=== PATIENT | male | born 1940 | race Caucasian/White ===

== ENCOUNTER 2016-12-09 09:02 | Emergency (ER) | payer MEDICARE, BC ==
--- NOTE | 2016-12-09 10:11 | EDM.PDOC ---
ED HPI GENERAL MEDICAL PROBLEM - General Chief Complaint: Neck Problem Stated Complaint: FELL, HURT NECK AND SHOULDER Time Seen by Provider: 12/09/16 09:55 Source of Information: Reports: Patient History Limitations: Reports: No Limitations - History of Present Illness INITIAL COMMENTS - FREE TEXT/NARRATIVE: This 76 yo male patient reports to the ED with increased neck pain. The patient reports he fell while putting on his boots on Tuesday. During the fall, the patient reports he hit his head and has been having increased stiffness and pain in his neck. The patient was seen in the Clinic on Tuesday, but did not go into detail about his neck pain during that visit. Onset Date: 12/06/16 Duration: Constant Location: Reports: Neck (stiffness, pain), Upper Extremity, Left (heaviness), Upper Extremity, Right (heaviness) Quality: Reports: Ache, Dull Severity: Moderate Improves with: Reports: Medication (Oxycodone (takes for chronic back pain)) Worsens with: Reports: Movement Associated Symptoms: Reports: No Other Symptoms Lower Posterior Neck Pain Score (Numeric/FACES): 9 - Related Data Allergies Allergy/AdvReac Type Severity Reaction Status Date / Time No Known Allergies Allergy Verified 12/09/16 09:27 Home Meds: Home Meds Allopurinol [Allopurinol] 300 mg PO DAILY 12/09/16 [History] Escitalopram [Lexapro] 10 mg PO DAILY 12/09/16 [History] Finasteride [Proscar] 5 mg PO DAILY 12/09/16 [History] Furosemide [Lasix] 20 tab PO DAILY 12/09/16 [History] Insulin Lispro Prot/Lispro [HumaLOG Mix 75-25] 44 units SUBCUT BID 12/09/16 [ History] Omeprazole [Omeprazole] 20 mg PO DAILY 12/09/16 [History] Pregabalin [Lyrica] 150 mg PO TID 12/09/16 [History] Ramipril [Ramipril] 10 mg PO DAILY 12/09/16 [History] Simvastatin [Simvastatin] 20 mg PO DAILY 12/09/16 [History] Tamsulosin [Flomax] 0.4 mg PO DAILY 12/09/16 [History] metFORMIN HCl [Metformin HCl] 500 mg PO BID 12/09/16 [History] oxyCODONE HCl/Acetaminophen [Percocet 10-325 mg Tablet] 1 tab PO BID 12/09/16 [ History] Past Medical History HEENT History: Reports: Impaired Vision Cardiovascular History: Reports: High Cholesterol, Hypertension Gastrointestinal History: Reports: GERD Genitourinary History: Reports: BPH Musculoskeletal History: Reports: Back Pain, Chronic, Fracture, Gout Psychiatric History: Reports: Depression Endocrine/Metabolic History: Reports: Diabetes, Type II - Infectious Disease History Infectious Disease History: Reports: None - Past Surgical History Musculoskeletal Surgical History: Reports: Knee Replacement Other Musculoskeletal Surgeries/Procedures:: back surgery Social & Family History - Tobacco Use Smoking Status *Q: Former Smoker Used Tobacco, but Quit: Yes Month Tobacco Last Used: 1979 - Caffeine Use Caffeine Use: Reports: Coffee, Soda, Tea - Recreational Drug Use Recreational Drug Use: No ED ROS GENERAL - Review of Systems Review Of Systems: ROS reveals no pertinent complaints other than HPI. ED EXAM, UPPER BACK/NECK PAIN - Physical Exam Exam: See Below Exam Limited By: No Limitations General Appearance: Alert, WD/WN, Moderate Distress, Obese Eye Exam: Bilateral Eye: EOMI, Normal Inspection, PERRL Ears Exam: Normal External Exam, Normal Canal, Hearing Grossly Normal, Normal TMs Nose Exam: Normal Inspection, Normal Mucousa, No Blood Throat/Mouth Exam: Normal Inspection, Normal Lips, Normal Teeth, Normal Gums, Normal Oropharynx, Normal Voice, No Airway Compromise Neck Exam: Painful Range of Motion, Spinous Processes Tender (C6-C7), Stiff Neck , Tenderness Nexus Criteria: Posterior, Midline Cervical Tenderness. No: Evidence of Intoxication, Altered Level of Consciousness, Focal Neurological Deficit, Painful Distraction Injuries Cardiovascular/Respiratory: Regular Rate, Rhythm, No M/R/G, Normal Peripheral Pulses, No JVD, Normal Breath Sounds, No Respiratory Distress GI/Abdominal: Normal Bowel Sounds, Soft, Non-Tender, No Organomegaly, No Distention, No Abnormal Bruit, No Mass (Male) Exam: Deferred Rectal (Males) Exam: Deferred Back Exam: Normal Inspection, Full Range of Motion, NT Extremities: Normal Inspection, Normal Range of Motion, Non-Tender, No Pedal Edema, Normal Capillary Refill Neurologic: science technician II-XII nml As Tested, No Motor/Sensory Deficits, Alert, Normal Mood/Affect, Oriented x 3 Psychiatric: Normal Affect, Normal Mood Skin Exam: Normal Color, Warm/Dry Lymphatic: No Adenopathy Course - Vital Signs Last Recorded V/S: Last Vital Signs Temp 36.6 C 12/09/16 09:35 Pulse 89 12/09/16 09:35 Resp 16 12/09/16 09:35 BP 145/74 H 12/09/16 09:35 Pulse Ox 95 12/09/16 09:35 - Orders/Labs/Meds Orders: Active Orders 24 hr Category Date Time Status Cervical Spine wo Cont [CT] Urgent Exams 12/09/16 10:00 Taken Orphenadrine [Norflex] Med 12/09/16 11:15 Ordered 60 mg IM Q12H Medication Orders Orphenadrine Citrate (Norflex) 60 mg IM Q12H CELINA Meds: Medications Generic Name Dose Route Start Last Admin Trade Name Freq PRN Reason Stop Dose Admin Orphenadrine Citrate 60 mg 12/09/16 11:15 Norflex IM Q12H CELINA Discontinued Medications Generic Name Dose Route Start Last Admin Trade Name Freq PRN Reason Stop Dose Admin Ketorolac Tromethamine 60 mg 12/09/16 11:12 Toradol IM 12/09/16 11:13 ONETIME ONE Departure - Departure Time of Disposition: 11:16 Disposition: Home, Self-Care 01 Condition: Fair Clinical Impression: Neck muscle strain Qualifiers: Encounter type: initial encounter Qualified Code(s): S16.1XXA - Strain of muscle, fascia and tendon at neck level, initial encounter Cervical compression fracture Qualifiers: Encounter type: initial encounter Qualified Code(s): M48.52XA - Collapsed vertebra, not elsewhere classified, cervical region, initial encounter for fracture - Discharge Information Instructions: Cervical Sprain, [id number], Spinal Compression Fracture Forms: ED Department Discharge Care Plan Goals: The patient was advised of the examination and CT results during the visit. The patient was given injections of Toradol and Norflex while in the ED. The patient was given a script for Toradol (10 mg) #20 to take 1 by mouth every 6 hours with food and Flexeril (10 mg) #10 to take 1 by mouth at bedtime as needed. The patient may continue with his pain medications as prescribed. If the patient has any additional symptoms or concerns, the patient should follow- up with his primary care facility for continued evaluation and management. - My Orders Last 24 Hours: My Active Orders 12/09/16 10:00 Cervical Spine wo Cont [CT] Urgent 12/09/16 11:15 Orphenadrine [Norflex] 60 mg IM Q12H - Assessment/Plan Last 24 Hours: My Active Orders 12/09/16 10:00 Cervical Spine wo Cont [CT] Urgent 12/09/16 11:15 Orphenadrine [Norflex] 60 mg IM Q12H
[2016-12-09] MEDS ORDERED: Ketorolac 30 MG/ML SDV IM ONE (11:12)
--- NOTE | 2016-12-09 11:23 | CT ---
CLINICAL HISTORY: 76-year-old male with lower neck pain associated with a fall reported February 09 after fall off of ladder to have "near complete loss of intervertebral disc spacing C3-4 C4-5 C5- 6 and C6-C7 levels with associated hypertrophic spur formation compromising bony spinal canal" (no f ractures). Follow-up please. SCAN TECHNIQUE: Emergency unenhanced CT scan cervical spine obtained with the patient lying supine o n the Siemens multislice CT scanner [place], [place]. All data archiv ed in the PACS system for storage, reformatting and study. INTERPRETATION: Markedly abnormal. 1. 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 , unchanged since 2009. 2. *Compression fractures (insufficiency?) osteoporotic C5 and C6 vertebral bodies new since 2009 bu t without prevertebral soft tissue swelling or spondylolisthesis, i.e., age fractures uncertain. No jump locked facets. 3. Chronic reactive arthritic changes atlantoaxial joint. 4. No basal skull fracture. Mastoid sinuses clear.
[2016-12-09 11:29] VITALS: BP 159/78
== END 2016-12-09 11:35 | disposition home or self-care (01) ==
LOC: DL.ED 09:02
DX: S16.1XXA Strain of muscle, fascia and tendon at neck level, initial encounter (principal); I10 Essential (primary) hypertension; E78.00 Pure hypercholesterolemia, unspecified; K21.9 Gastro-esophageal reflux disease without esophagitis; E11.9 Type 2 diabetes mellitus without complications; Z79.84 Long term (current) use of oral hypoglycemic drugs; Z79.899 Other long term (current) drug therapy; Z87.891 Personal history of nicotine dependence; W19.XXXA Unspecified fall, initial encounter
CPT/HCPCS: 72125; 96372; 99284; J1885; J2360

== ENCOUNTER 2017-10-28 08:26 | Inpatient (IN) | payer MEDICARE, BC ==
[2017-10-28] MEDS ORDERED: Acetaminophen 325 MG Tab PO PRN (16:32)
[2017-10-28] MEDS ORDERED: Bisacodyl 5 MG Tab PO PRN (16:32)
[2017-10-28] MEDS ORDERED: Docusate Sodium 100 MG Cap PO PRN ×2 (16:32→16:45)
[2017-10-28] MEDS ORDERED: Hydrocortisone 2.5% Crm 30 GM Tube TOP PRN (16:45)
[2017-10-28] MEDS ORDERED: Non-Formulary Medication 1 Each (Acetaminophen [Tylenol Arthritis] 1,300 MG) PO PRN (16:45)
--- NOTE | 2017-10-28 16:50 | PCM.HP ---
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 He had L1 laminectomy with decompressive facetectomies L1-L2 with pedicle screw fixation and posterolateral fusion for L1 -L2 for severe stenosis and degenerative disk disease on 10/25/[address] Gentile. He was discharged to our swing bed to continue with PT/OT. Seen at bed side, patient has no complaint at this time. He only notes pain to the back. Pain is a mild discomfort, 3/10, non-radiating. He has no fever, chills, chest pain or SOB. Onset of Symptoms: Reports: Gradual Duration of Symptoms: Reports: Week(s): Quality: Reports: Dull Improves with: Reports: Rest Worsens with: Reports: None, Movement Context: Reports: Activity/Exercise Associated Symptoms: Reports: No Other Symptoms Middle Back Pain Score (Numeric/FACES): 5 - Related Data Allergies/Adverse Reactions: Allergies Allergy/AdvReac Type Severity Reaction Status Date / Time No Known Allergies Allergy Verified 10/28/17 14:17 Home Medications: Home Meds Allopurinol 300 mg PO DAILY 12/09/16 [History] Finasteride [Proscar] 5 mg PO BEDTIME 12/09/16 [History] Furosemide [Lasix] 20 tab PO DAILY 12/09/16 [History] Insulin Lispro Prot/Lispro [HumaLOG Mix 75-25] 44 units SUBCUT BIDMEALS [History] Omeprazole 20 mg PO DAILY 12/09/16 [History] Pregabalin [Lyrica] 150 mg PO TID 12/09/16 [History] Ramipril 10 mg PO DAILY 12/09/16 [History] Simvastatin 20 mg PO BEDTIME 12/09/16 [History] Tamsulosin [Flomax] 0.4 mg PO BID 12/09/16 [History] metFORMIN HCl [Metformin HCl] 1,000 mg PO BIDMEALS 12/09/16 [History] oxyCODONE HCl/Acetaminophen [Percocet 10-325 mg Tablet] 1 tab PO TID PRN [History] Acetaminophen [Tylenol Arthritis] 1,300 mg PO DAILY PRN 10/27/17 [History] DULoxetine HCl [Duloxetine HCl] 30 mg PO DAILY 10/27/17 [History] Docusate Sodium [Colace] 100 - 200 mg PO DAILY PRN 10/27/17 [History] Furosemide 20 mg PO 1400 PRN 10/27/17 [History] Hydrocortisone [Hydrocortisone 2.5% Crm] 1 applic TOP TID PRN 10/27/17 [History] Multivitamins,Therapeutic [Thera] 1 tab PO DAILY 10/27/17 [History] Past Medical History HEENT History: Reports: Impaired Vision Cardiovascular History: Reports: High Cholesterol, Hypertension Gastrointestinal History: Reports: GERD Genitourinary History: Reports: BPH, Urinary Incontinence Musculoskeletal History: Reports: Back Pain, Chronic, Fracture, Gout Psychiatric History: Reports: Depression Endocrine/Metabolic History: Reports: Diabetes, Type II - Infectious Disease History Infectious Disease History: Reports: Measles, Other (See Below) Other Infectious Disease History: years ago - Past Surgical History Musculoskeletal Surgical History: Reports: Knee Replacement Other Musculoskeletal Surgeries/Procedures:: back surgery Social & Family History - Family History Family Medical History: Noncontributory - Tobacco Use Smoking Status *Q: Former Smoker Years of Tobacco use: 25 Used Tobacco, but Quit: Yes Month/Year Tobacco Last Used: May - Caffeine Use Caffeine Use: Reports: Coffee, Soda - Recreational Drug Use Recreational Drug Use: No H&P Review of Systems - Review of Systems: Review Of Systems: See Below General: Reports: No Symptoms HEENT: Reports: No Symptoms Pulmonary: Reports: No Symptoms Cardiovascular: Reports: No Symptoms Gastrointestinal: Reports: No Symptoms Genitourinary: Reports: No Symptoms Musculoskeletal: Reports: No Symptoms Skin: Reports: No Symptoms Psychiatric: Reports: No Symptoms Neurological: Reports: No Symptoms Hematologic/Lymphatic: Reports: No Symptoms Immunologic: Reports: No Symptoms Exam - Exam Exam: See Below - Vital Signs Vital Signs: Last Vital Signs Temp 98.1 F 10/28/17 13:42 Pulse 108 H 10/28/17 13:42 Resp 20 10/28/17 13:42 BP 148/66 H 10/28/17 13:42 Pulse Ox 97 10/28/17 13:42 Weight: 236 lb 1.6 oz - Exam General: Alert, Oriented, 4 HEENT: PERRLA, Hearing Intact, Mucosa Moist & [place], Nares Patent, Normal Nasal Septum, Posterior Pharynx Clear, Conjunctiva Clear, EOMI, EACs Clear, TMs Clear Neck: Supple, Trachea Midline, 2 Lungs: Clear to Auscultation, Normal Respiratory Effort Cardiovascular: Regular Rate, Regular Rhythm GI/Abdominal Exam: Normal Bowel Sounds, Soft, Non-Tender, No Organomegaly, No Distention, No Abnormal Bruit, No Mass, Pelvis Stable (Male) Exam: No Hernia, Normal Inspection, Normal Prostate, Circumcised Rectal (Males) Exam: Normal Exam, Normal Rectal Tone, Prostate Normal Back Exam: Normal Inspection, Full Range of Motion, Other (dressing to the back appears dry and clean) Extremities: Normal Inspection, Normal Range of Motion, Non-Tender, No Pedal Edema, Normal Capillary Refill Skin: Warm, Dry, Intact Neurological: Cranial Nerves Intact, Reflexes Equal Bilateral Neuro Extensive - Mental Status: Alert, Oriented x3, Normal Mood/Affect, Normal Cognition Neuro Extensive - Motor, Sensory, Reflexes: CN II-XII Intact, Normal Gait, Normal Reflexes Psychiatric: Alert, Normal Affect, Normal Mood - Patient Data Result Diagrams: 10/29/17 06:27 10/29/17 06:27 - Problem List (1) Lumbar stenosis with neurogenic claudication SNOMED Code(s): 576463922599540 ICD Code: M48.062 - SPINAL STENOSIS, LUMBAR REGION WITH NEUROGENIC CLAUDICATION Status: Acute Current Visit: Yes Problem List Initiated/Reviewed/Updated: Yes Orders Last 24hrs: Active Orders 24 hr Category Date Time Status Patient Status [ADT] Routine ADT 10/28/17 16:35 Ordered Ambulate [RC] ASDIRECTED Care 10/28/17 16:32 Ordered Blood Glucose Check, Bedside [RC] QIDACANDBED Care 10/28/17 16:32 Ordered Oxygen Therapy [RC] PRN Care 10/28/17 16:35 Ordered Up With Assistance [RC] ASDIRECTED Care 10/28/17 16:32 Ordered VTE/DVT Education [RC] PER UNIT ROUTINE Care 10/28/17 16:35 Ordered Vital Signs [RC] PER UNIT ROUTINE Care 10/28/17 16:35 Ordered Vital Signs [RC] Q4H Care 10/28/17 16:32 Ordered Consult to Wound Ostomy Continence Nurse [CONS] Routine Cons 10/28/17 16:32 Ordered OT Evaluation and Treatment [CONS] Routine Cons 10/28/17 16:32 Ordered PT Evaluation and Treatment [CONS] Routine Cons 10/28/17 16:32 Ordered Consistent Carbohydrate Diet [DIET] Diet 10/28/17 Dinner Ordered BMP [BASIC METABOLIC PANEL,BMP] [CHEM] Routine Lab 10/28/17 05:00 Ordered CBC WITH AUTO DIFF [HEME] Routine Lab 10/29/17 05:00 Ordered Acetaminophen [Tylenol Arthritis] Med 10/28/17 16:45 Ordered 1,300 mg PO DAILY PRN Acetaminophen [Tylenol] Med 10/28/17 16:32 Ordered 650 mg PO Q4H PRN Allopurinol [Zyloprim] Med 10/29/17 09:00 Ordered 300 mg PO DAILY Bisacodyl [Dulcolax] Med 10/28/17 16:32 Ordered 5 mg PO DAILY PRN DULoxetine [Cymbalta] Med 10/29/17 09:00 Ordered 30 mg PO DAILY Docusate Sodium [Colace] Med 10/28/17 16:45 Ordered 100 - 200 mg PO DAILY PRN Docusate Sodium [Colace] Med 10/28/17 16:32 Ordered 100 mg PO BID PRN Finasteride [Proscar] Med 10/28/17 21:00 Ordered 5 mg PO BEDTIME Furosemide [Lasix] Med 10/29/17 14:00 Ordered 20 mg PO 1400 PRN Heparin Sodium Med 10/28/17 16:45 Ordered 5,000 units SUBCUT Q12H Hydrocortisone [Hydrocortisone 2.5% Crm] Med 10/28/17 16:45 Ordered 1 applic TOP TID PRN Insulin Lispro Prot/Lispro Med 10/28/17 18:00 Ordered 44 units SUBCUT BIDMEALS Multivitamins,Therapeutic [Thera] Med 10/29/17 09:00 Ordered 1 tab PO DAILY Omeprazole Med 10/29/17 09:00 Ordered 20 mg PO DAILY Pregabalin [Lyrica] Med 10/28/17 21:00 Ordered 150 mg PO TID Ramipril [Ramipril] Med 10/29/17 09:00 Ordered 10 mg PO DAILY Simvastatin [Simvastatin] Med 10/28/17 21:00 Ordered 20 mg PO BEDTIME Tamsulosin [Flomax] Med 10/28/17 21:00 Ordered 0.4 mg PO BID metFORMIN [Glucophage] Med 10/28/17 18:00 Ordered 1,000 mg PO BIDMEALS oxyCODONE HCl/Acetaminophen Med 10/28/17 16:45 Ordered 1 tab PO TID PRN Antiembolic Hose [OM.PC] Per Unit Routine Oth 10/28/17 16:41 Ordered Sequential Compression Device [OM.PC] Per Unit Routine Oth 10/28/17 16:41 Ordered Resuscitation Status Routine Resus Stat 10/28/17 16:32 Ordered Medication Orders Acetaminophen (Tylenol) 650 mg PO Q4H PRN PRN Reason: Pain (Mild 1-3)/fever Allopurinol (Zyloprim) 300 mg PO DAILY [facility]ELINA Bisacodyl (Dulcolax) 5 mg PO DAILY PRN PRN Reason: Constipation Docusate Sodium (Colace) 100 mg PO BID PRN PRN Reason: Constipation Docusate Sodium (Colace) 100 - 200 mg PO DAILY PRN PRN Reason: Constipation Duloxetine HCl (Cymbalta) 30 mg PO DAILY [facility] Finasteride (Proscar) 5 mg PO BEDTIME [facility]ELINA Furosemide (Lasix) 20 mg PO 1400 PRN PRN Reason: Edema Heparin Sodium (Porcine) (Heparin Sodium) 5,000 units SUBCUT Q12HR [facility] Hydrocortisone (Hydrocortisone 2.5% Crm) gm TOP TID PRN PRN Reason: Other Metformin HCl (Glucophage) 1,000 mg PO BIDMEALS [facility] Non-Formulary Medication (Acetaminophen [Tylenol Arthritis]) 1,300 mg PO DAILY PRN PRN Reason: Pain Non-Formulary Medication (Insulin Lispro Prot/Lispro) 44 units SUBCUT BIDMEALS [facility] Non-Formulary Medication (Multivitamins,Therapeutic [Thera]) 1 tab PO DAILY [facility] Non-Formulary Medication (Oxycodone Hcl/Acetaminophen) 1 tab PO TID PRN PRN Reason: Pain Non-Formulary Medication (Pregabalin [Lyrica]) 150 mg PO TID [facility] Non-Formulary Medication (Ramipril [Ramipril]) 10 mg PO DAILY [facility] Non-Formulary Medication (Simvastatin [Simvastatin]) 20 mg PO BEDTIME [facility] Omeprazole (Omeprazole) 20 mg PO DAILY [facility] Tamsulosin HCl (Flomax) 0.4 mg PO BID [facility] Assessment/Plan Comment:: 1. L1-L2 severe stenosis and degenerative disk disease -s/p L1 laminectomy with decompressive facetectomies L1-L2 with pedicle screw fixation and posterolateral fusion -Continue PT/OT -Continue current pain medication 2. Type 2 diabetes mellitus. -On 70/30 insulin. T -monitor blood glucose closely 3. Hypertension -BP within acceptable limits -Continue with current antihypertensive medications 4. Deep venous thrombosis (DVT) prophylaxis -Lovenox for DVT prophylaxis. 5. Anemia. This could be anemia of chronic disease. -No indication for transfusion at this time. 6. Gastroesophageal reflux disease. -Continue with proton pump inhibitor. 7. Diabetic diet 8. Full code
[2017-10-28] MEDS: Insulin Lispro Protamine/Lispro 75-25 100 Units/ML 10 ML Vial SUBCUT SCH (18:19)
[2017-10-28] MEDS: metFORMIN 500 MG Tab PO SCH (18:19)
[2017-10-28] MEDS: Acetaminophen/oxyCODONE 325-5 MG Tab PO PRN (19:57)
[2017-10-28] MEDS: Simvastatin 10 MG Tab PO SCH (20:50)
[2017-10-28] MEDS: Pregabalin 75 MG Cap PO SCH (20:50)
[2017-10-28] MEDS: Finasteride 5 MG Tab PO SCH (20:51)
[2017-10-28] MEDS: Tamsulosin 0.4 MG Cap.ER PO SCH (20:51)
[2017-10-28] MEDS: Heparin Sodium 5,000 Units/ML Vial SUBCUT SCH (20:52)
[2017-10-29] MEDS: Omeprazole 20 MG Cap.CR PO SCH (05:06)
[2017-10-29] MEDS: Acetaminophen/oxyCODONE 325-5 MG Tab PO PRN ×3 (05:06→20:38)
[2017-10-29] MEDS: Tamsulosin 0.4 MG Cap.ER PO SCH ×2 (08:25→20:28)
[2017-10-29] MEDS: DULoxetine 30 MG Cap PO SCH (08:25)
[2017-10-29] MEDS: metFORMIN 500 MG Tab PO SCH ×2 (08:25→17:20)
[2017-10-29] MEDS: Pregabalin 75 MG Cap PO SCH ×3 (08:25→20:27)
[2017-10-29] MEDS: Ramipril 5 MG Cap PO SCH (08:26)
[2017-10-29] MEDS: Multivitamins,Therapeutic Tab PO SCH (08:26)
[2017-10-29] MEDS: Allopurinol 300 MG Tab PO SCH (08:26)
[2017-10-29] MEDS: Furosemide 20 MG Tab PO SCH (08:26)
[2017-10-29] MEDS: Insulin Lispro Protamine/Lispro 75-25 100 Units/ML 10 ML Vial SUBCUT SCH ×2 (08:27→17:19)
[2017-10-29] MEDS: Heparin Sodium 5,000 Units/ML Vial SUBCUT SCH ×2 (08:29→20:44)
[2017-10-29] MEDS ORDERED: Aluminum Hydroxide/Magnesium Hydroxide/Simethicone Susp 30 ML Cup PO PRN (10:01)
[2017-10-29] MEDS ORDERED: Furosemide 20 MG Tab PO PRN (14:00)
[2017-10-29] MEDS: Simvastatin 10 MG Tab PO SCH (20:27)
[2017-10-29] MEDS: Finasteride 5 MG Tab PO SCH (20:28)
[2017-10-30] MEDS: Omeprazole 20 MG Cap.CR PO SCH (06:17)
[2017-10-30] MEDS: metFORMIN 500 MG Tab PO SCH ×2 (09:06→17:18)
[2017-10-30] MEDS: Ramipril 5 MG Cap PO SCH (09:06)
[2017-10-30] MEDS: DULoxetine 30 MG Cap PO SCH (09:07)
[2017-10-30] MEDS: Tamsulosin 0.4 MG Cap.ER PO SCH ×2 (09:08→20:12)
[2017-10-30] MEDS: Acetaminophen/oxyCODONE 325-5 MG Tab PO PRN ×3 (09:08→20:13)
[2017-10-30] MEDS: Allopurinol 300 MG Tab PO SCH (09:08)
[2017-10-30] MEDS: Multivitamins,Therapeutic Tab PO SCH (09:09)
[2017-10-30] MEDS: Furosemide 20 MG Tab PO SCH (09:09)
[2017-10-30] MEDS: Pregabalin 75 MG Cap PO SCH ×3 (09:09→20:12)
[2017-10-30] MEDS: Heparin Sodium 5,000 Units/ML Vial SUBCUT SCH ×2 (09:10→20:18)
[2017-10-30] MEDS: Insulin Lispro Protamine/Lispro 75-25 100 Units/ML 10 ML Vial SUBCUT SCH ×2 (09:12→17:22)
[2017-10-30] MEDS: Simvastatin 10 MG Tab PO SCH (20:12)
[2017-10-30] MEDS: Finasteride 5 MG Tab PO SCH (20:13)
[2017-10-31] MEDS: Omeprazole 20 MG Cap.CR PO SCH (06:20)
[2017-10-31] MEDS: Pregabalin 75 MG Cap PO SCH ×3 (08:03→22:20)
[2017-10-31] MEDS: Ramipril 5 MG Cap PO SCH (08:03)
[2017-10-31] MEDS: Acetaminophen/oxyCODONE 325-5 MG Tab PO PRN ×3 (08:04→22:21)
[2017-10-31] MEDS: metFORMIN 500 MG Tab PO SCH ×2 (08:04→18:13)
[2017-10-31] MEDS: Allopurinol 300 MG Tab PO SCH (08:04)
[2017-10-31] MEDS: Multivitamins,Therapeutic Tab PO SCH (08:04)
[2017-10-31] MEDS: Tamsulosin 0.4 MG Cap.ER PO SCH ×2 (08:05→22:21)
[2017-10-31] MEDS: DULoxetine 30 MG Cap PO SCH (08:05)
[2017-10-31] MEDS: Insulin Lispro Protamine/Lispro 75-25 100 Units/ML 10 ML Vial SUBCUT SCH ×2 (08:06→18:14)
[2017-10-31] MEDS: Heparin Sodium 5,000 Units/ML Vial SUBCUT SCH ×2 (08:06→22:20)
[2017-10-31] MEDS: Furosemide 20 MG Tab PO SCH (08:06)
[2017-10-31] MEDS: Simvastatin 10 MG Tab PO SCH (22:20)
[2017-10-31] MEDS: Finasteride 5 MG Tab PO SCH (22:23)
[2017-11-01] MEDS: Omeprazole 20 MG Cap.CR PO SCH (06:40)
--- NOTE | 2017-11-01 08:25 | PCM.PN ---
- General Info Date of Service: 11/01/17 Admission Dx/Problem (Free Text): Admission Diagnosis/Problem Admission Diagnosis/Problem Spinal stenosis of lumbar region Subjective Update: Becca Gaitan is 77 y/o male with PMH of thoracic myelopathy secondary to arachnoid cyst resulting in spinal stenosis requiring T 10-T 12 laminectomy in 03/2017, diabetes, hypertension, HLD. He had L1 laminectomy with decompressive facetectomies L1-L2 with pedicle screw fixation and posterolateral fusion for L1 -L2 for severe stenosis and degenerative disk disease on 10/25/[address] Gentile. He was discharged to our swing bed to continue with PT/OT. Seen at bed side, patient has no complaint at this time. No fever or chills. Had episode of hypoglycemia and his insulin was decreased yesterday. Functional Status: Reports: Pain Controlled - Review of Systems General: Reports: No Symptoms HEENT: Reports: No Symptoms Pulmonary: Reports: No Symptoms Cardiovascular: Reports: No Symptoms Gastrointestinal: Reports: No Symptoms Genitourinary: Reports: No Symptoms Musculoskeletal: Reports: No Symptoms Skin: Reports: No Symptoms Neurological: Reports: No Symptoms Psychiatric: Reports: No Symptoms - Patient Data Vitals - Most Recent: Last Vital Signs Temp 97.5 F 11/01/17 08:16 Pulse 93 11/01/17 08:16 Resp 20 11/01/17 08:16 BP 140/63 11/01/17 08:16 Pulse Ox 97 11/01/17 08:16 Weight - Most Recent: 236 lb 1.6 oz I&O - Last 24 Hours: Intake & Output 10/31/17 11/01/17 11/01/17 22:59 06:59 14:59 Intake Total 130 550 Balance 130 550 Lab Results Last 24 Hours: Laboratory Results - last 24 hr 10/31/17 10/31/17 10/31/17 Range/Units 07:31 11:47 16:44 POC Glucose 139 H 133 H 136 H (83-110) mg/dl 10/31/17 11/01/17 Range/Units 20:51 07:51 POC Glucose 143 H 126 H (83-110) mg/dl Med Orders - Current: Current Medications Acetaminophen (Tylenol) 650 mg PO Q4H PRN PRN Reason: Pain (Mild 1-3)/fever Al Hydroxide/Mg Hydroxide (Mag-Al Plus) 30 ml PO Q8H PRN PRN Reason: Constipation Allopurinol (Zyloprim) 300 mg PO DAILY [facility] Last Admin: 10/31/17 08:04 Dose: 300 mg Bisacodyl (Dulcolax) 5 mg PO DAILY PRN PRN Reason: Constipation Docusate Sodium (Colace) 100 mg PO BID PRN PRN Reason: Constipation Last Admin: 10/29/17 05:11 Dose: 100 mg Docusate Sodium (Colace) 100 - 200 mg PO DAILY PRN PRN Reason: Constipation Duloxetine HCl (Cymbalta) 30 mg PO DAILY [facility] Last Admin: 10/31/17 08:05 Dose: 30 mg Finasteride (Proscar) 5 mg PO BEDTIME [facility] Last Admin: 10/31/17 22:23 Dose: 5 mg Furosemide (Lasix) 20 mg PO 1400 PRN PRN Reason: Edema Furosemide (Lasix) 20 mg PO DAILY [facility] Last Admin: 10/31/17 08:06 Dose: Not Given Heparin Sodium (Porcine) (Heparin Sodium) 5,000 units SUBCUT Q12HR [facility] Last Admin: 10/31/17 22:20 Dose: Not Given Hydrocortisone (Hydrocortisone 2.5% Crm) 0 gm TOP TID PRN PRN Reason: Other Insulin Lispro Protam/Lispro Human (Humalog Mix 75-25) 30 unit SUBCUT BIDMEALS [facility] Last Admin: 10/31/17 18:14 Dose: 30 units Metformin HCl (Glucophage) 1,000 mg PO BIDMEALS [facility] Last Admin: 10/31/17 18:13 Dose: 1,000 mg Multivitamins (Thera) 1 each PO DAILY [facility] Last Admin: 10/31/17 08:04 Dose: 1 each Omeprazole (Omeprazole) 20 mg PO ACBRK [facility] Last Admin: 11/01/17 06:40 Dose: 20 mg Oxycodone/Acetaminophen (Percocet 325-5 Mg) 1 tab PO TID PRN PRN Reason: Pain Last Admin: 10/31/17 22:21 Dose: 1 tab Pregabalin (Lyrica) 150 mg PO TID [facility] Last Admin: 10/31/17 22:20 Dose: 150 mg Ramipril (Altace) 10 mg PO DAILY [facility] Last Admin: 10/31/17 08:03 Dose: 10 mg Simvastatin (Zocor) 20 mg PO BEDTIME [facility] Last Admin: 10/31/17 22:20 Dose: 20 mg Tamsulosin HCl (Flomax) 0.4 mg PO BID [facility] Last Admin: 10/31/17 22:21 Dose: 0.4 mg Discontinued Medications Insulin Lispro Protam/Lispro Human (Humalog Mix 75-25) 44 unit SUBCUT BIDMEALS [facility] Last Admin: 10/30/17 09:12 Dose: Not Given Non-Formulary Medication (Acetaminophen [Tylenol Arthritis]) 1,300 mg PO DAILY PRN PRN Reason: Pain Oxycodone/Acetaminophen (Percocet 325-5 Mg) 1 tab PO TID PRN PRN Reason: Pain Last Admin: 10/29/17 05:06 Dose: 1 tab - Exam Quality Assessment: DVT Prophylaxis General: Alert, Oriented HEENT: Pupils Equal, Pupils Reactive, EOMI, Mucous Membr. Moist/[place] Neck: Supple Lungs: Clear to Auscultation, Normal Respiratory Effort Cardiovascular: Regular Rate, Regular Rhythm GI/Abdominal Exam: Normal Bowel Sounds, Soft, Non-Tender, No Organomegaly, No Distention, No Abnormal Bruit, No Mass, Pelvis Stable (Male) Exam: No Hernia, Normal Inspection, Normal Prostate, Circumcised Back Exam: Normal Inspection, Full Range of Motion Extremities: Normal Inspection, Normal Range of Motion, Non-Tender, No Pedal Edema, Normal Capillary Refill Skin: Warm, Dry, Intact Wound/Incisions: Healing Well Neurological: No New Focal Deficit Psy/Mental Status: Alert, Normal Affect, Normal Mood - Problem List & Annotations (1) Lumbar stenosis with neurogenic claudication SNOMED Code(s): 032768917407455 Code(s): M48.062 - SPINAL STENOSIS, LUMBAR REGION WITH NEUROGENIC CLAUDICATION Status: Acute Current Visit: Yes - Problem List Review Problem List Initiated/Reviewed/Updated: Yes - Plan Plan:: 1. L1-L2 severe stenosis and degenerative disk disease -s/p L1 laminectomy with decompressive facetectomies L1-L2 with pedicle screw fixation and posterolateral fusion -Continue PT/OT -Continue current pain medication 2. Type 2 diabetes mellitus. -70/30 insulin 30 units bid -monitor blood glucose closely 3. Hypertension -BP within acceptable limits -Continue with current antihypertensive medications 4. Deep venous thrombosis (DVT) prophylaxis -Lovenox for DVT prophylaxis. 5. Anemia. This could be anemia of chronic disease. -No indication for transfusion at this time. 6. Gastroesophageal reflux disease. -Continue with proton pump inhibitor. 7. Diabetic diet 8. Full code
[2017-11-01] MEDS: DULoxetine 30 MG Cap PO SCH (08:43)
[2017-11-01] MEDS: Insulin Lispro Protamine/Lispro 75-25 100 Units/ML 10 ML Vial SUBCUT SCH ×2 (08:43→17:06)
[2017-11-01] MEDS: Allopurinol 300 MG Tab PO SCH (08:43)
[2017-11-01] MEDS: metFORMIN 500 MG Tab PO SCH ×2 (08:44→17:06)
[2017-11-01] MEDS: Ramipril 5 MG Cap PO SCH (08:44)
[2017-11-01] MEDS: Multivitamins,Therapeutic Tab PO SCH (08:45)
[2017-11-01] MEDS: Pregabalin 75 MG Cap PO SCH ×3 (08:45→20:55)
[2017-11-01] MEDS: Tamsulosin 0.4 MG Cap.ER PO SCH ×2 (08:45→20:55)
[2017-11-01] MEDS: Heparin Sodium 5,000 Units/ML Vial SUBCUT SCH ×2 (08:48→20:58)
[2017-11-01] MEDS: Furosemide 20 MG Tab PO SCH (08:49)
[2017-11-01] MEDS: Acetaminophen/oxyCODONE 325-5 MG Tab PO PRN ×2 (09:55→20:55)
[2017-11-01] MEDS: Simvastatin 10 MG Tab PO SCH (20:50)
[2017-11-01] MEDS: Finasteride 5 MG Tab PO SCH (20:55)
[2017-11-02] MEDS: Omeprazole 20 MG Cap.CR PO SCH (05:58)
[2017-11-02] MEDS: metFORMIN 500 MG Tab PO SCH ×2 (08:11→17:23)
[2017-11-02] MEDS: Insulin Lispro Protamine/Lispro 75-25 100 Units/ML 10 ML Vial SUBCUT SCH ×2 (08:13→17:23)
[2017-11-02] MEDS: DULoxetine 30 MG Cap PO SCH (09:54)
[2017-11-02] MEDS: Multivitamins,Therapeutic Tab PO SCH (09:54)
[2017-11-02] MEDS: Allopurinol 300 MG Tab PO SCH (09:54)
[2017-11-02] MEDS: Tamsulosin 0.4 MG Cap.ER PO SCH ×2 (09:55→20:14)
[2017-11-02] MEDS: Pregabalin 75 MG Cap PO SCH ×3 (09:56→20:14)
[2017-11-02] MEDS: Ramipril 5 MG Cap PO SCH (09:56)
[2017-11-02] MEDS: Acetaminophen/oxyCODONE 325-5 MG Tab PO PRN ×2 (09:56→20:15)
[2017-11-02] MEDS: Furosemide 20 MG Tab PO SCH (09:57)
[2017-11-02] MEDS: Heparin Sodium 5,000 Units/ML Vial SUBCUT SCH ×2 (09:58→20:19)
[2017-11-02] MEDS: Simvastatin 10 MG Tab PO SCH (20:14)
[2017-11-02] MEDS: Finasteride 5 MG Tab PO SCH (20:15)
[2017-11-03] MEDS: Omeprazole 20 MG Cap.CR PO SCH (06:04)
[2017-11-03] MEDS: Acetaminophen/oxyCODONE 325-5 MG Tab PO PRN ×2 (06:05→20:07)
[2017-11-03] MEDS: Furosemide 20 MG Tab PO SCH (06:05)
[2017-11-03] MEDS: metFORMIN 500 MG Tab PO SCH ×2 (08:21→17:22)
[2017-11-03] MEDS: DULoxetine 30 MG Cap PO SCH (08:21)
[2017-11-03] MEDS: Ramipril 5 MG Cap PO SCH (08:21)
[2017-11-03] MEDS: Multivitamins,Therapeutic Tab PO SCH (08:21)
[2017-11-03] MEDS: Tamsulosin 0.4 MG Cap.ER PO SCH ×2 (08:21→20:02)
[2017-11-03] MEDS: Pregabalin 75 MG Cap PO SCH ×3 (08:21→20:01)
[2017-11-03] MEDS: Allopurinol 300 MG Tab PO SCH (08:21)
[2017-11-03] MEDS: Insulin Lispro Protamine/Lispro 75-25 100 Units/ML 10 ML Vial SUBCUT SCH ×2 (08:23→17:22)
[2017-11-03] MEDS: Heparin Sodium 5,000 Units/ML Vial SUBCUT SCH ×2 (08:25→20:04)
[2017-11-03] MEDS: Simvastatin 10 MG Tab PO SCH (20:02)
[2017-11-03] MEDS: Finasteride 5 MG Tab PO SCH (20:03)
[2017-11-04] MEDS: Omeprazole 20 MG Cap.CR PO SCH (06:15)
[2017-11-04] MEDS: Furosemide 20 MG Tab PO SCH (06:15)
[2017-11-04] MEDS: Acetaminophen/oxyCODONE 325-5 MG Tab PO PRN (06:16)
[2017-11-04] MEDS: Ramipril 5 MG Cap PO SCH (08:04)
[2017-11-04] MEDS: Allopurinol 300 MG Tab PO SCH (08:05)
[2017-11-04] MEDS: Pregabalin 75 MG Cap PO SCH (08:06)
[2017-11-04] MEDS: DULoxetine 30 MG Cap PO SCH (08:06)
[2017-11-04] MEDS: metFORMIN 500 MG Tab PO SCH (08:07)
[2017-11-04] MEDS: Multivitamins,Therapeutic Tab PO SCH (08:07)
[2017-11-04] MEDS: Tamsulosin 0.4 MG Cap.ER PO SCH (08:07)
[2017-11-04] MEDS: Insulin Lispro Protamine/Lispro 75-25 100 Units/ML 10 ML Vial SUBCUT SCH (08:08)
[2017-11-04] MEDS: Heparin Sodium 5,000 Units/ML Vial SUBCUT SCH (08:12)
[2017-11-04 08:14] VITALS: BP 114/48
--- NOTE | 2017-11-04 10:14 | PCM.DCSUM1 ---
Discharge Summary - Hospital Course Free Text/Narrative:: Admitted to swing bed for physical and occupational therapy 1. L1-L2 severe stenosis and degenerative disk disease -s/p L1 laminectomy with decompressive facetectomies L1-L2 with pedicle screw fixation and posterolateral fusion We will continue outpatient physical and occupational therapy 2. Type 2 diabetes mellitus. -70/30 insulin 30 units bid -monitor blood glucose at home 3. Hypertension -BP within acceptable limits 4. Gastroesophageal reflux disease. -Continue with proton pump inhibitor. Diagnosis: Stroke: No - Discharge Data Discharge Date: 11/04/17 Discharge Disposition: Home, Self-Care 01 Condition: Good - Patient Summary/Data Consults: Consultations 10/28/17 16:32 OT Evaluation and Treatment [CONS] Routine PT Evaluation and Treatment [CONS] Routine - Patient Instructions Diet: Heart Healthy Diet - Discharge Plan Prescriptions/Med Rec: Insulin Lispro Prot/Lispro [HumaLOG Mix 75-25] 30 unit SUBCUT BIDMEALS #1 vial Home Medications: Home Meds Allopurinol 300 mg PO DAILY 12/09/16 [History] Finasteride [Proscar] 5 mg PO BEDTIME 12/09/16 [History] Furosemide [Lasix] 20 tab PO DAILY 12/09/16 [History] Omeprazole 20 mg PO DAILY 12/09/16 [History] Pregabalin [Lyrica] 150 mg PO TID 12/09/16 [History] Ramipril 10 mg PO DAILY 12/09/16 [History] Simvastatin 20 mg PO BEDTIME 12/09/16 [History] Tamsulosin [Flomax] 0.4 mg PO BID 12/09/16 [History] metFORMIN HCl [Metformin HCl] 1,000 mg PO BIDMEALS 12/09/16 [History] oxyCODONE HCl/Acetaminophen [Percocet 10-325 mg Tablet] 1 tab PO TID PRN [History] Acetaminophen [Tylenol Arthritis] 1,300 mg PO DAILY PRN 10/27/17 [History] DULoxetine HCl [Duloxetine HCl] 30 mg PO DAILY 10/27/17 [History] Docusate Sodium [Colace] 100 - 200 mg PO DAILY PRN 10/27/17 [History] Furosemide 20 mg PO 1400 PRN 10/27/17 [History] Hydrocortisone [Hydrocortisone 2.5% Crm] 1 applic TOP TID PRN 10/27/17 [History] Multivitamins,Therapeutic [Thera] 1 tab PO DAILY 10/27/17 [History] Insulin Lispro Prot/Lispro [HumaLOG Mix 75-25] 30 unit SUBCUT BIDMEALS #1 vial 11/04/17 [Rx] Patient Handouts: Spinal Stenosis - General Info Date of Service: 11/04/17 Functional Status: Reports: Pain Controlled - Review of Systems General: Denies: Fever Pulmonary: Denies: Shortness of Breath Cardiovascular: Denies: Chest Pain Gastrointestinal: Denies: Abdominal Pain Neurological: Denies: Confusion - Patient Data Vitals - Most Recent: Last Vital Signs Temp 36.8 C 11/04/17 08:00 Pulse 90 11/04/17 08:00 Resp 18 11/04/17 08:00 BP 114/48 L 11/04/17 08:04 Pulse Ox 98 11/04/17 08:00 Weight - Most Recent: 104.054 kg I&O - Last 24 hours: Intake & Output 11/03/17 11/04/17 11/04/17 22:59 06:59 14:59 Intake Total 60 400 Balance 60 400 Lab Results - Last 24 hrs: Laboratory Results - last 24 hr 11/03/17 11/03/17 11/03/17 Range/Units 07:54 11:42 16:48 POC Glucose 143 H 117 H 156 H (83-110) mg/dl 11/03/17 11/03/17 11/04/17 Range/Units 21:21 23:00 07:29 POC Glucose 65 L 115 H 130 H (83-110) mg/dl Med Orders - Current: Current Medications Acetaminophen (Tylenol) 650 mg PO Q4H PRN PRN Reason: Pain (Mild 1-3)/fever Last Admin: 11/02/17 11:06 Dose: 650 mg Al Hydroxide/Mg Hydroxide (Mag-Al Plus) 30 ml PO Q8H PRN PRN Reason: Constipation Allopurinol (Zyloprim) 300 mg PO DAILY [facility] Last Admin: 11/04/17 08:05 Dose: 300 mg Bisacodyl (Dulcolax) 5 mg PO DAILY PRN PRN Reason: Constipation Docusate Sodium (Colace) 100 mg PO BID PRN PRN Reason: Constipation Last Admin: 10/29/17 05:11 Dose: 100 mg Docusate Sodium (Colace) 100 - 200 mg PO DAILY PRN PRN Reason: Constipation Duloxetine HCl (Cymbalta) 30 mg PO DAILY [facility] Last Admin: 11/04/17 08:06 Dose: 30 mg Finasteride (Proscar) 5 mg PO BEDTIME [facility] Last Admin: 11/03/17 20:03 Dose: 5 mg Furosemide (Lasix) 20 mg PO 1400 PRN PRN Reason: Edema Furosemide (Lasix) 20 mg PO DAILY@0700 [facility] Last Admin: 11/04/17 06:15 Dose: 20 mg Heparin Sodium (Porcine) (Heparin Sodium) 5,000 units SUBCUT Q12HR [facility] Last Admin: 11/04/17 08:12 Dose: 5,000 units Hydrocortisone (Hydrocortisone 2.5% Crm) 0 gm TOP TID PRN PRN Reason: Other Insulin Lispro Protam/Lispro Human (Humalog Mix 75-25) 30 unit SUBCUT BIDMEALS [facility] Last Admin: 11/04/17 08:08 Dose: 30 units Metformin HCl (Glucophage) 1,000 mg PO BIDMEALS [facility] Last Admin: 11/04/17 08:07 Dose: 1,000 mg Multivitamins (Thera) 1 each PO DAILY [facility] Last Admin: 11/04/17 08:07 Dose: 1 each Omeprazole (Omeprazole) 20 mg PO ACBRK [facility] Last Admin: 11/04/17 06:15 Dose: 20 mg Oxycodone/Acetaminophen (Percocet 325-5 Mg) 1 tab PO TID PRN PRN Reason: Pain Last Admin: 11/04/17 06:16 Dose: 1 tab Pregabalin (Lyrica) 150 mg PO TID [facility] Last Admin: 11/04/17 08:06 Dose: 150 mg Ramipril (Altace) 10 mg PO DAILY [facility] Last Admin: 11/04/17 08:04 Dose: 10 mg Simvastatin (Zocor) 20 mg PO BEDTIME [facility] Last Admin: 11/03/17 20:02 Dose: 20 mg Tamsulosin HCl (Flomax) 0.4 mg PO BID [facility] Last Admin: 11/04/17 08:07 Dose: 0.4 mg Discontinued Medications Furosemide (Lasix) 20 mg PO DAILY [facility] Last Admin: 11/02/17 09:57 Dose: Not Given Insulin Lispro Protam/Lispro Human (Humalog Mix 75-25) 44 unit SUBCUT BIDMEALS [facility] Last Admin: 10/30/17 09:12 Dose: Not Given Non-Formulary Medication (Acetaminophen [Tylenol Arthritis]) 1,300 mg PO DAILY PRN PRN Reason: Pain Oxycodone/Acetaminophen (Percocet 325-5 Mg) 1 tab PO TID PRN PRN Reason: Pain Last Admin: 10/29/17 05:06 Dose: 1 tab - Exam General: Reports: Alert, Oriented Neck: Reports: Supple Lungs: Reports: Clear to Auscultation, Normal Respiratory Effort Cardiovascular: Reports: Regular Rate, Regular Rhythm GI/Abdominal Exam: Normal Bowel Sounds, Soft, Non-Tender Extremities: No Pedal Edema
== END 2017-11-04 11:30 | disposition home or self-care (01) | DRG 561 ==
LOC: UNDOADMIN 13:19 → DL.MS 13:19
PROVIDERS: ADMIT Student in an Organized Health Care Education/Training Program; ATTEND Student in an Organized Health Care Education/Training Program
DX: Z47.89 Encounter for other orthopedic aftercare (principal); M48.062 Spinal stenosis, lumbar region with neurogenic claudication; E11.9 Type 2 diabetes mellitus without complications; I10 Essential (primary) hypertension; E78.5 Hyperlipidemia, unspecified; K21.9 Gastro-esophageal reflux disease without esophagitis; N40.1 Benign prostatic hyperplasia with lower urinary tract symptoms; N39.498 Other specified urinary incontinence; M10.9 Gout, unspecified; F32.9 Major depressive disorder, single episode, unspecified; D64.9 Anemia, unspecified; H54.7 Unspecified visual loss; Z96.659 Presence of unspecified artificial knee joint; Z87.891 Personal history of nicotine dependence; Z79.4 Long term (current) use of insulin; Z79.899 Other long term (current) drug therapy
CPT/HCPCS: 36415; 80048; 82962; 85025; 97110-GO; 97110-GP; 97116-GP; 97140-GP; 97162-GP; 97166-GO; 97530-GO; A9270-GY; J1644; J1815

== ENCOUNTER 2019-06-02 19:08 | Emergency (ER) | payer MEDICARE, BC ==
--- NOTE | 2019-06-02 21:04 | EDM.PDOC ---
ED HPI GENERAL MEDICAL PROBLEM - General Chief Complaint: Back Pain or Injury Stated Complaint: FELL AT HOME, ALL OF THE BACK. Time Seen by Provider: 06/02/19 20:59 Source of Information: Reports: Patient, Family History Limitations: Reports: No Limitations - History of Present Illness INITIAL COMMENTS - FREE TEXT/NARRATIVE: spouse states pt fell onto his face yesterday think he might have been out for ? time. pt states been having LBP for long time and been unsteady alot. spouse states he is too hard to get back up from floor but their son came to help. tonight pain so bad that he has hard time in moving. pt denies chest pain but some SOB on-off. used to take water pills but stopped long time ago forgot why. right now his back hurts most. Treatments DISCHARGE PLANNER: Reports: Acetaminophen Other Treatments DISCHARGE PLANNER: 1700 Lower Back Pain Score (Numeric/FACES): 10 - Related Data Allergies Allergy/AdvReac Type Severity Reaction Status Date / Time No Known Allergies Allergy Verified 06/02/19 20:35 Home Meds: Home Meds Finasteride [Proscar] 5 mg PO BEDTIME 12/09/16 [History] Omeprazole 20 mg PO DAILY 12/09/16 [History] Pregabalin [Lyrica] 150 mg PO BID 12/09/16 [History] Ramipril 10 mg PO DAILY 12/09/16 [History] Simvastatin 20 mg PO BEDTIME 12/09/16 [History] Tamsulosin [Flomax] 0.4 mg PO BID 12/09/16 [History] allopurinoL [Allopurinol] 300 mg PO DAILY 12/09/16 [History] metFORMIN HCl [Metformin HCl] 1,000 mg PO BIDMEALS 12/09/16 [History] oxyCODONE HCl/Acetaminophen [Percocet 10-325 mg Tablet] 1 tab PO TID PRN [History] Acetaminophen [Tylenol Arthritis] 1,000 mg PO DAILY PRN 10/27/17 [History] DULoxetine HCl [Duloxetine HCl] 30 mg PO DAILY 10/27/17 [History] Docusate Sodium [Colace] 100 - 200 mg PO DAILY PRN 10/27/17 [History] Hydrocortisone [Hydrocortisone 2.5% Crm] 1 applic TOP TID PRN 10/27/17 [History] Multivitamins,Therapeutic [Thera] 1 tab PO DAILY 10/27/17 [History] Insulin Lispro Prot/Lispro [HumaLOG Mix 75-25] 50 unit SUBCUT BIDMEALS 06/02/19 [History] Past Medical History HEENT History: Reports: Impaired Vision Cardiovascular History: Reports: High Cholesterol, Hypertension Gastrointestinal History: Reports: GERD Genitourinary History: Reports: BPH, Urinary Incontinence Musculoskeletal History: Reports: Back Pain, Chronic, Fracture, Gout Psychiatric History: Reports: Depression Endocrine/Metabolic History: Reports: Diabetes, Type II - Infectious Disease History Infectious Disease History: Reports: Measles, Other (See Below) Other Infectious Disease History: years ago - Past Surgical History Musculoskeletal Surgical History: Reports: Knee Replacement Other Musculoskeletal Surgeries/Procedures:: back surgery Social & Family History - Family History Family Medical History: Noncontributory - Caffeine Use Caffeine Use: Reports: Coffee, Soda ED ROS GENERAL - Review of Systems Review Of Systems: Comprehensive ROS is negative, except as noted in HPI. ED EXAM,LOWER BACK PAIN/INJURY - Physical Exam Exam: See Below Exam Limited By: No Limitations General Appearance: Alert, WD/WN, Mild Distress, Other (discomfort) Eye Exam: Bilateral Eye: PERRL (pupils ess ER @ 4mm) Ears: Hearing Grossly Normal Throat/Mouth: Normal Voice, No Airway Compromise Head: Facial Tenderness, Other (ecchymosis jaw area) Neck: Non-Tender, Full Range of Motion Respiratory/Chest: No Respiratory Distress Cardiovascular: Regular Rate, Rhythm GI/Abdominal: Soft, Non-Tender Back Exam: Paraspinal Tenderness, Other (L2-3-4 region) Neurological: Alert, No Motor/Sensory Deficits, Oriented x 3 Psychiatric: Flat Affect Skin Exam: Warm, Dry, Normal Color Lymphatic: No Adenopathy Course - Vital Signs Last Recorded V/S: Last Vital Signs Temp 36.2 C 06/02/19 21:31 Pulse 92 06/02/19 21:46 Resp 15 06/02/19 21:46 BP 210/94 H 06/02/19 21:46 Pulse Ox 93 L 06/02/19 21:46 - Orders/Labs/Meds Orders: Active Orders 24 hr Category Date Time Status EKG 12 Lead [EKG Documentation Completion] [RC] STAT Care 06/02/19 20:46 Active Cervical Spine wo Cont [CT] Urgent Exams 06/02/19 20:56 Taken Chest 1V Frontal [CR] Urgent Exams 06/02/19 20:50 Taken Head wo Cont [CT] Urgent Exams 06/02/19 20:47 Ordered Lumbar Spine wo Cont [CT] Urgent Exams 06/02/19 20:47 Ordered Max Facial Sinus wo Cont [CT] Urgent Exams 06/02/19 20:47 Ordered CULTURE BLOOD [BC] Stat Lab 06/02/19 22:15 Received HYDROmorphone [Dilaudid] Med 06/02/19 22:48 Once 1 mg IVPUSH ONETIME ONE Labs: Laboratory Tests 06/02/19 06/02/19 06/02/19 Range/Units 21:05 21:05 21:05 WBC 12.4 H (5.0-10.0) 10^3/uL RBC 3.21 L (4.6-6.2) 10^6/uL Hgb 10.4 L (14.0-18.0) g/dL Hct 29.7 L (40.0-54.0) % MCV 92.5 (80-100) fL MCH 32.4 (27.0-34.0) pg MCHC 35.0 (33.0-35.0) g/dL Plt Count 226 D (150-450) 10^3/uL Neut % (Auto) 85.9 H (42.2-75.2) % Lymph % (Auto) 7.2 L (20.5-50.1) % [place] % (Auto) 6.1 (2-8) % Eos % (Auto) 0.6 L (1.0-3.0) % Baso % (Auto) 0.2 (0.0-1.0) % Sodium 128 L (135-145) mmol/L Potassium 5.0 (3.6-5.0) mmol/L Chloride 95 L (101-111) mmol/L Carbon Dioxide 22.0 (21.0-31.0) mmol/L Anion Gap 16.0 BUN 14 (7-18) mg/dL Creatinine 1.4 H (0.6-1.3) mg/dL Est Cr Clr Drug Dosing 44.18 mL/min Estimated GFR (MDRD) 49 BUN/Creatinine Ratio 10.00 Glucose 232 H (74-105) mg/dL Lactic Acid (0.5-2.0) mmol/L Calcium 9.0 (8.4-10.2) mg/dl Total Bilirubin 0.9 (0.2-1.0) mg/dL AST 20 (10-42) IU/L ALT 19 (10-60) IU/L Alkaline Phosphatase 53 (42-121) IU/L Troponin I < 0.02 (0.00-0.02) ng/ml B-Natriuretic Peptide 13 (0-100) pg/ml Total Protein 7.5 (6.7-8.2) g/dl Albumin 4.2 (3.2-5.5) g/dl Globulin 3.3 Albumin/Globulin Ratio 1.27 Urine Color (YELLOW) Urine Appearance (CLEAR) Urine pH (5.0-9.0) Ur Specific [place] (1.005-1.030) Urine Protein (NEGATIVE) Urine Glucose (UA) (NEGATIVE) Urine Ketones (NEGATIVE) Urine Occult Blood (NEGATIVE) Urine Nitrite (NEGATIVE) Urine Bilirubin (NEGATIVE) Urine Urobilinogen (0.2-1.0) mg/dL Ur Leukocyte Esterase (NEGATIVE) Urine RBC /HPF Urine WBC (0-5/HPF) /HPF Ur Epithelial Cells (NOT SEEN) /HPF Urine Bacteria (0-FEW/HPF) /HPF 06/02/19 06/02/19 Range/Units 22:00 22:15 WBC (5.0-10.0) 10^3/uL RBC (4.6-6.2) 10^6/uL Hgb (14.0-18.0) g/dL Hct (40.0-54.0) % MCV (80-100) fL MCH (27.0-34.0) pg MCHC (33.0-35.0) g/dL Plt Count (150-450) 10^3/uL Neut % (Auto) (42.2-75.2) % Lymph % (Auto) (20.5-50.1) % [place] % (Auto) (2-8) % Eos % (Auto) (1.0-3.0) % Baso % (Auto) (0.0-1.0) % Sodium (135-145) mmol/L Potassium (3.6-5.0) mmol/L Chloride (101-111) mmol/L Carbon Dioxide (21.0-31.0) mmol/L Anion Gap BUN (7-18) mg/dL Creatinine (0.6-1.3) mg/dL Est Cr Clr Drug Dosing mL/min Estimated GFR (MDRD) BUN/Creatinine Ratio Glucose (74-105) mg/dL Lactic Acid 2.0 (0.5-2.0) mmol/L Calcium (8.4-10.2) mg/dl Total Bilirubin (0.2-1.0) mg/dL AST (10-42) IU/L ALT (10-60) IU/L Alkaline Phosphatase (42-121) IU/L Troponin I (0.00-0.02) ng/ml B-Natriuretic Peptide (0-100) pg/ml Total Protein (6.7-8.2) g/dl Albumin (3.2-5.5) g/dl Globulin Albumin/Globulin Ratio Urine Color Yellow (YELLOW) Urine Appearance Clear (CLEAR) Urine pH 6.5 (5.0-9.0) Ur Specific [place] 1.015 (1.005-1.030) Urine Protein 30 H (NEGATIVE) Urine Glucose (UA) 500 H (NEGATIVE) Urine Ketones Trace H (NEGATIVE) Urine Occult Blood Negative (NEGATIVE) Urine Nitrite Negative (NEGATIVE) Urine Bilirubin Negative (NEGATIVE) Urine Urobilinogen 0.2 (0.2-1.0) mg/dL Ur Leukocyte Esterase Negative (NEGATIVE) Urine RBC Not seen /HPF Urine WBC Not seen (0-5/HPF) /HPF Ur Epithelial Cells Rare (NOT SEEN) /HPF Urine Bacteria Rare (0-FEW/HPF) /HPF Meds: Medications Discontinued Medications Generic Name Dose Route Start Last Admin Trade Name Therese PRN Reason Stop Dose Admin Fentanyl 100 mcg 06/02/19 21:30 06/02/19 21:34 Sublimaze IVPUSH 06/02/19 21:31 100 mcg ONETIME ONE Administration - Re-Assessments/Exams Free Text/Narrative Re-Assessment/Exam: 06/02/19 22:[address] Diaz @ [facility] who kindly accepted pt. Departure - Departure Time of Disposition: 22:49 Disposition: DC/Tfer to Acute Hospital 02 Condition: Good Clinical Impression: Closed L3 vertebral fracture Qualifiers: Encounter type: initial encounter Fracture morphology: unspecified fracture morphology Qualified Code(s): S32.039A - Unspecified fracture of third lumbar vertebra, initial encounter for closed fracture - Discharge Information Forms: Interfacility Transfer EMTALA Sepsis Event Note - Evaluation Sepsis Screening Result: No Definite Risk - Focused Exam Vital Signs: Vital Signs Temp Pulse Resp BP Pulse Ox 06/02/19 21:46 92 15 210/94 H 93 L 06/02/19 21:31 36.2 C 97 19 208/91 H 94 L 06/02/19 20:00 36.2 C 96 15 163/67 H 96 Date Exam was Performed: 06/02/19 Time Exam was Performed: 22:49 - My Orders Last 24 Hours: My Active Orders 06/02/19 20:46 EKG 12 Lead [EKG Documentation Completion] [RC] STAT 06/02/19 20:47 Head wo Cont [CT] Urgent Lumbar Spine wo Cont [CT] Urgent Max Facial Sinus wo Cont [CT] Urgent 06/02/19 20:50 Chest 1V Frontal [CR] Urgent 06/02/19 20:56 Cervical Spine wo Cont [CT] Urgent 06/02/19 22:15 CULTURE BLOOD [BC] Stat 06/02/19 22:48 HYDROmorphone [Dilaudid] 1 mg IVPUSH ONETIME ONE - Assessment/Plan Last 24 Hours: My Active Orders 06/02/19 20:46 EKG 12 Lead [EKG Documentation Completion] [RC] STAT 06/02/19 20:47 Head wo Cont [CT] Urgent Lumbar Spine wo Cont [CT] Urgent Max Facial Sinus wo Cont [CT] Urgent 06/02/19 20:50 Chest 1V Frontal [CR] Urgent 06/02/19 20:56 Cervical Spine wo Cont [CT] Urgent 06/02/19 22:15 CULTURE BLOOD [BC] Stat 06/02/19 22:48 HYDROmorphone [Dilaudid] 1 mg IVPUSH ONETIME ONE
[2019-06-02 21:30] LABS: CHLORIDE,CL 95 mmol/L (101-111); SODIUM,NA 128 mmol/L (135-145)
[2019-06-02] MEDS ORDERED: fentaNYL 100 MCG/2 ML SDV IVPUSH ONE ×2 (21:30→23:20)
[2019-06-02] MEDS ORDERED: HYDROmorphone 1 MG/ML Syringe IVPUSH ONE (22:48)
[2019-06-02 23:01] VITALS: BP 178/82; PULSE 93
== END 2019-06-02 23:39 ==
LOC: DL.ED 19:08
DX: S32.039A Unspecified fracture of third lumbar vertebra, initial encounter for closed fracture (principal); I10 Essential (primary) hypertension; E11.9 Type 2 diabetes mellitus without complications; K21.9 Gastro-esophageal reflux disease without esophagitis; E78.00 Pure hypercholesterolemia, unspecified; M10.9 Gout, unspecified; F32.9 Major depressive disorder, single episode, unspecified; N40.0 Benign prostatic hyperplasia without lower urinary tract symptoms; Z79.899 Other long term (current) drug therapy; Z79.4 Long term (current) use of insulin; W19.XXXA Unspecified fall, initial encounter; Y92.009 Unspecified place in unspecified non-institutional (private) residence as the place of occurrence of the external cause
CPT/HCPCS: 36415; 70450; 70486; 71045; 72125; 72131; 80053; 81001; 83605; 83880; 84484; 85025; 87040; 93005; 96374; 96375; 96376; 99285; J1170; J3010

== ENCOUNTER 2019-09-04 13:41 | Inpatient (IN) | payer MEDICARE, BC ==
--- NOTE | 2019-09-04 14:25 | EDM.PDOC ---
ED HPI GENERAL MEDICAL PROBLEM - General Chief Complaint: Back Pain or Injury Stated Complaint: FELL A FEW TIMES,ALZHEIMERS Time Seen by Provider: 09/04/19 14:00 Source of Information: Reports: Patient, Family (Patient's ) History Limitations: Reports: Other (The patient has Alzheimers) - History of Present Illness INITIAL COMMENTS - FREE TEXT/NARRATIVE: This 79 yo male patient was brought to the ED by his due to numerous falls and back pain. The patient reports his back pain is worse today than yesterday. The patient's reports the patient fell yesterday and was seen at the [facility] (had x-rays of his lower back and hips with no new fractures). The patient fell again this morning at about 0600. Since the fall, the patient reports increased back pain and reduced mobility. The patient has had several surgeries on his lower back (last surgery was in May). Since the last surgery, the patient has been experiencing increased pain. The patient was placed in intermediate, but was take out of the intermediate on July 03. Since the patient came home, he has had increased difficulties ambulating and has had multiple falls. The patient has a history of chronic low back pain, Alzheimers, diabetes and gout. Onset: Unknown/Unsure Duration: Constant Location: Reports: Back (low back ) Severity: Moderate Improves with: Reports: None Worsens with: Reports: None Context: Reports: Other Associated Symptoms: Reports: No Other Symptoms Lower Back Pain Score (Numeric/FACES): 8 - Related Data Allergies Allergy/AdvReac Type Severity Reaction Status Date / Time No Known Allergies Allergy Verified 09/04/19 14:53 Home Meds: Home Meds Finasteride [Proscar] 5 mg PO BEDTIME 12/09/16 [History] Omeprazole 20 mg PO DAILY 12/09/16 [History] Pregabalin [Lyrica] 150 mg PO BID 12/09/16 [History] Simvastatin 20 mg PO BEDTIME 12/09/16 [History] Tamsulosin [Flomax] 0.4 mg PO BID 12/09/16 [History] allopurinoL [Allopurinol] 300 mg PO DAILY 12/09/16 [History] metFORMIN HCl [Metformin HCl] 1,000 mg PO BIDMEALS 12/09/16 [History] oxyCODONE HCl/Acetaminophen [Percocet 10-325 mg Tablet] 1 tab PO TID PRN [History] Acetaminophen [Tylenol Arthritis] 1,300 mg PO DAILY PRN 10/27/17 [History] DULoxetine HCl [Duloxetine HCl] 30 mg PO DAILY 10/27/17 [History] Docusate Sodium [Colace] 100 - 200 mg PO DAILY PRN 10/27/17 [History] Hydrocortisone [Hydrocortisone 2.5% Crm] 1 applic TOP TID PRN 10/27/17 [History] Multivitamins,Therapeutic [Thera] 1 tab PO DAILY 10/27/17 [History] Bumetanide 0.5 mg PO DAILY 09/04/19 [History] Insulin Detemir [Levemir Flextouch] 30 units SQ BEDTIME 09/04/19 [History] Insulin Detemir [Levemir Flextouch] 35 units SQ DAILY 09/04/19 [History] Insulin Lispro [Humalog] 4 units SQ TID 09/04/19 [History] carvediloL [Carvedilol] 12.5 mg PO BID 09/04/19 [History] Past Medical History HEENT History: Reports: Impaired Vision Cardiovascular History: Reports: High Cholesterol, Hypertension Gastrointestinal History: Reports: GERD Genitourinary History: Reports: BPH, Urinary Incontinence Other Genitourinary History: wears depends Musculoskeletal History: Reports: Back Pain, Chronic, Fracture, Gout Other Musculoskeletal History: Back surg. 2 knee replacements. Psychiatric History: Reports: Depression Endocrine/Metabolic History: Reports: Diabetes, Type II Dermatologic History: Reports: Other (See Below) Other Dermatologic History: itchy skin - Infectious Disease History Infectious Disease History: Reports: Measles, Other (See Below) Other Infectious Disease History: years ago - Past Surgical History Musculoskeletal Surgical History: Reports: Knee Replacement Other Musculoskeletal Surgeries/Procedures:: back surgery Social & Family History - Family History Family Medical History: Noncontributory - Caffeine Use Caffeine Use: Reports: Coffee, Soda ED ROS GENERAL - Review of Systems Review Of Systems: Comprehensive ROS is negative, except as noted in HPI. ED EXAM, GENERAL - Physical Exam Exam: See Below Exam Limited By: No Limitations General Appearance: Alert, WD/WN, Moderate Distress Eye Exam: Bilateral Eye: EOMI, Normal Inspection, PERRL Ears: Normal External Exam, Normal Canal, Hearing Grossly Normal, Normal TMs Nose: Normal Inspection, Normal Mucosa, No Blood Throat/Mouth: Normal Inspection, Normal Lips, Normal Teeth, Normal Gums, Normal Oropharynx, Normal Voice, No Airway Compromise Head: Atraumatic, Normocephalic Neck: Normal Inspection, Supple, Non-Tender, Full Range of Motion Respiratory/Chest: No Respiratory Distress, Lungs Clear, Normal Breath Sounds, No Accessory Muscle Use, Chest Non-Tender Cardiovascular: Normal Peripheral Pulses, Regular Rate, Rhythm, No Gallop, No Rub, Systolic Murmur GI/Abdominal: Normal Bowel Sounds, Soft, Non-Tender, No Organomegaly, No Distention, No Abnormal Bruit, No Mass (Male) Exam: Deferred Rectal (Males) Exam: Deferred Back Exam: Vertebral Tenderness (low back L4-L5) Extremities: Pedal Edema, Limited Range of Motion (due to low back pain) Neurological: Alert, Oriented, Abnormal Gait (Needed assistance x3 to move from wheelchair to bed) Psychiatric: Normal Affect, Normal Mood Skin Exam: Warm, Dry, Intact, Normal Color, No Rash Lymphatic: No Adenopathy Course - Vital Signs Last Recorded V/S: Last Vital Signs Temp 35.9 C L 09/04/19 13:47 Pulse 106 H 09/04/19 13:47 Resp 18 09/04/19 13:47 BP 163/74 H 09/04/19 13:47 Pulse Ox 97 09/04/19 13:47 - Orders/Labs/Meds Orders: Active Orders 24 hr Category Date Time Status Admission Diagnosis [ADT] Urgent ADT 09/04/19 16:13 Ordered Admission Status [Patient Status] [ADT] Routine ADT 09/04/19 16:13 Ordered EKG Documentation Completion [RC] URGENT Care 09/04/19 14:09 Active CULTURE URINE [RM] Urgent Lab 09/04/19 15:25 Received Labs: Laboratory Tests 09/04/19 09/04/19 09/04/19 Range/Units 14:22 14:22 14:22 WBC 8.4 (5.0-10.0) 10^3/uL RBC 3.52 L (4.6-6.2) 10^6/uL Hgb 10.8 L (14.0-18.0) g/dL Hct 32.2 L (40.0-54.0) % MCV 91.5 (80-100) fL MCH 30.7 (27.0-34.0) pg MCHC 33.5 (33.0-35.0) g/dL Plt Count 254 (150-450) 10^3/uL Neut % (Auto) 69.1 (42.2-75.2) % Lymph % (Auto) 19.1 L (20.5-50.1) % [place] % (Auto) 5.8 (2-8) % Eos % (Auto) 5.2 H (1.0-3.0) % Baso % (Auto) 0.8 (0.0-1.0) % Sodium 134 L (136-145) mmol/L Potassium 4.4 (3.5-5.1) mmol/L Chloride 96 L (98-107) mmol/L Carbon Dioxide 26 (21-32) mmol/L Anion Gap 16.4 H (7-13) mEq/L BUN 19 H (7-18) mg/dL Creatinine 1.30 (0.70-1.30) mg/dL Est Cr Clr Drug Dosing 45.32 mL/min Estimated GFR (MDRD) 53 BUN/Creatinine Ratio 14.6 (No establ ref range) Glucose 196 H (74-99) mg/dL Calcium 9.0 (8.5-10.1) mg/dL Total Bilirubin 0.4 (0.2-1.0) mg/dL AST 19 (15-37) U/L ALT 21 (16-63) U/L Alkaline Phosphatase 74 (46-116) U/L Troponin I < 0.017 (0.000-0.056) ng/mL B-Natriuretic Peptide 11 (0-100) pg/ml Total Protein 8.0 (6.4-8.2) g/dL Albumin 3.7 (3.4-5.0) g/dL Globulin 4.3 Albumin/Globulin Ratio 0.9 Urine Color (YELLOW) Urine Appearance (CLEAR) Urine pH (5.0-9.0) Ur Specific [place] (1.005-1.030) Urine Protein (NEGATIVE) Urine Glucose (UA) (NEGATIVE) Urine Ketones (NEGATIVE) Urine Occult Blood (NEGATIVE) Urine Nitrite (NEGATIVE) Urine Bilirubin (NEGATIVE) Urine Urobilinogen (0.2-1.0) mg/dL Ur Leukocyte Esterase (NEGATIVE) Urine RBC /HPF Urine WBC (0-5/HPF) /HPF Ur Epithelial Cells (NOT SEEN) /HPF Urine Bacteria (0-FEW/HPF) /HPF 09/04/19 Range/Units 15:25 WBC (5.0-10.0) 10^3/uL RBC (4.6-6.2) 10^6/uL Hgb (14.0-18.0) g/dL Hct (40.0-54.0) % MCV (80-100) fL MCH (27.0-34.0) pg MCHC (33.0-35.0) g/dL Plt Count (150-450) 10^3/uL Neut % (Auto) (42.2-75.2) % Lymph % (Auto) (20.5-50.1) % [place] % (Auto) (2-8) % Eos % (Auto) (1.0-3.0) % Baso % (Auto) (0.0-1.0) % Sodium (136-145) mmol/L Potassium (3.5-5.1) mmol/L Chloride (98-107) mmol/L Carbon Dioxide (21-32) mmol/L Anion Gap (7-13) mEq/L BUN (7-18) mg/dL Creatinine (0.70-1.30) mg/dL Est Cr Clr Drug Dosing mL/min Estimated GFR (MDRD) BUN/Creatinine Ratio (No establ ref range) Glucose (74-99) mg/dL Calcium (8.5-10.1) mg/dL Total Bilirubin (0.2-1.0) mg/dL AST (15-37) U/L ALT (16-63) U/L Alkaline Phosphatase (46-116) U/L Troponin I (0.000-0.056) ng/mL B-Natriuretic Peptide (0-100) pg/ml Total Protein (6.4-8.2) g/dL Albumin (3.4-5.0) g/dL Globulin Albumin/Globulin Ratio Urine Color Yellow (YELLOW) Urine Appearance Slightly cloudy (CLEAR) Urine pH 6.0 (5.0-9.0) Ur Specific [place] 1.015 (1.005-1.030) Urine Protein Negative (NEGATIVE) Urine Glucose (UA) Negative (NEGATIVE) Urine Ketones Negative (NEGATIVE) Urine Occult Blood Trace-lysed H (NEGATIVE) Urine Nitrite Positive H (NEGATIVE) Urine Bilirubin Negative (NEGATIVE) Urine Urobilinogen 0.2 (0.2-1.0) mg/dL Ur Leukocyte Esterase Small H (NEGATIVE) Urine RBC 0-5 /HPF Urine WBC 30-40 H (0-5/HPF) /HPF Ur Epithelial Cells Rare (NOT SEEN) /HPF Urine Bacteria Many H (0-FEW/HPF) /HPF Departure - Departure Time of Disposition: 16:15 Disposition: Admitted As Inpatient 65 Condition: Fair Clinical Impression: Altered mental status Qualifiers: Altered mental status type: unspecified Qualified Code(s): R41.82 - Altered mental status, unspecified UTI (urinary tract infection) Qualifiers: Urinary tract infection type: site unspecified Hematuria presence: without hematuria Qualified Code(s): N39.0 - Urinary tract infection, site not specified Chronic back pain Qualifiers: Back pain location: low back pain Back pain laterality: unspecified Sciatica presence: with sciatica Sciatica laterality: sciatica of right side Qualified Code(s): M54.41 - Lumbago with sciatica, right side; G89.29 - Other chronic pain - Discharge Information *PRESCRIPTION DRUG MONITORING PROGRAM REVIEWED*: Not Applicable *COPY OF PRESCRIPTION DRUG MONITORING REPORT IN PATIENT PREMA: Not Applicable Forms: ED Department Discharge Care Plan Goals: Discussed the patient's history, examination, lab, x-ray results and CT results with Dr. Guerrero. Dr Guerrero accepted for continued evaluation and management as an inpatient at [facility] in [place]. Sepsis Event Note - Evaluation Sepsis Screening Result: No Definite Risk - Focused Exam Vital Signs: Vital Signs Temp Pulse Resp BP Pulse Ox 09/04/19 13:47 35.9 C L 106 H 18 163/74 H 97 Date Exam was Performed: 09/04/19 Time Exam was Performed: 16:15 - My Orders Last 24 Hours: My Active Orders 09/04/19 14:09 EKG Documentation Completion [RC] URGENT 09/04/19 15:25 CULTURE URINE [RM] Urgent 09/04/19 16:13 Admission Diagnosis [ADT] Urgent Admission Status [Patient Status] [ADT] Routine - Assessment/Plan Last 24 Hours: My Active Orders 09/04/19 14:09 EKG Documentation Completion [RC] URGENT 09/04/19 15:25 CULTURE URINE [RM] Urgent 09/04/19 16:13 Admission Diagnosis [ADT] Urgent Admission Status [Patient Status] [ADT] Routine
[2019-09-04 14:57] LABS: ANION GAP 16.4 mEq/L (7-13); CHLORIDE,CL 96 mmol/L (98-107); SODIUM,NA 134 mmol/L (136-145)
--- NOTE | 2019-09-04 15:03 | CR ---
EXAMINATION: Chest 1V Frontal SEX: Male AGE: 79 years CLINICAL HISTORY: 79-year-old confused male with frequent falls and low back pain. INTERPRETATION: No acute new cardiopulmonary abnormality identified in the interval since 02 June 2019 exam. Old healed fracture deformities both clavicles. External bias binding folder leads. Despite less than optimal inspiratory effort no sign of heart failure lung mass or new focal lobar pneumonia. No atelectasis/collapse. No pneumothorax or pneumomediastinum.
--- NOTE | 2019-09-04 15:14 | CT ---
EXAMINATION: Lumbar Spine wo Cont SEX: Male AGE: 79 years CLINICAL HISTORY: 79-year-old male complaining of low back pain (frequent falls). "Acute fracture L3 vertebral body with partial distraction" reported on CT scan 02 June 2019. Follow-up evaluation please. Scan technique: Volume acquisition of data emergency unenhanced CT scan of the lumbar spine obtained with patient lying supine on the Siemens multislice scanner [place], [place]. All data archived in the PACS system for storage, reformatting axial/sagittal/coronal planes and study. INTERPRETATION: Abnormal but.... 1. Unchanged except for new evidence of spinal fusion posteriorly i.e. new bilateral [place] rods now with bolts anchored posteriorly in the L3/L4 pedicles bilaterally (earlier anchored proximally and posteriorly, L1/L2 vertebra) since 02 June exam. 2. 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 (Fracture L3 unchanged) 3. *No new lower thoracic or lumbar fracture/dislocation i.e. no new signs of instability or spondylolisthesis. 4. Normal caliber aortoiliac vessels. No retroperitoneal hematoma. Kidneys unremarkable.
[2019-09-04] MEDS ORDERED: Acetaminophen 325 MG Tab PO PRN (16:39)
[2019-09-04] MEDS ORDERED: cefTRIAXone 1 GM in Sodium Chloride 0.9% 50 ML IV SCH (16:45)
--- NOTE | 2019-09-04 16:53 | PCM.PN ---
- General Info Date of Service: 09/04/19 Admission Dx/Problem (Free Text): acute encephalopathy Subjective Update: Mr. Hudson is an 79 year old male with past medical history significant for chronic kidney disease, diabetes mellitus, hyperlipidemia, dementia, hypertension who presented to the hospital with frequent falls. Patient was seen yesterday by his primary care provider and he underwent surgery of the right hip and lower spine. No fractures were seen. Patient fell again, when he called his primary care provider who recommended that patient is brought to the emergency room. In the ED, patient was afebrile, hemodynamically stable. Lab was remarkable for sodium 134, anion gap of 16.4, and 19 creatinine 1.3. UA was positive for nitrites and leukocyte esterase. Chest x-ray showed no evidence of acute abnormalities and CT spine showed presence of hardware but otherwise no evidence of fractures. On interview, said that patient has been getting weaker the past few days, is more confused than usual. On interview, patient said that he has some burning with urination. - Review of Systems Systems Review Comment:: cannot be obtained reliably due to dementia. obtained from records and . - Patient Data Vitals - Most Recent: Last Vital Signs Temp 35.9 C L 09/04/19 13:47 Pulse 106 H 09/04/19 13:47 Resp 18 09/04/19 13:47 BP 163/74 H 09/04/19 13:47 Pulse Ox 97 09/04/19 13:47 Weight - Most Recent: 104.78 kg Lab Results Last 24 Hours: Laboratory Results - last 24 hr 09/04/19 09/04/19 09/04/19 Range/Units 14:22 14:22 14:22 WBC 8.4 (5.0-10.0) 10^3/uL RBC 3.52 L (4.6-6.2) 10^6/uL Hgb 10.8 L (14.0-18.0) g/dL Hct 32.2 L (40.0-54.0) % MCV 91.5 (80-100) fL MCH 30.7 (27.0-34.0) pg MCHC 33.5 (33.0-35.0) g/dL Plt Count 254 (150-450) 10^3/uL Neut % (Auto) 69.1 (42.2-75.2) % Lymph % (Auto) 19.1 L (20.5-50.1) % [place] % (Auto) 5.8 (2-8) % Eos % (Auto) 5.2 H (1.0-3.0) % Baso % (Auto) 0.8 (0.0-1.0) % Sodium 134 L (136-145) mmol/L Potassium 4.4 (3.5-5.1) mmol/L Chloride 96 L (98-107) mmol/L Carbon Dioxide 26 (21-32) mmol/L Anion Gap 16.4 H (7-13) mEq/L BUN 19 H (7-18) mg/dL Creatinine 1.30 (0.70-1.30) mg/dL Est Cr Clr Drug Dosing 45.32 mL/min Estimated GFR (MDRD) 53 BUN/Creatinine Ratio 14.6 (No establ ref range) Glucose 196 H (74-99) mg/dL Calcium 9.0 (8.5-10.1) mg/dL Total Bilirubin 0.4 (0.2-1.0) mg/dL AST 19 (15-37) U/L ALT 21 (16-63) U/L Alkaline Phosphatase 74 (46-116) U/L Troponin I < 0.017 (0.000-0.056) ng/mL B-Natriuretic Peptide 11 (0-100) pg/ml Total Protein 8.0 (6.4-8.2) g/dL Albumin 3.7 (3.4-5.0) g/dL Globulin 4.3 Albumin/Globulin Ratio 0.9 Urine Color (YELLOW) Urine Appearance (CLEAR) Urine pH (5.0-9.0) Ur Specific [place] (1.005-1.030) Urine Protein (NEGATIVE) Urine Glucose (UA) (NEGATIVE) Urine Ketones (NEGATIVE) Urine Occult Blood (NEGATIVE) Urine Nitrite (NEGATIVE) Urine Bilirubin (NEGATIVE) Urine Urobilinogen (0.2-1.0) mg/dL Ur Leukocyte Esterase (NEGATIVE) Urine RBC /HPF Urine WBC (0-5/HPF) /HPF Ur Epithelial Cells (NOT SEEN) /HPF Urine Bacteria (0-FEW/HPF) /HPF 04/14/20 Range/Units 15:25 WBC (5.0-10.0) 10^3/uL RBC (4.6-6.2) 10^6/uL Hgb (14.0-18.0) g/dL Hct (40.0-54.0) % MCV (80-100) fL MCH (27.0-34.0) pg MCHC (33.0-35.0) g/dL Plt Count (150-450) 10^3/uL Neut % (Auto) (42.2-75.2) % Lymph % (Auto) (20.5-50.1) % [place] % (Auto) (2-8) % Eos % (Auto) (1.0-3.0) % Baso % (Auto) (0.0-1.0) % Sodium (136-145) mmol/L Potassium (3.5-5.1) mmol/L Chloride (98-107) mmol/L Carbon Dioxide (21-32) mmol/L Anion Gap (7-13) mEq/L BUN (7-18) mg/dL Creatinine (0.70-1.30) mg/dL Est Cr Clr Drug Dosing mL/min Estimated GFR (MDRD) BUN/Creatinine Ratio (No establ ref range) Glucose (74-99) mg/dL Calcium (8.5-10.1) mg/dL Total Bilirubin (0.2-1.0) mg/dL AST (15-37) U/L ALT (16-63) U/L Alkaline Phosphatase (46-116) U/L Troponin I (0.000-0.056) ng/mL B-Natriuretic Peptide (0-100) pg/ml Total Protein (6.4-8.2) g/dL Albumin (3.4-5.0) g/dL Globulin Albumin/Globulin Ratio Urine Color Yellow (YELLOW) Urine Appearance Slightly cloudy (CLEAR) Urine pH 6.0 (5.0-9.0) Ur Specific [place] 1.015 (1.005-1.030) Urine Protein Negative (NEGATIVE) Urine Glucose (UA) Negative (NEGATIVE) Urine Ketones Negative (NEGATIVE) Urine Occult Blood Trace-lysed H (NEGATIVE) Urine Nitrite Positive H (NEGATIVE) Urine Bilirubin Negative (NEGATIVE) Urine Urobilinogen 0.2 (0.2-1.0) mg/dL Ur Leukocyte Esterase Small H (NEGATIVE) Urine RBC 0-5 /HPF Urine WBC 30-40 H (0-5/HPF) /HPF Ur Epithelial Cells Rare (NOT SEEN) /HPF Urine Bacteria Many H (0-FEW/HPF) /HPF Med Orders - Current: Current Medications Acetaminophen (Tylenol) 650 mg PO Q4H PRN PRN Reason: Pain (Mild 1-3)/fever Allopurinol (Zyloprim) 300 mg PO DAILY [facility] Bumetanide (Bumex) 0.5 mg PO DAILY [facility] Duloxetine HCl (Cymbalta) 30 mg PO DAILY [facility] Finasteride (Proscar) 5 mg PO BEDTIME [facility] Heparin Sodium (Porcine) (Heparin Sodium) 5,000 units SUBCUT Q8HR [facility] Ceftriaxone Sodium 1 gm/ (Sodium Chloride) 50 mls @ 100 mls/hr IV Q24H [facility] Non-Formulary Medication (Acetaminophen/Oxycodone) 1 tab PO TID PRN PRN Reason: Pain Non-Formulary Medication (Carvedilol [Carvedilol]) 12.5 mg PO BID [facility] Non-Formulary Medication (Insulin Detemir) 30 units SQ BEDTIME [facility] Non-Formulary Medication (Insulin Detemir) 35 units SQ DAILY [facility] Non-Formulary Medication (Insulin Lispro) 4 units SQ TID [facility] Omeprazole (Omeprazole) 20 mg PO DAILY [facility] Pregabalin (Lyrica) 150 mg PO BID [facility] - Exam General: Cooperative, No Acute Distress Lungs: Clear to Auscultation, Normal Respiratory Effort GI/Abdominal Exam: Normal Bowel Sounds, Soft, Non-Tender, No Distention Extremities: Normal Inspection, No Pedal Edema Skin: Warm, Dry, Intact, Other (Venous stasis changes over bilateral shins) Neurological: No New Focal Deficit Sepsis Event Note - Evaluation Sepsis Screening Result: No Definite Risk - Focused Exam Vital Signs: Vital Signs Temp Pulse Resp BP Pulse Ox 09/04/19 13:47 35.9 C L 106 H 18 163/74 H 97 Date Exam was Performed: 09/04/19 Time Exam was Performed: 17:00 - Problem List Review Problem List Initiated/Reviewed/Updated: Yes - My Orders Last 24 Hours: My Active Orders 09/04/19 16:39 Up With Assistance [RC] ASDIRECTED OT Evaluation and Treatment [CONS] Routine PT Evaluation and Treatment [CONS] Routine Acetaminophen [Tylenol] 650 mg PO Q4H PRN Resuscitation Status Routine 09/04/19 16:40 Oxygen Therapy [RC] PRN VTE/DVT Education [RC] PER UNIT ROUTINE Vital Signs [RC] Q4H 09/04/19 16:44 Acetaminophen/oxyCODONE 1 tab PO TID PRN 09/04/19 16:45 cefTRIAXone [Rocephin] 1 gm Sodium Chloride 0.9% [Normal Saline] 50 ml IV Q24H 09/04/19 21:00 Finasteride [Proscar] 5 mg PO BEDTIME Insulin Detemir 30 units SQ BEDTIME Insulin Lispro 4 units SQ TID Pregabalin [Lyrica] 150 mg PO BID Simvastatin [Simvastatin] 20 mg PO BEDTIME Tamsulosin [Flomax] 0.4 mg PO BID carvediloL [Carvedilol] 12.5 mg PO BID 09/04/19 22:00 Heparin Sodium 5,000 units SUBCUT Q8HR 09/04/19 Dinner Consistent Carbohydrate Diet [DIET] 09/05/19 05:11 BASIC METABOLIC PANEL,BMP [CHEM] AM CBC WITH AUTO DIFF [HEME] AM 09/05/19 09:00 Bumetanide [Bumex] 0.5 mg PO DAILY DULoxetine [Cymbalta] 30 mg PO DAILY Insulin Detemir 35 units SQ DAILY Omeprazole 20 mg PO DAILY allopurinoL [Zyloprim] 300 mg PO DAILY 09/06/19 05:11 BASIC METABOLIC PANEL,BMP [CHEM] AM CBC WITH AUTO DIFF [HEME] AM 09/07/19 05:11 BASIC METABOLIC PANEL,BMP [CHEM] AM CBC WITH AUTO DIFF [HEME] AM - Plan Plan:: Acute encephalopathy with underlying dementia/recurrent falls Could be triggered by UTI We'll start patient on ceftriaxone PT/OT Possible UTI Awaiting urine culture Start patient on ceftriaxone DM 2 Continue home insulin Chronic back pain Restart home meds Hypertension Restart home meds Gout Allopurinol CKD avoid nephrotoxic agents Hyperlipidemia statin DVT prophylaxis Heparin
[2019-09-04] MEDS ORDERED: cefTRIAXone 1 GM Vial IVPUSH SCH (17:00)
--- NOTE | 2019-09-04 17:03 | PCM.HP ---
H&P History of Present Illness - General Date of Service: 09/04/19 Admit Problem/Dx: acute encephalopathy - History of Present Illness Initial Comments - Free Text/Narative: Mr. Hudson is an 79 year old male with past medical history significant for chronic kidney disease, diabetes mellitus, hyperlipidemia, dementia, hypertension who presented to the hospital with frequent falls. Patient was seen yesterday by his primary care provider and he underwent surgery of the right hip and lower spine. No fractures were seen. Patient fell again, when he called his primary care provider who recommended that patient is brought to the emergency room. In the ED, patient was afebrile, hemodynamically stable. Lab was remarkable for sodium 134, anion gap of 16.4, and 19 creatinine 1.3. UA was positive for nitrites and leukocyte esterase. Chest x-ray showed no evidence of acute abnormalities and CT spine showed presence of hardware but otherwise no evidence of fractures. On interview, said that patient has been getting weaker the past few days, is more confused than usual. On interview, patient said that he has some burning with urination. Lower Back Pain Score (Numeric/FACES): 8 - Related Data Allergies/Adverse Reactions: Allergies Allergy/AdvReac Type Severity Reaction Status Date / Time No Known Allergies Allergy Verified 09/04/19 14:53 Home Medications: Home Meds Finasteride [Proscar] 5 mg PO BEDTIME 12/09/16 [History] Omeprazole 20 mg PO DAILY 12/09/16 [History] Pregabalin [Lyrica] 150 mg PO BID 12/09/16 [History] Simvastatin 20 mg PO BEDTIME 12/09/16 [History] Tamsulosin [Flomax] 0.4 mg PO BID 12/09/16 [History] allopurinoL [Allopurinol] 300 mg PO DAILY 12/09/16 [History] metFORMIN HCl [Metformin HCl] 1,000 mg PO BIDMEALS 12/09/16 [History] oxyCODONE HCl/Acetaminophen [Percocet 10-325 mg Tablet] 1 tab PO TID PRN [History] Acetaminophen [Tylenol Arthritis] 1,300 mg PO DAILY PRN 10/27/17 [History] DULoxetine HCl [Duloxetine HCl] 30 mg PO DAILY 10/27/17 [History] Docusate Sodium [Colace] 100 - 200 mg PO DAILY PRN 10/27/17 [History] Hydrocortisone [Hydrocortisone 2.5% Crm] 1 applic TOP TID PRN 10/27/17 [History] Multivitamins,Therapeutic [Thera] 1 tab PO DAILY 10/27/17 [History] Bumetanide 0.5 mg PO DAILY 09/04/19 [History] Insulin Detemir [Levemir Flextouch] 30 units SQ BEDTIME 09/04/19 [History] Insulin Detemir [Levemir Flextouch] 35 units SQ DAILY 09/04/19 [History] Insulin Lispro [Humalog] 4 units SQ TID 09/04/19 [History] carvediloL [Carvedilol] 12.5 mg PO BID 09/04/19 [History] Past Medical History HEENT History: Reports: Impaired Vision Cardiovascular History: Reports: High Cholesterol, Hypertension Gastrointestinal History: Reports: GERD Genitourinary History: Reports: BPH, Urinary Incontinence Other Genitourinary History: wears depends Musculoskeletal History: Reports: Back Pain, Chronic, Fracture, Gout Other Musculoskeletal History: Back surg. 2 knee replacements. Psychiatric History: Reports: Depression Endocrine/Metabolic History: Reports: Diabetes, Type II Dermatologic History: Reports: Other (See Below) Other Dermatologic History: itchy skin - Infectious Disease History Infectious Disease History: Reports: Measles, Other (See Below) Other Infectious Disease History: years ago - Past Surgical History Musculoskeletal Surgical History: Reports: Knee Replacement Other Musculoskeletal Surgeries/Procedures:: back surgery Social & Family History - Family History Family Medical History: Noncontributory - Tobacco Use Smoking Status *Q: Former Smoker Used Tobacco, but Quit: Yes Month/Year Tobacco Last Used: 40 years ago - Caffeine Use Caffeine Use: Reports: Coffee, Soda H&P Review of Systems - Review of Systems: Review Of Systems: Unable To Obtain Reason Not Obtained: dementia. history obtained from old records and . Exam - Exam Exam: See Below - Vital Signs Vital Signs: Last Vital Signs Temp 35.9 C L 09/04/19 13:47 Pulse 106 H 09/04/19 13:47 Resp 18 09/04/19 13:47 BP 163/74 H 09/04/19 13:47 Pulse Ox 97 09/04/19 13:47 Weight: 104.78 kg - Exam General: Cooperative Lungs: Clear to Auscultation, Normal Respiratory Effort Cardiovascular: Regular Rate, Regular Rhythm GI/Abdominal Exam: Normal Bowel Sounds, Soft, Non-Tender, No Distention Extremities: Normal Inspection, Pedal Edema Skin: Warm, Dry, Intact, Other (venous stasis changes to legs) Psychiatric: Alert, Normal Affect - Patient Data Lab Results Last 24 hrs: Laboratory Results - last 24 hr 09/04/19 09/04/19 09/04/19 Range/Units 14:22 14:22 14:22 WBC 8.4 (5.0-10.0) 10^3/uL RBC 3.52 L (4.6-6.2) 10^6/uL Hgb 10.8 L (14.0-18.0) g/dL Hct 32.2 L (40.0-54.0) % MCV 91.5 (80-100) fL MCH 30.7 (27.0-34.0) pg MCHC 33.5 (33.0-35.0) g/dL Plt Count 254 (150-450) 10^3/uL Neut % (Auto) 69.1 (42.2-75.2) % Lymph % (Auto) 19.1 L (20.5-50.1) % [place] % (Auto) 5.8 (2-8) % Eos % (Auto) 5.2 H (1.0-3.0) % Baso % (Auto) 0.8 (0.0-1.0) % Sodium 134 L (136-145) mmol/L Potassium 4.4 (3.5-5.1) mmol/L Chloride 96 L (98-107) mmol/L Carbon Dioxide 26 (21-32) mmol/L Anion Gap 16.4 H (7-13) mEq/L BUN 19 H (7-18) mg/dL Creatinine 1.30 (0.70-1.30) mg/dL Est Cr Clr Drug Dosing 45.32 mL/min Estimated GFR (MDRD) 53 BUN/Creatinine Ratio 14.6 (No establ ref range) Glucose 196 H (74-99) mg/dL Calcium 9.0 (8.5-10.1) mg/dL Total Bilirubin 0.4 (0.2-1.0) mg/dL AST 19 (15-37) U/L ALT 21 (16-63) U/L Alkaline Phosphatase 74 (46-116) U/L Troponin I < 0.017 (0.000-0.056) ng/mL B-Natriuretic Peptide 11 (0-100) pg/ml Total Protein 8.0 (6.4-8.2) g/dL Albumin 3.7 (3.4-5.0) g/dL Globulin 4.3 Albumin/Globulin Ratio 0.9 Urine Color (YELLOW) Urine Appearance (CLEAR) Urine pH (5.0-9.0) Ur Specific [place] (1.005-1.030) Urine Protein (NEGATIVE) Urine Glucose (UA) (NEGATIVE) Urine Ketones (NEGATIVE) Urine Occult Blood (NEGATIVE) Urine Nitrite (NEGATIVE) Urine Bilirubin (NEGATIVE) Urine Urobilinogen (0.2-1.0) mg/dL Ur Leukocyte Esterase (NEGATIVE) Urine RBC /HPF Urine WBC (0-5/HPF) /HPF Ur Epithelial Cells (NOT SEEN) /HPF Urine Bacteria (0-FEW/HPF) /HPF / Range/Units 15:25 WBC (5.0-10.0) 10^3/uL RBC (4.6-6.2) 10^6/uL Hgb (14.0-18.0) g/dL Hct (40.0-54.0) % MCV (80-100) fL MCH (27.0-34.0) pg MCHC (33.0-35.0) g/dL Plt Count (150-450) 10^3/uL Neut % (Auto) (42.2-75.2) % Lymph % (Auto) (20.5-50.1) % [place] % (Auto) (2-8) % Eos % (Auto) (1.0-3.0) % Baso % (Auto) (0.0-1.0) % Sodium (136-145) mmol/L Potassium (3.5-5.1) mmol/L Chloride (98-107) mmol/L Carbon Dioxide (21-32) mmol/L Anion Gap (7-13) mEq/L BUN (7-18) mg/dL Creatinine (0.70-1.30) mg/dL Est Cr Clr Drug Dosing mL/min Estimated GFR (MDRD) BUN/Creatinine Ratio (No establ ref range) Glucose (74-99) mg/dL Calcium (8.5-10.1) mg/dL Total Bilirubin (0.2-1.0) mg/dL AST (15-37) U/L ALT (16-63) U/L Alkaline Phosphatase (46-116) U/L Troponin I (0.000-0.056) ng/mL B-Natriuretic Peptide (0-100) pg/ml Total Protein (6.4-8.2) g/dL Albumin (3.4-5.0) g/dL Globulin Albumin/Globulin Ratio Urine Color Yellow (YELLOW) Urine Appearance Slightly cloudy (CLEAR) Urine pH 6.0 (5.0-9.0) Ur Specific [place] 1.015 (1.005-1.030) Urine Protein Negative (NEGATIVE) Urine Glucose (UA) Negative (NEGATIVE) Urine Ketones Negative (NEGATIVE) Urine Occult Blood Trace-lysed H (NEGATIVE) Urine Nitrite Positive H (NEGATIVE) Urine Bilirubin Negative (NEGATIVE) Urine Urobilinogen 0.2 (0.2-1.0) mg/dL Ur Leukocyte Esterase Small H (NEGATIVE) Urine RBC 0-5 /HPF Urine WBC 30-40 H (0-5/HPF) /HPF Ur Epithelial Cells Rare (NOT SEEN) /HPF Urine Bacteria Many H (0-FEW/HPF) /HPF Result Diagrams: 09/04/19 14:22 09/04/19 14:22 Problem List Initiated/Reviewed/Updated: Yes Orders Last 24hrs: Active Orders 24 hr Category Date Time Status Admission Diagnosis [ADT] Urgent ADT 09/04/19 16:13 Ordered Admission Status [Patient Status] [ADT] Routine ADT 09/04/19 16:13 Active Oxygen Therapy [RC] PRN Care 09/04/19 16:40 Ordered Up With Assistance [RC] ASDIRECTED Care 09/04/19 16:39 Ordered VTE/DVT Education [RC] PER UNIT ROUTINE Care 09/04/19 16:40 Ordered Vital Signs [RC] Q4H Care 09/04/19 16:40 Ordered OT Evaluation and Treatment [CONS] Routine Cons 09/04/19 16:39 Ordered PT Evaluation and Treatment [CONS] Routine Cons 09/04/19 16:39 Ordered Consistent Carbohydrate Diet [DIET] Diet 09/04/19 Dinner Ordered BASIC METABOLIC PANEL,BMP [CHEM] AM Lab 09/05/19 05:11 Ordered BASIC METABOLIC PANEL,BMP [CHEM] AM Lab 09/06/19 05:11 Ordered BASIC METABOLIC PANEL,BMP [CHEM] AM Lab 09/07/19 05:11 Ordered CBC WITH AUTO DIFF [HEME] AM Lab 09/05/19 05:11 Ordered CBC WITH AUTO DIFF [HEME] AM Lab 09/06/19 05:11 Ordered CBC WITH AUTO DIFF [HEME] AM Lab 09/07/19 05:11 Ordered CULTURE URINE [RM] Urgent Lab 09/04/19 15:25 Received Acetaminophen [Tylenol] Med 09/04/19 16:39 Ordered 650 mg PO Q4H PRN Acetaminophen/oxyCODONE Med 09/04/19 16:44 Ordered 1 tab PO TID PRN Bumetanide [Bumex] Med 09/05/19 09:00 Ordered 0.5 mg PO DAILY DULoxetine [Cymbalta] Med 09/05/19 09:00 Ordered 30 mg PO DAILY Finasteride [Proscar] Med 09/04/19 21:00 Ordered 5 mg PO BEDTIME Heparin Sodium Med 09/04/19 22:00 Ordered 5,000 units SUBCUT Q8HR Insulin Detemir Med 09/04/19 21:00 Ordered 30 units SQ BEDTIME Insulin Detemir Med 09/05/19 09:00 Ordered 35 units SQ DAILY Insulin Lispro Med 09/04/19 21:00 Ordered 4 units SQ TID Omeprazole Med 09/05/19 09:00 Ordered 20 mg PO DAILY Pregabalin [Lyrica] Med 09/04/19 21:00 Ordered 150 mg PO BID Simvastatin [Simvastatin] Med 09/04/19 21:00 Ordered 20 mg PO BEDTIME Tamsulosin [Flomax] Med 09/04/19 21:00 Ordered 0.4 mg PO BID allopurinoL [Zyloprim] Med 09/05/19 09:00 Ordered 300 mg PO DAILY carvediloL [Carvedilol] Med 09/04/19 21:00 Ordered 12.5 mg PO BID cefTRIAXone [Rocephin] Med 09/04/19 17:00 Active 1 gm IVPUSH Q24H Resuscitation Status Routine Resus Stat 09/04/19 16:39 Ordered Medication Orders Acetaminophen (Tylenol) 650 mg PO Q4H PRN PRN Reason: Pain (Mild 1-3)/fever Allopurinol (Zyloprim) 300 mg PO DAILY [facility] Bumetanide (Bumex) 0.5 mg PO DAILY [facility] Carvedilol (Coreg) 12.5 mg PO BID [facility] Ceftriaxone Sodium (Rocephin) 1 gm IVPUSH Q24H [facility] Duloxetine HCl (Cymbalta) 30 mg PO DAILY [facility] Finasteride (Proscar) 5 mg PO BEDTIME [facility] Heparin Sodium (Porcine) (Heparin Sodium) 5,000 units SUBCUT Q8HR [facility] Insulin Glargine (Lantus) 30 unit SUBCUT BEDTIME [facility] Insulin Glargine (Lantus) 35 unit SUBCUT DAILY [facility] Insulin Human Lispro (Humalog) 4 unit SUBCUT TID [facility] Non-Formulary Medication (Acetaminophen/Oxycodone) 1 tab PO TID PRN PRN Reason: Pain Omeprazole (Omeprazole) 20 mg PO ACBREAKFAST [facility] Pregabalin (Lyrica) 150 mg PO BID [facility] Simvastatin (Zocor) 20 mg PO BEDTIME [facility] Tamsulosin HCl (Flomax) 0.4 mg PO BID [facility] Assessment/Plan Comment:: Acute encephalopathy with underlying dementia/recurrent falls Could be triggered by UTI We'll start patient on ceftriaxone PT/OT Possible UTI Awaiting urine culture Start patient on ceftriaxone DM 2 Continue home insulin Chronic back pain Restart home meds Hypertension Restart home meds Gout Allopurinol CKD avoid nephrotoxic agents Hyperlipidemia statin DVT prophylaxis Heparin
[2019-09-04] MEDS ORDERED: Water For Injection, Sterile 20 ML ONE (17:07)
[2019-09-04] MEDS: Insulin Lispro 100 Units/ML 3 ML Vial SUBCUT SCH (17:39)
[2019-09-04] MEDS: Tamsulosin 0.4 MG Cap.ER PO SCH (22:10)
[2019-09-04] MEDS: Finasteride 5 MG Tab PO SCH (22:10)
[2019-09-04] MEDS: Simvastatin 40 MG Tab PO SCH (22:11)
[2019-09-04] MEDS: Carvedilol 25 MG Tab PO SCH (22:14)
[2019-09-04] MEDS: Ciprofloxacin 500 MG Tab PO SCH (22:14)
[2019-09-04] MEDS: Heparin Sodium 5,000 Units/ML Vial SUBCUT SCH (22:15)
[2019-09-04] MEDS: Insulin Glarg,Human.Rec.Analog 100 Unit/ML SUBCUT SCH (22:16)
[2019-09-04] MEDS: Acetaminophen/oxyCODONE 325-5 MG Tab PO PRN (23:31)
[2019-09-04] MEDS: oxyCODONE 5 MG Tab PO PRN (23:33)
[2019-09-05] MEDS: Heparin Sodium 5,000 Units/ML Vial SUBCUT SCH ×3 (06:49→21:37)
[2019-09-05] MEDS: Omeprazole 20 MG Cap.CR PO SCH (06:49)
[2019-09-05 07:28] LABS: CHLORIDE,CL 97 mmol/L (98-107); SODIUM,NA 134 mmol/L (136-145)
[2019-09-05] MEDS: Insulin Lispro 100 Units/ML 3 ML Vial SUBCUT SCH ×3 (09:02→18:08)
[2019-09-05] MEDS: Bumetanide 1 MG Tab PO SCH (09:04)
[2019-09-05] MEDS: Ciprofloxacin 500 MG Tab PO SCH ×2 (09:05→21:11)
[2019-09-05] MEDS: Carvedilol 25 MG Tab PO SCH ×2 (09:06→21:09)
[2019-09-05] MEDS: Tamsulosin 0.4 MG Cap.ER PO SCH ×2 (09:07→21:11)
[2019-09-05] MEDS: DULoxetine 30 MG Cap PO SCH (09:07)
[2019-09-05] MEDS: Insulin Glarg,Human.Rec.Analog 100 Unit/ML SUBCUT SCH ×2 (09:09→21:35)
[2019-09-05] MEDS: Allopurinol 300 MG Tab PO SCH (09:10)
[2019-09-05] MEDS: oxyCODONE 5 MG Tab PO PRN ×2 (09:10→21:35)
[2019-09-05] MEDS: Acetaminophen/oxyCODONE 325-5 MG Tab PO PRN ×2 (09:11→21:34)
[2019-09-05] MEDS: Nystatin Topical Powder 30 GM Bottle TOP SCH ×3 (09:36→21:07)
--- NOTE | 2019-09-05 10:56 | PCM.PN ---
- General Info Date of Service: 09/05/19 Admission Dx/Problem (Free Text): acute encephalopathy Subjective Update: Mr. Hudson is an 79 year old male with past medical history significant for chronic kidney disease, diabetes mellitus, hyperlipidemia, dementia, hypertension who presented to the hospital with frequent falls and acute on chronic confusion, multiple episodes of falling. In the ED, patient was afebrile, hemodynamically stable. Lab was remarkable for sodium 134, anion gap of 16.4, and 19 creatinine 1.3. UA was positive for nitrites and leukocyte esterase. Chest x-ray showed no evidence of acute abnormalities and CT spine showed presence of hardware but otherwise no evidence of fractures. Overnight remained stable but confused. Denies chest pain, shortness of breath, cough. Needs significant help from nursing staff with activities, frequent reorientation. Functional Status: Reports: Tolerating Diet - Review of Systems General: Reports: Weakness. Denies: Fever Pulmonary: Denies: Shortness of Breath Cardiovascular: Denies: Chest Pain Gastrointestinal: Denies: Abdominal Pain Genitourinary: Reports: Dysuria Neurological: Reports: Confusion - Patient Data Vitals - Most Recent: Last Vital Signs Temp 97.4 F 09/05/19 07:50 Pulse 79 09/05/19 09:06 Resp 20 09/05/19 07:50 BP 183/87 H 09/05/19 09:06 Pulse Ox 96 09/05/19 07:50 Weight - Most Recent: 231 lb I&O - Last 24 Hours: Intake & Output 09/04/19 09/05/19 09/05/19 22:59 06:59 14:59 Intake Total 350 560 Balance 350 560 Lab Results Last 24 Hours: Laboratory Results - last 24 hr 09/04/19 09/04/19 09/04/19 Range/Units 14:22 14:22 14:22 WBC 8.4 (5.0-10.0) 10^3/uL RBC 3.52 L (4.6-6.2) 10^6/uL Hgb 10.8 L (14.0-18.0) g/dL Hct 32.2 L (40.0-54.0) % MCV 91.5 (80-100) fL MCH 30.7 (27.0-34.0) pg MCHC 33.5 (33.0-35.0) g/dL Plt Count 254 (150-450) 10^3/uL Neut % (Auto) 69.1 (42.2-75.2) % Lymph % (Auto) 19.1 L (20.5-50.1) % [place] % (Auto) 5.8 (2-8) % Eos % (Auto) 5.2 H (1.0-3.0) % Baso % (Auto) 0.8 (0.0-1.0) % Sodium 134 L (136-145) mmol/L Potassium 4.4 (3.5-5.1) mmol/L Chloride 96 L (98-107) mmol/L Carbon Dioxide 26 (21-32) mmol/L Anion Gap 16.4 H (7-13) mEq/L BUN 19 H (7-18) mg/dL Creatinine 1.30 (0.70-1.30) mg/dL Est Cr Clr Drug Dosing 45.32 mL/min Estimated GFR (MDRD) 53 BUN/Creatinine Ratio 14.6 (No establ ref range) Glucose 196 H (74-99) mg/dL POC Glucose (83-110) mg/dl Calcium 9.0 (8.5-10.1) mg/dL Total Bilirubin 0.4 (0.2-1.0) mg/dL AST 19 (15-37) U/L ALT 21 (16-63) U/L Alkaline Phosphatase 74 (46-116) U/L Troponin I < 0.017 (0.000-0.056) ng/mL B-Natriuretic Peptide 11 (0-100) pg/ml Total Protein 8.0 (6.4-8.2) g/dL Albumin 3.7 (3.4-5.0) g/dL Globulin 4.3 Albumin/Globulin Ratio 0.9 Urine Color (YELLOW) Urine Appearance (CLEAR) Urine pH (5.0-9.0) Ur Specific [place] (1.005-1.030) Urine Protein (NEGATIVE) Urine Glucose (UA) (NEGATIVE) Urine Ketones (NEGATIVE) Urine Occult Blood (NEGATIVE) Urine Nitrite (NEGATIVE) Urine Bilirubin (NEGATIVE) Urine Urobilinogen (0.2-1.0) mg/dL Ur Leukocyte Esterase (NEGATIVE) Urine RBC /HPF Urine WBC (0-5/HPF) /HPF Ur Epithelial Cells (NOT SEEN) /HPF Urine Bacteria (0-FEW/HPF) /HPF 09/04/19 09/04/19 09/05/19 Range/Units 15:25 21:20 07:05 WBC 8.2 (5.0-10.0) 10^3/uL RBC 3.50 L (4.6-6.2) 10^6/uL Hgb 10.8 L (14.0-18.0) g/dL Hct 31.5 L (40.0-54.0) % MCV 90.0 (80-100) fL MCH 30.9 (27.0-34.0) pg MCHC 34.3 (33.0-35.0) g/dL Plt Count 298 (150-450) 10^3/uL Neut % (Auto) 67.7 (42.2-75.2) % Lymph % (Auto) 19.3 L (20.5-50.1) % [place] % (Auto) 7.0 (2-8) % Eos % (Auto) 5.3 H (1.0-3.0) % Baso % (Auto) 0.7 (0.0-1.0) % Sodium (136-145) mmol/L Potassium (3.5-5.1) mmol/L Chloride (98-107) mmol/L Carbon Dioxide (21-32) mmol/L Anion Gap (7-13) mEq/L BUN (7-18) mg/dL Creatinine (0.70-1.30) mg/dL Est Cr Clr Drug Dosing mL/min Estimated GFR (MDRD) BUN/Creatinine Ratio (No establ ref range) Glucose (74-99) mg/dL POC Glucose 162 H (83-110) mg/dl Calcium (8.5-10.1) mg/dL Total Bilirubin (0.2-1.0) mg/dL AST (15-37) U/L ALT (16-63) U/L Alkaline Phosphatase (46-116) U/L Troponin I (0.000-0.056) ng/mL B-Natriuretic Peptide (0-100) pg/ml Total Protein (6.4-8.2) g/dL Albumin (3.4-5.0) g/dL Globulin Albumin/Globulin Ratio Urine Color Yellow (YELLOW) Urine Appearance Slightly cloudy (CLEAR) Urine pH 6.0 (5.0-9.0) Ur Specific [place] 1.015 (1.005-1.030) Urine Protein Negative (NEGATIVE) Urine Glucose (UA) Negative (NEGATIVE) Urine Ketones Negative (NEGATIVE) Urine Occult Blood Trace-lysed H (NEGATIVE) Urine Nitrite Positive H (NEGATIVE) Urine Bilirubin Negative (NEGATIVE) Urine Urobilinogen 0.2 (0.2-1.0) mg/dL Ur Leukocyte Esterase Small H (NEGATIVE) Urine RBC 0-5 /HPF Urine WBC 30-40 H (0-5/HPF) /HPF Ur Epithelial Cells Rare (NOT SEEN) /HPF Urine Bacteria Many H (0-FEW/HPF) /HPF 09/05/19 09/05/19 Range/Units 07:05 07:39 WBC (5.0-10.0) 10^3/uL RBC (4.6-6.2) 10^6/uL Hgb (14.0-18.0) g/dL Hct (40.0-54.0) % MCV (80-100) fL MCH (27.0-34.0) pg MCHC (33.0-35.0) g/dL Plt Count (150-450) 10^3/uL Neut % (Auto) (42.2-75.2) % Lymph % (Auto) (20.5-50.1) % [place] % (Auto) (2-8) % Eos % (Auto) (1.0-3.0) % Baso % (Auto) (0.0-1.0) % Sodium 134 L (136-145) mmol/L Potassium 4.0 (3.5-5.1) mmol/L Chloride 97 L (98-107) mmol/L Carbon Dioxide 27 (21-32) mmol/L Anion Gap 14.0 H (7-13) mEq/L BUN 15 (7-18) mg/dL Creatinine 1.14 (0.70-1.30) mg/dL Est Cr Clr Drug Dosing 51.68 mL/min Estimated GFR (MDRD) > 60 BUN/Creatinine Ratio (No establ ref range) Glucose 155 H (74-99) mg/dL POC Glucose 160 H (83-110) mg/dl Calcium 9.4 (8.5-10.1) mg/dL Total Bilirubin (0.2-1.0) mg/dL AST (15-37) U/L ALT (16-63) U/L Alkaline Phosphatase (46-116) U/L Troponin I (0.000-0.056) ng/mL B-Natriuretic Peptide (0-100) pg/ml Total Protein (6.4-8.2) g/dL Albumin (3.4-5.0) g/dL Globulin Albumin/Globulin Ratio Urine Color (YELLOW) Urine Appearance (CLEAR) Urine pH (5.0-9.0) Ur Specific [place] (1.005-1.030) Urine Protein (NEGATIVE) Urine Glucose (UA) (NEGATIVE) Urine Ketones (NEGATIVE) Urine Occult Blood (NEGATIVE) Urine Nitrite (NEGATIVE) Urine Bilirubin (NEGATIVE) Urine Urobilinogen (0.2-1.0) mg/dL Ur Leukocyte Esterase (NEGATIVE) Urine RBC /HPF Urine WBC (0-5/HPF) /HPF Ur Epithelial Cells (NOT SEEN) /HPF Urine Bacteria (0-FEW/HPF) /HPF [place] Results Last 24 Hours: Microbiology 09/04/19 15:25 Urine Culture - Preliminary Urine, Voided Med Orders - Current: Current Medications Acetaminophen (Tylenol) 650 mg PO Q4H PRN PRN Reason: Pain (Mild 1-3)/fever Allopurinol (Zyloprim) 300 mg PO DAILY [facility] Last Admin: 09/05/19 09:10 Dose: 300 mg Bumetanide (Bumex) 0.5 mg PO DAILY [facility] Last Admin: 09/05/19 09:04 Dose: 0.5 mg Carvedilol (Coreg) 12.5 mg PO BID [facility] Last Admin: 09/05/19 09:06 Dose: 12.5 mg Ciprofloxacin (Ciprofloxacin Hcl) 250 mg PO BID [facility] Last Admin: 09/05/19 09:05 Dose: 250 mg Duloxetine HCl (Cymbalta) 30 mg PO DAILY [facility] Last Admin: 09/05/19 09:07 Dose: 30 mg Finasteride (Proscar) 5 mg PO BEDTIME [facility] Last Admin: 09/04/19 22:10 Dose: 5 mg Heparin Sodium (Porcine) (Heparin Sodium) 5,000 units SUBCUT Q8HR [facility] Last Admin: 09/05/19 06:49 Dose: 5,000 units Insulin Glargine (Lantus) 30 unit SUBCUT BEDTIME [facility] Last Admin: 09/04/19 22:16 Dose: 30 units Insulin Glargine (Lantus) 35 unit SUBCUT DAILY [facility] Last Admin: 09/05/19 09:09 Dose: 35 units Insulin Human Lispro (Humalog) 4 unit SUBCUT TIDMEALS [facility] Last Admin: 09/05/19 09:02 Dose: 4 units Nystatin (Nystop) 0 gm TOP TID [facility] Last Admin: 09/05/19 09:36 Dose: 1 applic Omeprazole (Omeprazole) 20 mg PO ACBREAKFAST [facility] Last Admin: 09/05/19 06:49 Dose: 20 mg Oxycodone HCl (Oxycodone) 5 mg PO TID PRN PRN Reason: PAIN Last Admin: 09/05/19 09:10 Dose: 5 mg Oxycodone/Acetaminophen (Percocet 325-5 Mg) 1 tab PO TID PRN PRN Reason: PAIN Last Admin: 09/05/19 09:11 Dose: 1 tab Pregabalin (Lyrica) 150 mg PO BID [facility] Last Admin: 09/05/19 09:09 Dose: 150 mg Simvastatin (Zocor) 20 mg PO BEDTIME [facility] Last Admin: 09/04/19 22:11 Dose: 20 mg Tamsulosin HCl (Flomax) 0.4 mg PO BID [facility] Last Admin: 09/05/19 09:07 Dose: 0.4 mg Discontinued Medications Ceftriaxone Sodium (Rocephin) 1 gm IVPUSH Q24H [facility] Last Admin: 09/04/19 19:48 Dose: Not Given Ceftriaxone Sodium 1 gm/ (Sodium Chloride) 50 mls @ 100 mls/hr IV Q24H [facility] Last Admin: 09/04/19 17:05 Dose: Not Given Sterile Water (Sterile Water For Injection) Confirm Administered Dose 20 mls @ as directed .ROUTE .STK-MED ONE Stop: 09/04/19 17:08 Last Admin: 09/04/19 17:40 Dose: Not Given - Exam General: Alert. No: Oriented Neck: Supple Lungs: Clear to Auscultation, Normal Respiratory Effort Cardiovascular: Regular Rate, Regular Rhythm GI/Abdominal Exam: Normal Bowel Sounds, Soft, Non-Tender, Other (Obese) Extremities: No Pedal Edema Sepsis Event Note - Evaluation Sepsis Screening Result: No Definite Risk - Focused Exam Vital Signs: Vital Signs Temp Pulse Pulse Resp BP BP Pulse Ox 09/05/19 09:06 79 183/87 H 09/05/19 07:50 97.4 F 79 20 183/87 H 96 09/05/19 04:00 97.4 F 84 20 175/78 H 95 Date Exam was Performed: 09/05/19 Time Exam was Performed: 11:02 - Problem List & Annotations (1) Altered mental status SNOMED Code(s): 374340711 Code(s): R41.82 - ALTERED MENTAL STATUS, UNSPECIFIED Status: Acute Current Visit: No Qualifiers: Altered mental status type: unspecified Qualified Code(s): R41.82 - Altered mental status, unspecified (2) UTI (urinary tract infection) SNOMED Code(s): 65559655 Code(s): N39.0 - URINARY TRACT INFECTION, SITE NOT SPECIFIED Status: Acute Current Visit: No Qualifiers: Urinary tract infection type: site unspecified Hematuria presence: without hematuria Qualified Code(s): N39.0 - Urinary tract infection, site not specified - Problem List Review Problem List Initiated/Reviewed/Updated: Yes - My Orders Last 24 Hours: My Active Orders 09/05/19 09:15 Nystatin [Nystop] 0 gm TOP TID 09/05/19 09:55 CORONAVIRUS COVID-19 PCR PHL Routine - Plan Plan:: Acute encephalopathy with underlying dementia/recurrent falls This was likely triggered by UTI Frequent reorientation Physical and occupational therapy UTI Urine culture shows gram-negative rods Further identification and Sensitivity is pending Started empirically on ceftriaxone DM 2 Continue glargine and lispro Follow blood sugars Chronic back pain Continue pregabaline Hypertension Uncontrolled Continue Coreg, Bumex Add Norvasc Add as needed clonidine for systolic blood pressure above 160 Gout treat with Allopurinol CKD avoid nephrotoxic agents continue Bumex Hyperlipidemia treat with statin DVT prophylaxis Subcutaneous heparin Physical and occupational therapy Discussed discharge planning The patient will likely need snf Nursing homes require COVID testing - we will initiate it
[2019-09-05] MEDS ORDERED: cloNIDine 0.1 MG Tab PO PRN (11:01)
[2019-09-05] MEDS: amLODIPine 5 MG Tab PO SCH (12:50)
[2019-09-05] MEDS: Simvastatin 40 MG Tab PO SCH (21:10)
[2019-09-05] MEDS: Finasteride 5 MG Tab PO SCH (21:11)
[2019-09-06] MEDS: Heparin Sodium 5,000 Units/ML Vial SUBCUT SCH ×4 (05:55→23:27)
[2019-09-06] MEDS: Omeprazole 20 MG Cap.CR PO SCH ×2 (05:55→05:59)
[2019-09-06 06:50] LABS: ANION GAP 12.8 mEq/L (7-13)
[2019-09-06] MEDS: Insulin Glarg,Human.Rec.Analog 100 Unit/ML SUBCUT SCH ×2 (09:39→20:42)
[2019-09-06] MEDS: Insulin Lispro 100 Units/ML 3 ML Vial SUBCUT SCH ×3 (09:39→17:57)
[2019-09-06] MEDS: Carvedilol 25 MG Tab PO SCH ×2 (09:41→20:00)
[2019-09-06] MEDS: amLODIPine 5 MG Tab PO SCH (09:41)
[2019-09-06] MEDS: Acetaminophen/oxyCODONE 325-5 MG Tab PO PRN ×2 (09:42→20:08)
[2019-09-06] MEDS: DULoxetine 30 MG Cap PO SCH (09:43)
[2019-09-06] MEDS: Bumetanide 1 MG Tab PO SCH (09:43)
[2019-09-06] MEDS: oxyCODONE 5 MG Tab PO PRN ×2 (09:43→20:08)
[2019-09-06] MEDS: Ciprofloxacin 500 MG Tab PO SCH (09:43)
[2019-09-06] MEDS: Tamsulosin 0.4 MG Cap.ER PO SCH ×2 (09:43→20:02)
[2019-09-06] MEDS: Nystatin Topical Powder 30 GM Bottle TOP SCH ×3 (09:44→20:01)
[2019-09-06] MEDS: Allopurinol 300 MG Tab PO SCH (09:44)
--- NOTE | 2019-09-06 11:14 | PCM.PN ---
- General Info Date of Service: 09/06/19 Admission Dx/Problem (Free Text): acute encephalopathy Functional Status: Reports: Pain Controlled, Tolerating Diet - Review of Systems General: Denies: Fever Pulmonary: Denies: Shortness of Breath Cardiovascular: Denies: Chest Pain Gastrointestinal: Denies: Abdominal Pain Neurological: Reports: Confusion - Patient Data Vitals - Most Recent: Last Vital Signs Temp 98.2 F 09/06/19 08:30 Pulse 80 09/06/19 09:41 Resp 20 09/06/19 08:30 BP 149/70 H 09/06/19 09:41 Pulse Ox 98 09/06/19 08:30 Weight - Most Recent: 231 lb I&O - Last 24 Hours: Intake & Output 09/05/19 09/06/19 09/06/19 22:59 06:59 14:59 Intake Total 500 510 200 Balance 500 510 200 Lab Results Last 24 Hours: Laboratory Results - last 24 hr 09/05/19 09/05/19 09/05/19 Range/Units 11:17 16:49 20:53 WBC (5.0-10.0) 10^3/uL RBC (4.6-6.2) 10^6/uL Hgb (14.0-18.0) g/dL Hct (40.0-54.0) % MCV (80-100) fL MCH (27.0-34.0) pg MCHC (33.0-35.0) g/dL Plt Count (150-450) 10^3/uL Neut % (Auto) (42.2-75.2) % Lymph % (Auto) (20.5-50.1) % White % (Auto) (2-8) % Eos % (Auto) (1.0-3.0) % Baso % (Auto) (0.0-1.0) % Sodium (136-145) mmol/L Potassium (3.5-5.1) mmol/L Chloride (98-107) mmol/L Carbon Dioxide (21-32) mmol/L Anion Gap (7-13) mEq/L BUN (7-18) mg/dL Creatinine (0.70-1.30) mg/dL Est Cr Clr Drug Dosing mL/min Estimated GFR (MDRD) Glucose (74-99) mg/dL POC Glucose 195 H 150 H 174 H (83-110) mg/dl Calcium (8.5-10.1) mg/dL 09/06/19 09/06/19 09/06/19 Range/Units 05:50 05:50 08:06 WBC 8.7 (5.0-10.0) 10^3/uL RBC 3.54 L (4.6-6.2) 10^6/uL Hgb 10.8 L (14.0-18.0) g/dL Hct 31.7 L (40.0-54.0) % MCV 89.5 (80-100) fL MCH 30.5 (27.0-34.0) pg MCHC 34.1 (33.0-35.0) g/dL Plt Count 288 (150-450) 10^3/uL Neut % (Auto) 65.5 (42.2-75.2) % Lymph % (Auto) 19.7 L (20.5-50.1) % White % (Auto) 9.2 H (2-8) % Eos % (Auto) 5.0 H (1.0-3.0) % Baso % (Auto) 0.6 (0.0-1.0) % Sodium 133 L (136-145) mmol/L Potassium 3.8 (3.5-5.1) mmol/L Chloride 95 L (98-107) mmol/L Carbon Dioxide 29 (21-32) mmol/L Anion Gap 12.8 (7-13) mEq/L BUN 14 (7-18) mg/dL Creatinine 1.38 H (0.70-1.30) mg/dL Est Cr Clr Drug Dosing 42.69 mL/min Estimated GFR (MDRD) 50 Glucose 169 H (74-99) mg/dL POC Glucose 183 H (83-110) mg/dl Calcium 9.1 (8.5-10.1) mg/dL Romulo Results Last 24 Hours: Microbiology 09/04/19 15:25 Urine Culture - Final Urine, Voided Escherichia Coli Med Orders - Current: Current Medications Acetaminophen (Tylenol) 650 mg PO Q4H PRN PRN Reason: Pain (Mild 1-3)/fever Allopurinol (Zyloprim) 300 mg PO DAILY [facility] Last Admin: 09/06/19 09:44 Dose: 300 mg Amlodipine Besylate (Norvasc) 5 mg PO DAILY [facility] Last Admin: 09/06/19 09:41 Dose: 5 mg Bumetanide (Bumex) 0.5 mg PO DAILY [facility] Last Admin: 09/06/19 09:43 Dose: 0.5 mg Carvedilol (Coreg) 12.5 mg PO BID@0800,1800 [facility] Last Admin: 09/06/19 09:41 Dose: 12.5 mg Clonidine HCl (Catapres) 0.1 mg PO Q8H PRN PRN Reason: sbp > 160 Last Admin: 09/05/19 21:35 Dose: 0.1 mg Duloxetine HCl (Cymbalta) 30 mg PO DAILY [facility] Last Admin: 09/06/19 09:43 Dose: 30 mg Finasteride (Proscar) 5 mg PO BEDTIME [facility] Last Admin: 09/05/19 21:11 Dose: 5 mg Heparin Sodium (Porcine) (Heparin Sodium) 5,000 units SUBCUT Q8HR [facility] Last Admin: 09/06/19 05:55 Dose: 5,000 units Insulin Glargine (Lantus) 30 unit SUBCUT BEDTIME [facility] Last Admin: 09/05/19 21:35 Dose: 30 units Insulin Glargine (Lantus) 35 unit SUBCUT DAILY [facility] Last Admin: 09/06/19 09:39 Dose: 35 units Insulin Human Lispro (Humalog) 4 unit SUBCUT TIDMEALS [facility] Last Admin: 09/06/19 09:39 Dose: 4 units Nystatin (Nystop) 0 gm TOP TID [facility] Last Admin: 09/06/19 09:44 Dose: 1 applic Omeprazole (Omeprazole) 20 mg PO ACBREAKFAST [facility] Last Admin: 09/06/19 05:59 Dose: Not Given Oxycodone HCl (Oxycodone) 5 mg PO TID PRN PRN Reason: PAIN Last Admin: 09/06/19 09:43 Dose: 5 mg Oxycodone/Acetaminophen (Percocet 325-5 Mg) 1 tab PO TID PRN PRN Reason: Pain (moderate 4-6) Last Admin: 09/06/19 09:42 Dose: 1 tab Pregabalin (Lyrica) 150 mg PO BID [facility] Last Admin: 09/06/19 09:44 Dose: 150 mg Simvastatin (Zocor) 20 mg PO BEDTIME [facility] Last Admin: 09/05/19 21:10 Dose: 20 mg Tamsulosin HCl (Flomax) 0.4 mg PO BID [facility] Last Admin: 09/06/19 09:43 Dose: 0.4 mg Discontinued Medications Carvedilol (Coreg) 12.5 mg PO BID [facility] Last Admin: 09/05/19 21:09 Dose: 12.5 mg Ceftriaxone Sodium (Rocephin) 1 gm IVPUSH Q24H [facility] Last Admin: 09/04/19 19:48 Dose: Not Given Ciprofloxacin (Ciprofloxacin Hcl) 250 mg PO BID [facility] Last Admin: 09/06/19 09:43 Dose: 250 mg Ceftriaxone Sodium 1 gm/ (Sodium Chloride) 50 mls @ 100 mls/hr IV Q24H [facility] Last Admin: 09/04/19 17:05 Dose: Not Given Sterile Water (Sterile Water For Injection) Confirm Administered Dose 20 mls @ as directed .ROUTE .STK-MED ONE Stop: 09/04/19 17:08 Last Admin: 09/04/19 17:40 Dose: Not Given Oxycodone HCl (Oxycodone) 5 mg PO TID PRN PRN Reason: PAIN Last Admin: 09/05/19 21:35 Dose: 5 mg Oxycodone/Acetaminophen (Percocet 325-5 Mg) 1 tab PO TID PRN PRN Reason: Pain (moderate 4-6) Last Admin: 09/05/19 21:34 Dose: 1 tab - Exam General: Alert. No: Oriented Neck: Supple Lungs: Clear to Auscultation, Normal Respiratory Effort Cardiovascular: Regular Rate, Regular Rhythm Extremities: No Pedal Edema Skin: Warm, Dry Neurological: No New Focal Deficit Psy/Mental Status: Alert, Anxious, Agitated (periodically) Sepsis Event Note - Evaluation Sepsis Screening Result: No Definite Risk - Focused Exam Vital Signs: Vital Signs Temp Pulse Pulse Resp BP BP Pulse Ox 09/06/19 09:41 80 149/70 H 09/06/19 08:30 98.2 F 80 20 149/70 H 98 09/06/19 04:30 98 F 76 20 151/79 H 95 09/06/19 00:00 97.6 F 85 20 150/77 H 96 Date Exam was Performed: 09/06/19 Time Exam was Performed: 11:12 - Problem List & Annotations (1) Altered mental status SNOMED Code(s): 944362690 Code(s): R41.82 - ALTERED MENTAL STATUS, UNSPECIFIED Status: Acute Current Visit: No Qualifiers: Altered mental status type: unspecified Qualified Code(s): R41.82 - Altered mental status, unspecified (2) UTI (urinary tract infection) SNOMED Code(s): 18065660 Code(s): N39.0 - URINARY TRACT INFECTION, SITE NOT SPECIFIED Status: Acute Current Visit: No Qualifiers: Urinary tract infection type: site unspecified Hematuria presence: without hematuria Qualified Code(s): N39.0 - Urinary tract infection, site not specified - Problem List Review Problem List Initiated/Reviewed/Updated: Yes - My Orders Last 24 Hours: My Active Orders 09/05/19 11:00 amLODIPine [Norvasc] 5 mg PO DAILY 09/05/19 11:01 cloNIDine [Catapres] 0.1 mg PO Q8H PRN 09/06/19 14:00 cephALEXin [Keflex] 500 mg PO TID - Plan Plan:: Acute encephalopathy with underlying dementia/recurrent falls This was likely triggered by UTI Frequent reorientation Physical and occupational therapy UTI Urine culture shows e coli, resistant to cipro - sens to keflex switch to PO Keflex DM 2 Continue glargine and lispro Follow blood sugars Chronic back pain Continue pregabaline Hypertension better controlled Continue Coreg, Bumex Added Norvasc Added as needed clonidine for systolic blood pressure above 160 Gout treat with Allopurinol CKD avoid nephrotoxic agents continue Bumex Hyperlipidemia treat with statin DVT prophylaxis Subcutaneous heparin Physical and occupational therapy Discussed discharge planning The patient will likely need [facility]p Nursing homes require COVID testing - pending
[2019-09-06] MEDS: Cephalexin 500 MG Cap PO SCH ×2 (13:48→20:03)
[2019-09-06] MEDS: Simvastatin 40 MG Tab PO SCH (20:02)
[2019-09-06] MEDS: Finasteride 5 MG Tab PO SCH (20:02)
[2019-09-07] MEDS: Heparin Sodium 5,000 Units/ML Vial SUBCUT SCH ×3 (05:01→22:23)
[2019-09-07] MEDS: Omeprazole 20 MG Cap.CR PO SCH (05:04)
[2019-09-07] MEDS: Insulin Lispro 100 Units/ML 3 ML Vial SUBCUT SCH ×3 (11:05→17:25)
[2019-09-07] MEDS: Insulin Glarg,Human.Rec.Analog 100 Unit/ML SUBCUT SCH ×2 (11:12→22:21)
[2019-09-07] MEDS: Cephalexin 500 MG Cap PO SCH ×2 (11:13→22:25)
[2019-09-07] MEDS: amLODIPine 5 MG Tab PO SCH (11:14)
[2019-09-07] MEDS: Tamsulosin 0.4 MG Cap.ER PO SCH ×2 (11:14→22:25)
[2019-09-07] MEDS: oxyCODONE 5 MG Tab PO PRN ×2 (11:14→22:29)
[2019-09-07] MEDS: DULoxetine 30 MG Cap PO SCH (11:16)
[2019-09-07] MEDS: Allopurinol 300 MG Tab PO SCH (11:16)
[2019-09-07] MEDS: Acetaminophen/oxyCODONE 325-5 MG Tab PO PRN ×2 (11:16→22:28)
[2019-09-07] MEDS: Nystatin Topical Powder 30 GM Bottle TOP SCH ×3 (11:17→22:24)
[2019-09-07] MEDS: Bumetanide 1 MG Tab PO SCH (11:17)
[2019-09-07] MEDS: Carvedilol 25 MG Tab PO SCH ×2 (11:20→17:26)
--- NOTE | 2019-09-07 11:46 | PCM.PN ---
- General Info Date of Service: 09/07/19 Admission Dx/Problem (Free Text): acute encephalopathy Subjective Update: Mr. Hudson is an 79 year old male with past medical history significant for chronic kidney disease, diabetes mellitus, hyperlipidemia, dementia, hypertension who presented to the hospital with frequent falls and acute on chronic confusion, multiple episodes of falling. In the ED, patient was afebrile, hemodynamically stable. Lab was remarkable for sodium 134, anion gap of 16.4, and 19 creatinine 1.3. UA was positive for nitrites and leukocyte esterase. Chest x-ray showed no evidence of acute abnormalities and CT spine showed presence of hardware but otherwise no evidence of fractures. since admission remained stable but confused. Severity of confusion varies from mild to severe. Associated episodes of agitation or most aggressive behavior. Denies chest pain, shortness of breath, cough. Needs significant help from nursing staff with activities of daily living, frequent reorientation. - Review of Systems General: Reports: Weakness. Denies: Fever Pulmonary: Denies: Shortness of Breath Cardiovascular: Denies: Chest Pain Genitourinary: Denies: Dysuria - Patient Data Vitals - Most Recent: Last Vital Signs Temp 98.9 F 09/07/19 08:21 Pulse 95 09/07/19 11:20 Resp 16 09/07/19 08:21 BP 147/76 H 09/07/19 11:20 Pulse Ox 98 09/07/19 08:21 Weight - Most Recent: 231 lb I&O - Last 24 Hours: Intake & Output 09/06/19 09/07/19 09/07/19 22:59 06:59 14:59 Intake Total 540 Balance 540 Lab Results Last 24 Hours: Laboratory Results - last 24 hr 09/05/19 09/06/19 09/06/19 Range/Units 09:55 11:52 16:45 WBC (5.0-10.0) 10^3/uL RBC (4.6-6.2) 10^6/uL Hgb (14.0-18.0) g/dL Hct (40.0-54.0) % MCV (80-100) fL MCH (27.0-34.0) pg MCHC (33.0-35.0) g/dL Plt Count (150-450) 10^3/uL Neut % (Auto) (42.2-75.2) % Lymph % (Auto) (20.5-50.1) % Bullock % (Auto) (2-8) % Eos % (Auto) (1.0-3.0) % Baso % (Auto) (0.0-1.0) % Sodium (136-145) mmol/L Potassium (3.5-5.1) mmol/L Chloride (98-107) mmol/L Carbon Dioxide (21-32) mmol/L Anion Gap (7-13) mEq/L BUN (7-18) mg/dL Creatinine (0.70-1.30) mg/dL Est Cr Clr Drug Dosing mL/min Estimated GFR (MDRD) Glucose (74-99) mg/dL POC Glucose 251 H 143 H (83-110) mg/dl Calcium (8.5-10.1) mg/dL COVID-19 PCR See scanned report (NOT DETECT) 09/06/19 09/07/19 09/07/19 Range/Units 20:37 05:45 05:45 WBC 10.7 H (5.0-10.0) 10^3/uL RBC 3.68 L (4.6-6.2) 10^6/uL Hgb 11.3 L (14.0-18.0) g/dL Hct 33.0 L (40.0-54.0) % MCV 89.7 (80-100) fL MCH 30.7 (27.0-34.0) pg MCHC 34.2 (33.0-35.0) g/dL Plt Count 311 (150-450) 10^3/uL Neut % (Auto) 70.3 (42.2-75.2) % Lymph % (Auto) 18.1 L (20.5-50.1) % Bullock % (Auto) 8.2 H (2-8) % Eos % (Auto) 2.9 (1.0-3.0) % Baso % (Auto) 0.5 (0.0-1.0) % Sodium 133 L (136-145) mmol/L Potassium 4.0 (3.5-5.1) mmol/L Chloride 95 L (98-107) mmol/L Carbon Dioxide 27 (21-32) mmol/L Anion Gap 15.0 H (7-13) mEq/L BUN 20 H (7-18) mg/dL Creatinine 1.54 H (0.70-1.30) mg/dL Est Cr Clr Drug Dosing 38.26 mL/min Estimated GFR (MDRD) 44 Glucose 156 H (74-99) mg/dL POC Glucose 167 H (83-110) mg/dl Calcium 9.3 (8.5-10.1) mg/dL COVID-19 PCR (NOT DETECT) 09/07/19 09/07/19 Range/Units 08:01 11:32 WBC (5.0-10.0) 10^3/uL RBC (4.6-6.2) 10^6/uL Hgb (14.0-18.0) g/dL Hct (40.0-54.0) % MCV (80-100) fL MCH (27.0-34.0) pg MCHC (33.0-35.0) g/dL Plt Count (150-450) 10^3/uL Neut % (Auto) (42.2-75.2) % Lymph % (Auto) (20.5-50.1) % Bullock % (Auto) (2-8) % Eos % (Auto) (1.0-3.0) % Baso % (Auto) (0.0-1.0) % Sodium (136-145) mmol/L Potassium (3.5-5.1) mmol/L Chloride (98-107) mmol/L Carbon Dioxide (21-32) mmol/L Anion Gap (7-13) mEq/L BUN (7-18) mg/dL Creatinine (0.70-1.30) mg/dL Est Cr Clr Drug Dosing mL/min Estimated GFR (MDRD) Glucose (74-99) mg/dL POC Glucose 171 H 249 H (83-110) mg/dl Calcium (8.5-10.1) mg/dL COVID-19 PCR (NOT DETECT) Romulo Results Last 24 Hours: Microbiology 09/04/19 15:25 Urine Culture - Final Urine, Voided Escherichia Coli Med Orders - Current: Current Medications Acetaminophen (Tylenol) 650 mg PO Q4H PRN PRN Reason: Pain (Mild 1-3)/fever Allopurinol (Zyloprim) 150 mg PO DAILY [facility] Amlodipine Besylate (Norvasc) 5 mg PO DAILY [facility] Last Admin: 09/07/19 11:14 Dose: 5 mg Carvedilol (Coreg) 12.5 mg PO BID@0800,1800 [facility] Last Admin: 09/07/19 11:20 Dose: 12.5 mg Cephalexin (Keflex) 500 mg PO BID [facility] Last Admin: 09/07/19 11:13 Dose: 500 mg Clonidine HCl (Catapres) 0.1 mg PO Q8H PRN PRN Reason: sbp > 160 Last Admin: 09/05/19 21:35 Dose: 0.1 mg Duloxetine HCl (Cymbalta) 30 mg PO DAILY [facility] Last Admin: 09/07/19 11:16 Dose: 30 mg Finasteride (Proscar) 5 mg PO BEDTIME [facility] Last Admin: 09/06/19 20:02 Dose: 5 mg Heparin Sodium (Porcine) (Heparin Sodium) 5,000 units SUBCUT Q8HR [facility] Last Admin: 09/07/19 05:01 Dose: 5,000 units Insulin Glargine (Lantus) 30 unit SUBCUT BEDTIME [facility] Last Admin: 09/06/19 20:42 Dose: 30 units Insulin Glargine (Lantus) 35 unit SUBCUT DAILY [facility] Last Admin: 09/07/19 11:12 Dose: 35 units Insulin Human Lispro (Humalog) 4 unit SUBCUT TIDMEALS [facility] Last Admin: 09/07/19 11:05 Dose: Not Given Nystatin (Nystop) 0 gm TOP TID [facility] Last Admin: 09/07/19 11:17 Dose: 1 applic Omeprazole (Omeprazole) 20 mg PO ACBREAKFAST [facility] Last Admin: 09/07/19 05:04 Dose: Not Given Oxycodone HCl (Oxycodone) 5 mg PO TID PRN PRN Reason: PAIN Last Admin: 09/07/19 11:14 Dose: 5 mg Oxycodone/Acetaminophen (Percocet 325-5 Mg) 1 tab PO TID PRN PRN Reason: Pain (moderate 4-6) Last Admin: 09/07/19 11:16 Dose: 1 tab Pregabalin (Lyrica) 150 mg PO BID [facility] Last Admin: 09/07/19 11:16 Dose: 150 mg Simvastatin (Zocor) 20 mg PO BEDTIME [facility] Last Admin: 09/06/19 20:02 Dose: 20 mg Tamsulosin HCl (Flomax) 0.4 mg PO BID [facility] Last Admin: 09/07/19 11:14 Dose: 0.4 mg Discontinued Medications Allopurinol (Zyloprim) 300 mg PO DAILY [facility] Last Admin: 09/07/19 11:16 Dose: 300 mg Bumetanide (Bumex) 0.5 mg PO DAILY [facility] Last Admin: 09/07/19 11:17 Dose: 0.5 mg Carvedilol (Coreg) 12.5 mg PO BID [facility] Last Admin: 09/05/19 21:09 Dose: 12.5 mg Ceftriaxone Sodium (Rocephin) 1 gm IVPUSH Q24H [facility] Last Admin: 09/04/19 19:48 Dose: Not Given Ciprofloxacin (Ciprofloxacin Hcl) 250 mg PO BID [facility] Last Admin: 09/06/19 09:43 Dose: 250 mg Ceftriaxone Sodium 1 gm/ (Sodium Chloride) 50 mls @ 100 mls/hr IV Q24H [facility] Last Admin: 09/04/19 17:05 Dose: Not Given Sterile Water (Sterile Water For Injection) Confirm Administered Dose 20 mls @ as directed .ROUTE .STK-MED ONE Stop: 09/04/19 17:08 Last Admin: 09/04/19 17:40 Dose: Not Given Oxycodone HCl (Oxycodone) 5 mg PO TID PRN PRN Reason: PAIN Last Admin: 09/05/19 21:35 Dose: 5 mg Oxycodone/Acetaminophen (Percocet 325-5 Mg) 1 tab PO TID PRN PRN Reason: Pain (moderate 4-6) Last Admin: 09/05/19 21:34 Dose: 1 tab - Exam General: Alert. No: Oriented Lungs: Decreased Breath Sounds Cardiovascular: Regular Rate, Regular Rhythm GI/Abdominal Exam: Normal Bowel Sounds, Soft, Non-Tender Extremities: No Pedal Edema Neurological: No New Focal Deficit Psy/Mental Status: Alert, Normal Affect, Normal Mood Sepsis Event Note - Evaluation Sepsis Screening Result: No Definite Risk - Focused Exam Vital Signs: Vital Signs Temp Pulse Pulse Resp BP BP Pulse Ox 09/07/19 11:20 95 147/76 H 09/07/19 11:14 147/76 H 09/07/19 08:21 98.9 F 87 16 163/74 H 98 09/07/19 05:00 98.4 F 80 20 140/64 95 Date Exam was Performed: 09/07/19 Time Exam was Performed: 11:43 - Problem List & Annotations (1) Altered mental status SNOMED Code(s): 434409840 Code(s): R41.82 - ALTERED MENTAL STATUS, UNSPECIFIED Status: Acute Current Visit: No Qualifiers: Altered mental status type: unspecified Qualified Code(s): R41.82 - Altered mental status, unspecified (2) UTI (urinary tract infection) SNOMED Code(s): 33054104 Code(s): N39.0 - URINARY TRACT INFECTION, SITE NOT SPECIFIED Status: Acute Current Visit: No Qualifiers: Urinary tract infection type: site unspecified Hematuria presence: without hematuria Qualified Code(s): N39.0 - Urinary tract infection, site not specified - Problem List Review Problem List Initiated/Reviewed/Updated: Yes - My Orders Last 24 Hours: My Active Orders 09/06/19 12:00 cephALEXin [Keflex] 500 mg PO BID 09/08/19 09:00 allopurinoL [Zyloprim] 150 mg PO DAILY - Plan Plan:: Acute encephalopathy with underlying dementia/recurrent falls This was likely triggered by UTI Frequent reorientation Physical and occupational therapy UTI Urine culture shows e coli, resistant to cipro - sens to keflex Treat with PO Keflex DM 2 Continue glargine and lispro Follow blood sugars Chronic back pain Continue pregabaline Hypertension Continue Coreg, Stop Bumex Added Norvasc Added as needed clonidine for systolic blood pressure above 160 Gout Decrease dose of Allopurinol given renal insufficiency CKD III avoid nephrotoxic agents Vantin and is slightly increasing, stop Bumex for now Hyperlipidemia treat with statin DVT prophylaxis Subcutaneous heparin Physical and occupational therapy Discussed discharge planning The patient will likely need retirement Nursing homes require COVID testing - pending
[2019-09-07] MEDS: Simvastatin 40 MG Tab PO SCH (22:26)
[2019-09-07] MEDS: Finasteride 5 MG Tab PO SCH (22:26)
[2019-09-08] MEDS: Omeprazole 20 MG Cap.CR PO SCH (06:09)
[2019-09-08] MEDS: Heparin Sodium 5,000 Units/ML Vial SUBCUT SCH ×3 (06:11→22:08)
[2019-09-08] MEDS: Carvedilol 25 MG Tab PO SCH ×2 (08:24→18:24)
[2019-09-08] MEDS: Insulin Lispro 100 Units/ML 3 ML Vial SUBCUT SCH ×3 (08:25→18:27)
[2019-09-08] MEDS: Cephalexin 500 MG Cap PO SCH ×2 (08:26→20:16)
[2019-09-08] MEDS: DULoxetine 30 MG Cap PO SCH (08:26)
[2019-09-08] MEDS: Tamsulosin 0.4 MG Cap.ER PO SCH ×2 (08:26→20:16)
[2019-09-08] MEDS: amLODIPine 5 MG Tab PO SCH (08:27)
[2019-09-08] MEDS: Allopurinol 300 MG Tab PO SCH (08:28)
[2019-09-08] MEDS: Nystatin Topical Powder 30 GM Bottle TOP SCH ×3 (08:28→20:22)
[2019-09-08] MEDS: Acetaminophen/oxyCODONE 325-5 MG Tab PO PRN ×2 (08:29→20:16)
[2019-09-08] MEDS: oxyCODONE 5 MG Tab PO PRN ×2 (08:30→23:02)
[2019-09-08] MEDS: Insulin Glarg,Human.Rec.Analog 100 Unit/ML SUBCUT SCH ×2 (08:41→22:09)
[2019-09-08] MEDS ORDERED: Benzocaine/Docusate Sodium 20-283 MG/5 ML Enema RECTAL ONE (09:57)
--- NOTE | 2019-09-08 09:59 | PCM.PN ---
- General Info Date of Service: 09/08/19 Admission Dx/Problem (Free Text): acute encephalopathy Subjective Update: Mr. Hudson is an 79 year old male with past medical history significant for chronic kidney disease, diabetes mellitus, hyperlipidemia, dementia, hypertension who presented to the hospital with frequent falls and acute on chronic confusion, multiple episodes of falling. In the ED, patient was afebrile, hemodynamically stable. Lab was remarkable for sodium 134, anion gap of 16.4, and 19 creatinine 1.3. UA was positive for nitrites and leukocyte esterase. Chest x-ray showed no evidence of acute abnormalities and CT spine showed presence of hardware but otherwise no evidence of fractures. since admission remained stable but confused. Severity of confusion varies from mild to severe. Denies chest pain, shortness of breath, cough. Has constipation for days. Needs significant help from nursing staff with activities of daily living, frequent reorientation. Functional Status: Reports: Tolerating Diet - Review of Systems General: Denies: Fever Pulmonary: Denies: Shortness of Breath Cardiovascular: Denies: Chest Pain Gastrointestinal: Reports: Constipation. Denies: Abdominal Pain - Patient Data Vitals - Most Recent: Last Vital Signs Temp 98.2 F 09/08/19 08:00 Pulse 84 09/08/19 08:24 Resp 20 09/08/19 08:00 BP 149/79 H 09/08/19 08:27 Pulse Ox 92 L 09/08/19 08:00 Weight - Most Recent: 231 lb I&O - Last 24 Hours: Intake & Output 09/07/19 09/08/19 09/08/19 22:59 06:59 14:59 Intake Total 420 100 Balance 420 100 Lab Results Last 24 Hours: Laboratory Results - last 24 hr 09/07/19 09/07/19 09/07/19 Range/Units 11:32 16:54 21:42 POC Glucose 249 H 226 H 171 H (83-110) mg/dl 09/08/19 Range/Units 07:58 POC Glucose 156 H (83-110) mg/dl Med Orders - Current: Current Medications Acetaminophen (Tylenol) 650 mg PO Q4H PRN PRN Reason: Pain (Mild 1-3)/fever Allopurinol (Zyloprim) 150 mg PO DAILY [facility] Last Admin: 09/08/19 08:28 Dose: 150 mg Amlodipine Besylate (Norvasc) 5 mg PO DAILY [facility] Last Admin: 09/08/19 08:27 Dose: 5 mg Carvedilol (Coreg) 12.5 mg PO BID@0800,1800 [facility] Last Admin: 09/08/19 08:24 Dose: 12.5 mg Cephalexin (Keflex) 500 mg PO BID [facility] Last Admin: 09/08/19 08:26 Dose: 500 mg Clonidine HCl (Catapres) 0.1 mg PO Q8H PRN PRN Reason: sbp > 160 Last Admin: 09/05/19 21:35 Dose: 0.1 mg Duloxetine HCl (Cymbalta) 30 mg PO DAILY [facility] Last Admin: 09/08/19 08:26 Dose: 30 mg Finasteride (Proscar) 5 mg PO BEDTIME [facility] Last Admin: 09/07/19 22:26 Dose: 5 mg Heparin Sodium (Porcine) (Heparin Sodium) 5,000 units SUBCUT Q8HR [facility] Last Admin: 09/08/19 06:11 Dose: 5,000 units Insulin Glargine (Lantus) 30 unit SUBCUT BEDTIME [facility] Last Admin: 09/07/19 22:21 Dose: 30 units Insulin Glargine (Lantus) 35 unit SUBCUT DAILY [facility] Last Admin: 09/08/19 08:41 Dose: 35 units Insulin Human Lispro (Humalog) 4 unit SUBCUT TIDMEALS [facility] Last Admin: 09/08/19 08:25 Dose: 4 units Nystatin (Nystop) 0 gm TOP TID [facility] Last Admin: 09/08/19 08:28 Dose: 1 applic Omeprazole (Omeprazole) 20 mg PO ACBREAKFAST [facility] Last Admin: 09/08/19 06:09 Dose: 20 mg Oxycodone HCl (Oxycodone) 5 mg PO TID PRN PRN Reason: PAIN Last Admin: 09/08/19 08:30 Dose: 5 mg Oxycodone/Acetaminophen (Percocet 325-5 Mg) 1 tab PO TID PRN PRN Reason: Pain (moderate 4-6) Last Admin: 09/08/19 08:29 Dose: 1 tab Pregabalin (Lyrica) 150 mg PO BID [facility] Last Admin: 09/08/19 08:27 Dose: 150 mg Simvastatin (Zocor) 20 mg PO BEDTIME [facility] Last Admin: 09/07/19 22:26 Dose: 20 mg Tamsulosin HCl (Flomax) 0.4 mg PO BID [facility] Last Admin: 09/08/19 08:26 Dose: 0.4 mg Discontinued Medications Allopurinol (Zyloprim) 300 mg PO DAILY [facility] Last Admin: 09/07/19 11:16 Dose: 300 mg Bumetanide (Bumex) 0.5 mg PO DAILY [facility] Last Admin: 09/07/19 11:17 Dose: 0.5 mg Carvedilol (Coreg) 12.5 mg PO BID [facility] Last Admin: 09/05/19 21:09 Dose: 12.5 mg Ceftriaxone Sodium (Rocephin) 1 gm IVPUSH Q24H [facility] Last Admin: 09/04/19 19:48 Dose: Not Given Ciprofloxacin (Ciprofloxacin Hcl) 250 mg PO BID [facility] Last Admin: 09/06/19 09:43 Dose: 250 mg Ceftriaxone Sodium 1 gm/ (Sodium Chloride) 50 mls @ 100 mls/hr IV Q24H [facility] Last Admin: 09/04/19 17:05 Dose: Not Given Sterile Water (Sterile Water For Injection) Confirm Administered Dose 20 mls @ as directed .ROUTE .[facility] Stop: 09/04/19 17:08 Last Admin: 09/04/19 17:40 Dose: Not Given Oxycodone HCl (Oxycodone) 5 mg PO TID PRN PRN Reason: PAIN Last Admin: 09/05/19 21:35 Dose: 5 mg Oxycodone/Acetaminophen (Percocet 325-5 Mg) 1 tab PO TID PRN PRN Reason: Pain (moderate 4-6) Last Admin: 09/05/19 21:34 Dose: 1 tab - Exam General: Alert. No: Oriented Neck: Supple Lungs: Clear to Auscultation, Normal Respiratory Effort Cardiovascular: Regular Rate, Murmurs (Systolic) GI/Abdominal Exam: Normal Bowel Sounds, Soft, Non-Tender Extremities: No Pedal Edema Sepsis Event Note - Evaluation Sepsis Screening Result: No Definite Risk - Focused Exam Vital Signs: Vital Signs Temp Pulse Pulse Resp BP BP Pulse Ox 09/08/19 08:27 149/79 H 09/08/19 08:24 84 144/79 H 09/08/19 08:00 98.2 F 84 20 149/79 H 92 L 09/07/19 22:15 98.9 F 82 20 133/66 94 L Date Exam was Performed: 09/08/19 Time Exam was Performed: 09:57 - Problem List & Annotations (1) Altered mental status SNOMED Code(s): 986536990 Code(s): R41.82 - ALTERED MENTAL STATUS, UNSPECIFIED Status: Acute Current Visit: No Qualifiers: Altered mental status type: unspecified Qualified Code(s): R41.82 - Altered mental status, unspecified (2) UTI (urinary tract infection) SNOMED Code(s): 23626949 Code(s): N39.0 - URINARY TRACT INFECTION, SITE NOT SPECIFIED Status: Acute Current Visit: No Qualifiers: Urinary tract infection type: site unspecified Hematuria presence: without hematuria Qualified Code(s): N39.0 - Urinary tract infection, site not specified - Problem List Review Problem List Initiated/Reviewed/Updated: Yes - My Orders Last 24 Hours: My Active Orders 09/08/19 09:00 allopurinoL [Zyloprim] 150 mg PO DAILY 09/08/19 09:57 Benzocaine/Docusate Sodium [Enemeez Plus Mini Enema] 1 each RECTAL ONETIME ONE 09/08/19 10:00 Lactulose [Cephulac] 20 gm PO Q6H - Plan Plan:: Acute encephalopathy with underlying dementia/recurrent falls This was likely triggered by UTI Frequent reorientation Physical and occupational therapy UTI Urine culture shows e coli, resistant to cipro - sens to keflex Treat with PO Keflex DM 2 Continue glargine and lispro Follow blood sugars Chronic back pain Continue pregabaline Hypertension better controlled Continue Coreg, Stop Bumex Added Norvasc Added as needed clonidine for systolic blood pressure above 160 Gout Decrease dose of Allopurinol given renal insufficiency CKD III avoid nephrotoxic agents Vantin and is slightly increasing, stop Bumex for now Hyperlipidemia treat with statin DVT prophylaxis Subcutaneous heparin Physical and occupational therapy Discussed discharge planning The patient will need senior care Nursing homes require COVID testing - pending
[2019-09-08] MEDS: Lactulose Soln 10 GM/15 ML 30 ML UD Cup PO SCH ×2 (10:25→18:32)
[2019-09-08] MEDS ORDERED: Lactulose Soln 10 GM/15 ML 30 ML UD Cup ONE (18:31)
[2019-09-08] MEDS: Finasteride 5 MG Tab PO SCH (20:15)
[2019-09-08] MEDS: Simvastatin 40 MG Tab PO SCH (20:15)
[2019-09-09] MEDS: Omeprazole 20 MG Cap.CR PO SCH (05:52)
[2019-09-09] MEDS: Heparin Sodium 5,000 Units/ML Vial SUBCUT SCH ×3 (05:52→21:15)
[2019-09-09 06:47] LABS: ANION GAP 14.2 mEq/L (7-13)
[2019-09-09] MEDS: Insulin Glarg,Human.Rec.Analog 100 Unit/ML SUBCUT SCH ×2 (09:11→20:51)
[2019-09-09] MEDS: Insulin Lispro 100 Units/ML 3 ML Vial SUBCUT SCH ×3 (09:11→17:18)
[2019-09-09] MEDS: Cephalexin 500 MG Cap PO SCH ×2 (09:12→21:06)
[2019-09-09] MEDS: amLODIPine 5 MG Tab PO SCH (09:12)
[2019-09-09] MEDS: oxyCODONE 5 MG Tab PO PRN ×3 (09:12→21:08)
[2019-09-09] MEDS: Acetaminophen/oxyCODONE 325-5 MG Tab PO PRN ×3 (09:13→21:08)
[2019-09-09] MEDS: Carvedilol 25 MG Tab PO SCH ×2 (09:14→17:18)
[2019-09-09] MEDS: DULoxetine 30 MG Cap PO SCH (09:14)
[2019-09-09] MEDS: Allopurinol 300 MG Tab PO SCH (09:14)
[2019-09-09] MEDS: Tamsulosin 0.4 MG Cap.ER PO SCH ×2 (09:15→21:06)
[2019-09-09] MEDS: Nystatin Topical Powder 30 GM Bottle TOP SCH ×3 (09:15→21:12)
--- NOTE | 2019-09-09 11:15 | PCM.PN ---
- General Info Date of Service: 09/09/19 Admission Dx/Problem (Free Text): acute encephalopathy Subjective Update: Mr. Hudson is an 79 year old male with past medical history significant for chronic kidney disease, diabetes mellitus, hyperlipidemia, dementia, hypertension who presented to the hospital with frequent falls and acute on chronic confusion, multiple episodes of falling. In the ED, patient was afebrile, hemodynamically stable. Lab was remarkable for sodium 134, anion gap of 16.4, and 19 creatinine 1.3. UA was positive for nitrites and leukocyte esterase. Chest x-ray showed no evidence of acute abnormalities and CT spine showed presence of hardware but otherwise no evidence of fractures. since admission remained stable but continues to be confused. Severity of confusion varies from mild to severe. Denies chest pain, shortness of breath, cough. Needs significant help from nursing staff with activities of daily living, frequent reorientation. Functional Status: Reports: Pain Controlled, Tolerating Diet - Review of Systems General: Reports: Weakness. Denies: Fever Pulmonary: Denies: Shortness of Breath Cardiovascular: Denies: Chest Pain, Edema Gastrointestinal: Denies: Abdominal Pain - Patient Data Vitals - Most Recent: Last Vital Signs Temp 97.9 F 09/09/19 08:00 Pulse 78 09/09/19 09:14 Resp 20 09/09/19 08:00 BP 147/59 H 09/09/19 09:14 Pulse Ox 96 09/09/19 08:00 Weight - Most Recent: 231 lb I&O - Last 24 Hours: Intake & Output 09/08/19 09/09/19 09/09/19 22:59 06:59 14:59 Intake Total 750 Balance 750 Lab Results Last 24 Hours: Laboratory Results - last 24 hr 09/08/19 09/08/19 09/08/19 Range/Units 11:56 17:05 20:50 WBC (5.0-10.0) 10^3/uL RBC (4.6-6.2) 10^6/uL Hgb (14.0-18.0) g/dL Hct (40.0-54.0) % MCV (80-100) fL MCH (27.0-34.0) pg MCHC (33.0-35.0) g/dL Plt Count (150-450) 10^3/uL Neut % (Auto) (42.2-75.2) % Lymph % (Auto) (20.5-50.1) % Frio % (Auto) (2-8) % Eos % (Auto) (1.0-3.0) % Baso % (Auto) (0.0-1.0) % Sodium (136-145) mmol/L Potassium (3.5-5.1) mmol/L Chloride (98-107) mmol/L Carbon Dioxide (21-32) mmol/L Anion Gap (7-13) mEq/L BUN (7-18) mg/dL Creatinine (0.70-1.30) mg/dL Est Cr Clr Drug Dosing mL/min Estimated GFR (MDRD) Glucose (74-99) mg/dL POC Glucose 188 H 144 H 159 H (83-110) mg/dl Calcium (8.5-10.1) mg/dL 09/09/19 09/09/19 09/09/19 Range/Units 05:45 05:45 07:52 WBC 9.1 (5.0-10.0) 10^3/uL RBC 3.51 L (4.6-6.2) 10^6/uL Hgb 10.8 L (14.0-18.0) g/dL Hct 32.0 L (40.0-54.0) % MCV 91.2 (80-100) fL MCH 30.8 (27.0-34.0) pg MCHC 33.8 (33.0-35.0) g/dL Plt Count 314 (150-450) 10^3/uL Neut % (Auto) 65.1 (42.2-75.2) % Lymph % (Auto) 21.2 (20.5-50.1) % Frio % (Auto) 8.4 H (2-8) % Eos % (Auto) 4.5 H (1.0-3.0) % Baso % (Auto) 0.8 (0.0-1.0) % Sodium 137 (136-145) mmol/L Potassium 4.2 (3.5-5.1) mmol/L Chloride 98 (98-107) mmol/L Carbon Dioxide 29 (21-32) mmol/L Anion Gap 14.2 H (7-13) mEq/L BUN 32 H (7-18) mg/dL Creatinine 1.78 H (0.70-1.30) mg/dL Est Cr Clr Drug Dosing 33.10 mL/min Estimated GFR (MDRD) 37 Glucose 109 H (74-99) mg/dL POC Glucose 131 H (83-110) mg/dl Calcium 9.4 (8.5-10.1) mg/dL 09/09/19 Range/Units 10:52 WBC (5.0-10.0) 10^3/uL RBC (4.6-6.2) 10^6/uL Hgb (14.0-18.0) g/dL Hct (40.0-54.0) % MCV (80-100) fL MCH (27.0-34.0) pg MCHC (33.0-35.0) g/dL Plt Count (150-450) 10^3/uL Neut % (Auto) (42.2-75.2) % Lymph % (Auto) (20.5-50.1) % Frio % (Auto) (2-8) % Eos % (Auto) (1.0-3.0) % Baso % (Auto) (0.0-1.0) % Sodium (136-145) mmol/L Potassium (3.5-5.1) mmol/L Chloride (98-107) mmol/L Carbon Dioxide (21-32) mmol/L Anion Gap (7-13) mEq/L BUN (7-18) mg/dL Creatinine (0.70-1.30) mg/dL Est Cr Clr Drug Dosing mL/min Estimated GFR (MDRD) Glucose (74-99) mg/dL POC Glucose 233 H (83-110) mg/dl Calcium (8.5-10.1) mg/dL Med Orders - Current: Current Medications Acetaminophen (Tylenol) 650 mg PO Q4H PRN PRN Reason: Pain (Mild 1-3)/fever Allopurinol (Zyloprim) 150 mg PO DAILY [facility] Last Admin: 09/09/19 09:14 Dose: 150 mg Amlodipine Besylate (Norvasc) 5 mg PO DAILY [facility] Last Admin: 09/09/19 09:12 Dose: 5 mg Carvedilol (Coreg) 12.5 mg PO BID@0800,1800 [facility] Last Admin: 09/09/19 09:14 Dose: 12.5 mg Cephalexin (Keflex) 500 mg PO BID [facility] Last Admin: 09/09/19 09:12 Dose: 500 mg Clonidine HCl (Catapres) 0.1 mg PO Q8H PRN PRN Reason: sbp > 160 Last Admin: 09/05/19 21:35 Dose: 0.1 mg Duloxetine HCl (Cymbalta) 30 mg PO DAILY [facility] Last Admin: 09/09/19 09:14 Dose: 30 mg Finasteride (Proscar) 5 mg PO BEDTIME [facility] Last Admin: 09/08/19 20:15 Dose: 5 mg Heparin Sodium (Porcine) (Heparin Sodium) 5,000 units SUBCUT Q8HR [facility] Last Admin: 09/09/19 05:52 Dose: 5,000 units Insulin Glargine (Lantus) 30 unit SUBCUT BEDTIME [facility] Last Admin: 09/08/19 22:09 Dose: 30 units Insulin Glargine (Lantus) 35 unit SUBCUT DAILY [facility] Last Admin: 09/09/19 09:11 Dose: 35 units Insulin Human Lispro (Humalog) 4 unit SUBCUT TIDMEALS [facility] Last Admin: 09/09/19 09:11 Dose: 4 units Nystatin (Nystop) 0 gm TOP TID [facility] Last Admin: 09/09/19 09:15 Dose: 1 applic Omeprazole (Omeprazole) 20 mg PO ACBREAKFAST [facility] Last Admin: 09/09/19 05:52 Dose: 20 mg Oxycodone HCl (Oxycodone) 5 mg PO TID PRN PRN Reason: PAIN Last Admin: 09/09/19 09:12 Dose: 5 mg Oxycodone/Acetaminophen (Percocet 325-5 Mg) 1 tab PO TID PRN PRN Reason: Pain (moderate 4-6) Last Admin: 09/09/19 09:13 Dose: 1 tab Pregabalin (Lyrica) 150 mg PO BID [facility] Last Admin: 09/09/19 09:13 Dose: 150 mg Simvastatin (Zocor) 20 mg PO BEDTIME [facility] Last Admin: 09/08/19 20:15 Dose: 20 mg Tamsulosin HCl (Flomax) 0.4 mg PO BID [facility] Last Admin: 09/09/19 09:15 Dose: 0.4 mg Discontinued Medications Allopurinol (Zyloprim) 300 mg PO DAILY [facility] Last Admin: 09/07/19 11:16 Dose: 300 mg Bumetanide (Bumex) 0.5 mg PO DAILY [facility] Last Admin: 09/07/19 11:17 Dose: 0.5 mg Carvedilol (Coreg) 12.5 mg PO BID [facility] Last Admin: 09/05/19 21:09 Dose: 12.5 mg Ceftriaxone Sodium (Rocephin) 1 gm IVPUSH Q24H [facility] Last Admin: 09/04/19 19:48 Dose: Not Given Ciprofloxacin (Ciprofloxacin Hcl) 250 mg PO BID [facility] Last Admin: 09/06/19 09:43 Dose: 250 mg Docusate Sodium/Benzocaine (Enemeez Plus Mini Enema) 1 each RECTAL ONETIME ONE Stop: 09/08/19 09:58 Last Admin: 09/08/19 10:25 Dose: 1 each Ceftriaxone Sodium 1 gm/ (Sodium Chloride) 50 mls @ 100 mls/hr IV Q24H [facility] Last Admin: 09/04/19 17:05 Dose: Not Given Sterile Water (Sterile Water For Injection) Confirm Administered Dose 20 mls @ as directed .ROUTE .[facility] Stop: 09/04/19 17:08 Last Admin: 09/04/19 17:40 Dose: Not Given Lactulose (Cephulac) 20 gm PO Q6H [facility] Stop: 09/08/19 16:01 Last Admin: 09/08/19 18:32 Dose: 20 gm Lactulose (Cephulac) Confirm Administered Dose 20 gm .ROUTE .[facility] Stop: 09/08/19 18:32 Last Admin: 09/08/19 18:49 Dose: Not Given Oxycodone HCl (Oxycodone) 5 mg PO TID PRN PRN Reason: PAIN Last Admin: 09/05/19 21:35 Dose: 5 mg Oxycodone/Acetaminophen (Percocet 325-5 Mg) 1 tab PO TID PRN PRN Reason: Pain (moderate 4-6) Last Admin: 09/05/19 21:34 Dose: 1 tab - Exam General: Alert, Oriented Neck: Supple Lungs: Clear to Auscultation, Normal Respiratory Effort Cardiovascular: Regular Rate, Regular Rhythm GI/Abdominal Exam: Normal Bowel Sounds, Soft, Non-Tender, Other (obese) Extremities: No Pedal Edema Neurological: No New Focal Deficit Psy/Mental Status: Alert, Normal Affect, Normal Mood Sepsis Event Note - Evaluation Sepsis Screening Result: No Definite Risk - Focused Exam Vital Signs: Vital Signs Temp Pulse Pulse Resp BP BP BP 09/09/19 09:14 78 147/59 H 09/09/19 09:12 147/59 H 09/09/19 08:00 97.9 F 78 20 147/59 H 09/09/19 00:00 97.4 F 77 18 110/50 L Pulse Ox 09/09/19 09:14 09/09/19 09:12 09/09/19 08:00 96 09/09/19 00:00 93 L Date Exam was Performed: 09/09/19 Time Exam was Performed: 11:16 - Problem List & Annotations (1) Altered mental status SNOMED Code(s): 663030301 Code(s): R41.82 - ALTERED MENTAL STATUS, UNSPECIFIED Status: Acute Current Visit: No Qualifiers: Altered mental status type: unspecified Qualified Code(s): R41.82 - Altered mental status, unspecified (2) UTI (urinary tract infection) SNOMED Code(s): 40827424 Code(s): N39.0 - URINARY TRACT INFECTION, SITE NOT SPECIFIED Status: Acute Current Visit: No Qualifiers: Urinary tract infection type: site unspecified Hematuria presence: without hematuria Qualified Code(s): N39.0 - Urinary tract infection, site not specified - Problem List Review Problem List Initiated/Reviewed/Updated: Yes - Plan Plan:: Acute encephalopathy with underlying dementia/recurrent falls This was likely triggered by UTI Frequent reorientation Physical and occupational therapy UTI Urine culture shows e coli, resistant to cipro - sens to keflex Treat with PO Keflex DM 2 Continue glargine and lispro Follow blood sugars Chronic back pain Continue pregabaline Hypertension better controlled Continue Coreg, Stopped Bumex started Norvasc Added as needed clonidine for systolic blood pressure above 160 Gout Decreased dose of Allopurinol given renal insufficiency CKD III avoid nephrotoxic agents creatinine was slightly increasing, stopped Bumex Hyperlipidemia treat with statin DVT prophylaxis Subcutaneous heparin Physical and occupational therapy Discussed discharge planning The patient will need long term Nursing homes require COVID testing - negative
[2019-09-09] MEDS ORDERED: Lactulose Soln 10 GM/15 ML 30 ML UD Cup PO PRN (12:01)
[2019-09-09] MEDS: Polyethylene Glycol 3350 Powder 17 GM Packet PO SCH (13:38)
[2019-09-09] MEDS ORDERED: Insulin Glarg,Human.Rec.Analog 100 Unit/ML SUBCUT ONE (20:51)
[2019-09-09] MEDS: Finasteride 5 MG Tab PO SCH (21:06)
[2019-09-09] MEDS: Simvastatin 40 MG Tab PO SCH (21:07)
[2019-09-10] MEDS: Heparin Sodium 5,000 Units/ML Vial SUBCUT SCH (05:34)
[2019-09-10] MEDS: Omeprazole 20 MG Cap.CR PO SCH (05:35)
[2019-09-10 08:22] VITALS: BP 145/55; PULSE 78
[2019-09-10] MEDS: Polyethylene Glycol 3350 Powder 17 GM Packet PO SCH (08:40)
[2019-09-10] MEDS: DULoxetine 30 MG Cap PO SCH (08:43)
[2019-09-10] MEDS: Carvedilol 25 MG Tab PO SCH (08:43)
[2019-09-10] MEDS: Cephalexin 500 MG Cap PO SCH (08:44)
[2019-09-10] MEDS: Allopurinol 300 MG Tab PO SCH (08:44)
[2019-09-10] MEDS: Tamsulosin 0.4 MG Cap.ER PO SCH (08:44)
[2019-09-10] MEDS: Nystatin Topical Powder 30 GM Bottle TOP SCH (08:45)
[2019-09-10] MEDS: amLODIPine 5 MG Tab PO SCH (08:45)
[2019-09-10] MEDS: Insulin Lispro 100 Units/ML 3 ML Vial SUBCUT SCH (09:20)
[2019-09-10] MEDS: Insulin Glarg,Human.Rec.Analog 100 Unit/ML SUBCUT SCH (09:22)
--- NOTE | 2019-09-10 10:05 | PCM.DCSUM1 ---
Discharge Summary - Hospital Course Free Text/Narrative:: Mr. Hudson is an 79 year old male with past medical history significant for chronic kidney disease, diabetes mellitus, hyperlipidemia, dementia, hypertension who presented to the hospital with frequent falls and acute on chronic confusion, multiple episodes of falling. In the ED, patient was afebrile, hemodynamically stable. Lab was remarkable for sodium 134, anion gap of 16.4, and 19 creatinine 1.3. UA was positive for nitrites and leukocyte esterase. Chest x-ray showed no evidence of acute abnormalities and CT spine showed presence of hardware but otherwise no evidence of fractures. Acute encephalopathy with underlying dementia/recurrent falls This was likely triggered by UTI Frequent reorientation stable UTI Urine culture shows e coli, resistant to cipro - sens to keflex Treat with PO Keflex for a few more days DM 2 Continue glargine and lispro Follow blood sugars Chronic back pain Continue pregabaline Hypertension better controlled with newly started norvasc Continue Coreg, Stopped Bumex Gout Decreased dose of Allopurinol given renal insufficiency CKD III avoid nephrotoxic agents creatinine was slightly increasing, stopped Bumex Hyperlipidemia treat with statin longterm required COVID testing - negative Diagnosis: Stroke: No - Discharge Data Discharge Date: 09/10/19 Discharge Disposition: DC/Tfer to SNF 03 Condition: Good - Referral to Home Health Primary Care Physician: Andrey Morataya MD - Discharge Diagnosis/Problem(s) (1) Altered mental status SNOMED Code(s): 369529669 ICD Code: R41.82 - ALTERED MENTAL STATUS, UNSPECIFIED Status: Acute Current Visit: No Qualifiers: Altered mental status type: unspecified Qualified Code(s): R41.82 - Altered mental status, unspecified (2) UTI (urinary tract infection) SNOMED Code(s): 11159006 ICD Code: N39.0 - URINARY TRACT INFECTION, SITE NOT SPECIFIED Status: Acute Current Visit: No Qualifiers: Urinary tract infection type: site unspecified Hematuria presence: without hematuria Qualified Code(s): N39.0 - Urinary tract infection, site not specified - Patient Summary/Data Consults: Consultations 09/04/19 16:39 OT Evaluation and Treatment [CONS] Routine PT Evaluation and Treatment [CONS] Routine - Patient Instructions Diet: Diabetic Diet Activity: As Tolerated - Discharge Plan *PRESCRIPTION DRUG MONITORING PROGRAM REVIEWED*: Not Applicable *COPY OF PRESCRIPTION DRUG MONITORING REPORT IN PATIENT PREMA: Not Applicable Prescriptions/Med Rec: Acetaminophen/oxyCODONE [Percocet 325-5 MG] 1 each PO Q6H PRN #32 tab PRN Reason: moderate pain allopurinoL [Zyloprim] 150 mg PO DAILY #30 tablet amLODIPine [Norvasc] 5 mg PO DAILY #30 tablet cephALEXin [Keflex] 500 mg PO BID #6 cap polyethylene glycoL 3350 [MiraLAX] 17 gm PO DAILY #30 packet Home Medications: Home Meds Finasteride [Proscar] 5 mg PO BEDTIME 12/09/16 [History] Omeprazole 20 mg PO DAILY 12/09/16 [History] Pregabalin [Lyrica] 150 mg PO BID 12/09/16 [History] Simvastatin 20 mg PO BEDTIME 12/09/16 [History] Tamsulosin [Flomax] 0.4 mg PO BID 12/09/16 [History] Acetaminophen [Tylenol Arthritis] 1,300 mg PO DAILY PRN 10/27/17 [History] DULoxetine HCl [Duloxetine HCl] 30 mg PO DAILY 10/27/17 [History] Multivitamins,Therapeutic [Thera] 1 tab PO DAILY 10/27/17 [History] Insulin Detemir [Levemir Flextouch] 30 units SQ BEDTIME 09/04/19 [History] Insulin Detemir [Levemir Flextouch] 35 units SQ DAILY 09/04/19 [History] Insulin Lispro [Humalog] 4 units SQ TID 09/04/19 [History] carvediloL [Carvedilol] 12.5 mg PO BID 09/04/19 [History] Acetaminophen/oxyCODONE [Percocet 325-5 MG] 1 each PO Q6H PRN #32 tab 09/10/19 [ Rx] allopurinoL [Zyloprim] 150 mg PO DAILY #30 tablet 09/10/19 [Rx] amLODIPine [Norvasc] 5 mg PO DAILY #30 tablet 09/10/19 [Rx] cephALEXin [Keflex] 500 mg PO BID #6 cap 09/10/19 [Rx] polyethylene glycoL 3350 [MiraLAX] 17 gm PO DAILY #30 packet 09/10/19 [Rx] Referrals: Andrey Morataya MD [Primary Care Provider] - - Discharge Summary/Plan Comment DC Time >30 min.: No - General Info Date of Service: 09/10/19 Admission Dx/Problem (Free Text: acute encephalopathy Subjective Update: feeling well no new complaints continued confusion but no agitation, - Patient Data Vitals - Most Recent: Last Vital Signs Temp 98.2 F 09/10/19 08:21 Pulse 78 09/10/19 08:43 Resp 20 09/10/19 08:21 BP 145/55 H 09/10/19 08:45 Pulse Ox 98 09/10/19 08:21 Weight - Most Recent: 231 lb I&O - Last 24 hours: Intake & Output 09/09/19 09/10/19 09/10/19 22:59 06:59 14:59 Intake Total 75 100 Balance 75 100 Lab Results - Last 24 hrs: Laboratory Results - last 24 hr 09/09/19 09/09/19 09/09/19 Range/Units 10:52 16:50 20:47 POC Glucose 233 H 120 H 63 L (83-110) mg/dl 09/09/19 09/10/19 Range/Units 21:26 08:10 POC Glucose 106 113 H (83-110) mg/dl Med Orders - Current: Current Medications Acetaminophen (Tylenol) 650 mg PO Q4H PRN PRN Reason: Pain (Mild 1-3)/fever Allopurinol (Zyloprim) 150 mg PO DAILY [facility] Last Admin: 09/10/19 08:44 Dose: 150 mg Amlodipine Besylate (Norvasc) 5 mg PO DAILY [facility] Last Admin: 09/10/19 08:45 Dose: 5 mg Carvedilol (Coreg) 12.5 mg PO BID@0800,1800 [facility] Last Admin: 09/10/19 08:43 Dose: 12.5 mg Cephalexin (Keflex) 500 mg PO BID [facility] Last Admin: 09/10/19 08:44 Dose: 500 mg Clonidine HCl (Catapres) 0.1 mg PO Q8H PRN PRN Reason: sbp > 160 Last Admin: 09/05/19 21:35 Dose: 0.1 mg Duloxetine HCl (Cymbalta) 30 mg PO DAILY [facility] Last Admin: 09/10/19 08:43 Dose: 30 mg Finasteride (Proscar) 5 mg PO BEDTIME [facility] Last Admin: 09/09/19 21:06 Dose: 5 mg Heparin Sodium (Porcine) (Heparin Sodium) 5,000 units SUBCUT Q8HR [facility] Last Admin: 09/10/19 05:34 Dose: 5,000 units Insulin Glargine (Lantus) 30 unit SUBCUT BEDTIME [facility] Last Admin: 09/09/19 20:51 Dose: Not Given Insulin Glargine (Lantus) 35 unit SUBCUT DAILY [facility] Last Admin: 09/10/19 09:22 Dose: 35 units Insulin Human Lispro (Humalog) 4 unit SUBCUT TIDMEALS [facility] Last Admin: 09/10/19 09:20 Dose: 4 units Lactulose (Cephulac) 20 gm PO BID PRN PRN Reason: constipation Nystatin (Nystop) 0 gm TOP TID [facility] Last Admin: 09/10/19 08:45 Dose: 1 applic Omeprazole (Omeprazole) 20 mg PO ACBREAKFAST [facility] Last Admin: 09/10/19 05:35 Dose: 20 mg Oxycodone HCl (Oxycodone) 5 mg PO TID PRN PRN Reason: PAIN Last Admin: 09/09/19 21:08 Dose: 5 mg Oxycodone/Acetaminophen (Percocet 325-5 Mg) 1 tab PO TID PRN PRN Reason: Pain (moderate 4-6) Last Admin: 09/09/19 21:08 Dose: 1 tab Polyethylene Glycol (Miralax) 17 gm PO DAILY [facility] Last Admin: 09/10/19 08:40 Dose: 17 gm Pregabalin (Lyrica) 150 mg PO BID [facility] Last Admin: 09/10/19 08:45 Dose: 150 mg Senna/Docusate Sodium (Senna Plus) 1 tab PO BID [facility] Last Admin: 09/10/19 08:45 Dose: 1 tab Simvastatin (Zocor) 20 mg PO BEDTIME [facility] Last Admin: 09/09/19 21:07 Dose: 20 mg Tamsulosin HCl (Flomax) 0.4 mg PO BID [facility] Last Admin: 09/10/19 08:44 Dose: 0.4 mg Discontinued Medications Allopurinol (Zyloprim) 300 mg PO DAILY [facility] Last Admin: 09/07/19 11:16 Dose: 300 mg Bumetanide (Bumex) 0.5 mg PO DAILY [facility] Last Admin: 09/07/19 11:17 Dose: 0.5 mg Carvedilol (Coreg) 12.5 mg PO BID [facility] Last Admin: 09/05/19 21:09 Dose: 12.5 mg Ceftriaxone Sodium (Rocephin) 1 gm IVPUSH Q24H [facility] Last Admin: 09/04/19 19:48 Dose: Not Given Ciprofloxacin (Ciprofloxacin Hcl) 250 mg PO BID [facility] Last Admin: 09/06/19 09:43 Dose: 250 mg Docusate Sodium/Benzocaine (Enemeez Plus Mini Enema) 1 each RECTAL ONETIME ONE Stop: 09/08/19 09:58 Last Admin: 09/08/19 10:25 Dose: 1 each Ceftriaxone Sodium 1 gm/ (Sodium Chloride) 50 mls @ 100 mls/hr IV Q24H [facility] Last Admin: 09/04/19 17:05 Dose: Not Given Sterile Water (Sterile Water For Injection) Confirm Administered Dose 20 mls @ as directed .ROUTE .STK-MED ONE Stop: 09/04/19 17:08 Last Admin: 09/04/19 17:40 Dose: Not Given Insulin Glargine (Lantus) 20 unit SUBCUT ONETIME ONE Stop: 09/09/19 20:52 Last Admin: 09/09/19 21:04 Dose: 20 units Lactulose (Cephulac) 20 gm PO Q6H [facility] Stop: 09/08/19 16:01 Last Admin: 09/08/19 18:32 Dose: 20 gm Lactulose (Cephulac) Confirm Administered Dose 20 gm .ROUTE .STK-MED ONE Stop: 09/08/19 18:32 Last Admin: 09/08/19 18:49 Dose: Not Given Oxycodone HCl (Oxycodone) 5 mg PO TID PRN PRN Reason: PAIN Last Admin: 09/05/19 21:35 Dose: 5 mg Oxycodone/Acetaminophen (Percocet 325-5 Mg) 1 tab PO TID PRN PRN Reason: Pain (moderate 4-6) Last Admin: 09/05/19 21:34 Dose: 1 tab - Exam General: Reports: Alert. Denies: Oriented Neck: Reports: Supple Lungs: Reports: Clear to Auscultation, Normal Respiratory Effort Cardiovascular: Reports: Regular Rate, Regular Rhythm GI/Abdominal Exam: Normal Bowel Sounds, Soft, Non-Tender Extremities: No: Pedal Edema
== END 2019-09-10 10:50 | DRG 690 ==
LOC: DL.ED 13:41 → DL.MS 16:13 → UNDOADMIN 16:13 → DL.MS 09-05 18:50 → UNDODISIN 09-10 10:50
PROVIDERS: ADMIT Internal Medicine; ATTEND Internal Medicine
DX: R41.82 Altered mental status, unspecified (principal); N39.0 Urinary tract infection, site not specified; G93.49 Other encephalopathy; Z16.23 Resistance to quinolones and fluoroquinolones; E11.22 Type 2 diabetes mellitus with diabetic chronic kidney disease; I12.9 Hypertensive chronic kidney disease with stage 1 through stage 4 chronic kidney disease, or unspecified chronic kidney disease; E78.5 Hyperlipidemia, unspecified; F03.90 Unspecified dementia, unspecified severity, without behavioral disturbance, psychotic disturbance, mood disturbance, and anxiety; M54.41 Lumbago with sciatica, right side; M54.9 Dorsalgia, unspecified; N18.3 Chronic kidney disease, stage 3 (moderate); G89.29 Other chronic pain; H54.7 Unspecified visual loss; R29.6 Repeated falls; I10 Essential (primary) hypertension; N40.1 Benign prostatic hyperplasia with lower urinary tract symptoms; N39.498 Other specified urinary incontinence; Z96.659 Presence of unspecified artificial knee joint; F32.9 Major depressive disorder, single episode, unspecified; M10.9 Gout, unspecified; E11.9 Type 2 diabetes mellitus without complications; B96.20 Unspecified Escherichia coli [E. coli] as the cause of diseases classified elsewhere; E78.00 Pure hypercholesterolemia, unspecified; G30.9 Alzheimer's disease, unspecified; F02.80 Dementia in other diseases classified elsewhere, unspecified severity, without behavioral disturbance, psychotic disturbance, mood disturbance, and anxiety; K21.9 Gastro-esophageal reflux disease without esophagitis; Z87.891 Personal history of nicotine dependence; Z79.4 Long term (current) use of insulin; Z79.84 Long term (current) use of oral hypoglycemic drugs; Z79.899 Other long term (current) drug therapy; Z20.828 Contact with and (suspected) exposure to other viral communicable diseases
CPT/HCPCS: 36415 ×2; 71045; 72131; 80048; 80053; 81001; 82962 ×3; 83880; 84484; 85025 ×2; 87086; 87088; 87186; 93005; 99284; 99285; A9270 ×12; J1644; U0002

== ENCOUNTER 2021-06-11 19:21 | Emergency (ER) | payer MEDICARE, BC ==
[2021-06-11 19:54] LABS: SODIUM,NA 139 mmol/L (136-145)
[2021-06-11 20:11] LABS: ANION GAP 14.6 mEq/L (7-13); CHLORIDE,CL 101 mmol/L (98-107)
== END 2021-06-11 22:50 ==
LOC: DL.ED 19:21
DX: S01.01XA Laceration without foreign body of scalp, initial encounter (principal); S00.83XA Contusion of other part of head, initial encounter; L89.019 Pressure ulcer of right elbow, unspecified stage; E78.00 Pure hypercholesterolemia, unspecified; I10 Essential (primary) hypertension; K21.9 Gastro-esophageal reflux disease without esophagitis; N40.1 Benign prostatic hyperplasia with lower urinary tract symptoms; N39.498 Other specified urinary incontinence; G30.9 Alzheimer's disease, unspecified; F02.80 Dementia in other diseases classified elsewhere, unspecified severity, without behavioral disturbance, psychotic disturbance, mood disturbance, and anxiety; E11.9 Type 2 diabetes mellitus without complications; Z79.4 Long term (current) use of insulin; Z79.899 Other long term (current) drug therapy; W19.XXXA Unspecified fall, initial encounter; Y92.129 Unspecified place in nursing home as the place of occurrence of the external cause
CPT/HCPCS: 12001; 36415; 70450; 70486; 71250; 72125; 74176; 80053; 83880; 84484; 85025; 85610; 86850; 86900; 86901; 93005; 99284-25

== ENCOUNTER 2022-04-10 05:29 | Inpatient (IN) | payer MEDICARE, BC ==
[2022-04-10 06:31] LABS: ANION GAP 14.2 mEq/L (7-13)
[2022-04-10] MEDS ORDERED: Sodium Chloride 0.9% 1,000 ML IV ONE (06:32)
[2022-04-10] MEDS ORDERED: cefTRIAXone 2 GM in Sodium Chloride 0.9% 100 ML IV ONE (06:32)
[2022-04-10] MEDS: Sodium Chloride 0.9% 10 ML Syringe FLUSH PRN (06:50)
[2022-04-10] MEDS ORDERED: Magnesium Hydroxide 400 MG/5 ML Susp 30 ML Cup PO PRN (09:14)
[2022-04-10] MEDS ORDERED: Ondansetron 4 MG/2 ML SDV IVPUSH PRN (09:14)
[2022-04-10] MEDS ORDERED: HYDROmorphone 0.5 MG/0.5 ML Syringe IVPUSH PRN (09:14)
[2022-04-10] MEDS ORDERED: Albuterol/Ipratropium 3.0-0.5 MG/3 ML Neb Soln NEB PRN (09:14)
[2022-04-10] MEDS ORDERED: Polyethylene Glycol 3350 Powder 17 GM Packet PO PRN (09:14)
[2022-04-10] MEDS ORDERED: guaiFENesin/Dextromethorphan 100-10 MG/5 ML Soln 5 ML Cup PO PRN (09:18)
[2022-04-10] MEDS ORDERED: Azithromycin 500 MG in Sodium Chloride 0.9% 250 ML IV ONE (11:13)
[2022-04-10] MEDS: Acetaminophen 325 MG Tab PO PRN (16:53)
[2022-04-10] MEDS ORDERED: Glucagon,Human Recombinant 1 MG Vial IM PRN (16:58)
[2022-04-10] MEDS ORDERED: 50% Dextrose in Water 50 ML Syringe IVPUSH PRN (16:58)
[2022-04-10] MEDS: Insulin Lispro 100 Units/ML 3 ML Vial SUBCUT SCH (18:30)
[2022-04-11] MEDS: Lactated Ringers 1,000 ML IV SCH ×2 (01:30→23:00)
[2022-04-11 06:49] LABS: ANION GAP 15.1 mEq/L (7-13)
[2022-04-11] MEDS: Insulin Lispro 100 Units/ML 3 ML Vial SUBCUT SCH ×3 (08:34→17:16)
[2022-04-11] MEDS: Azithromycin 500 MG in Sodium Chloride 0.9% 250 ML IV SCH (08:35)
[2022-04-11] MEDS ORDERED: Nystatin Topical Powder 30 GM Bottle TOP PRN (08:50)
[2022-04-11] MEDS ORDERED: Bisacodyl 10 MG Supp RECTAL PRN (08:52)
[2022-04-11] MEDS ORDERED: Calcium Carbonate 500 MG Tab.Chew PO PRN (08:52)
[2022-04-11] MEDS: DULoxetine 30 MG Cap PO SCH (10:41)
[2022-04-11] MEDS: Cholecalciferol (Vitamin D3) 25 MCG Tab PO SCH (10:41)
[2022-04-11] MEDS: Multivitamins with Iron/Calcium/Folic Acid/Minerals Tab PO SCH (10:41)
[2022-04-11] MEDS: Ferrous Sulfate 325 MG Tab PO SCH (10:41)
[2022-04-11] MEDS: Pantoprazole 40 MG Tab.CR PO SCH (10:42)
[2022-04-11] MEDS: Polyvinyl Alcohol 1.4% Ophth Soln 15 ML Bottle EYEBOTH SCH ×2 (10:42→20:04)
[2022-04-11] MEDS: risperiDONE 0.5 MG Tab PO SCH (10:42)
[2022-04-11] MEDS: Loperamide 2 MG Cap PO PRN ×2 (10:42→20:03)
[2022-04-11] MEDS: Carvedilol 25 MG Tab PO SCH ×2 (10:46→20:04)
[2022-04-11] MEDS: Atropine 1% Ophth Soln 5 ML BOTTLE SL PRN ×2 (10:58→20:05)
[2022-04-11] MEDS: Potassium Chloride 20 MEQ in Premix Bag 1 BAG IV SCH ×2 (11:09→20:04)
[2022-04-11] MEDS: Simvastatin 10 MG Tab PO SCH (20:03)
[2022-04-11] MEDS: Finasteride 5 MG Tab PO SCH (20:04)
[2022-04-11] MEDS: Mirtazapine 15 MG Tab PO SCH (20:05)
[2022-04-11] MEDS: Acetaminophen 325 MG Tab PO PRN (21:10)
[2022-04-11] MEDS ORDERED: Potassium Chloride 20 MEQ in Premix Bag 1 BAG IV SCH (21:30)
[2022-04-11] MEDS ORDERED: Lactated Ringers 1,000 ML IV SCH (23:01)
[2022-04-12] MEDS: Loperamide 2 MG Cap PO PRN ×2 (00:33→21:11)
[2022-04-12 07:14] LABS: ANION GAP 12.8 mEq/L (7-13)
[2022-04-12] MEDS: Insulin Lispro 100 Units/ML 3 ML Vial SUBCUT SCH ×3 (08:27→17:22)
[2022-04-12] MEDS: Insulin Glarg,Human.Rec.Analog 100 Unit/ML SUBCUT SCH ×2 (08:28→21:12)
[2022-04-12] MEDS: Ferrous Sulfate 325 MG Tab PO SCH (08:31)
[2022-04-12] MEDS: risperiDONE 0.5 MG Tab PO SCH (08:33)
[2022-04-12] MEDS: Cholecalciferol (Vitamin D3) 25 MCG Tab PO SCH (08:33)
[2022-04-12] MEDS: Carvedilol 25 MG Tab PO SCH ×2 (08:33→21:11)
[2022-04-12] MEDS: Pantoprazole 40 MG Tab.CR PO SCH (08:33)
[2022-04-12] MEDS: Multivitamins with Iron/Calcium/Folic Acid/Minerals Tab PO SCH (08:35)
[2022-04-12] MEDS: DULoxetine 30 MG Cap PO SCH (08:35)
[2022-04-12] MEDS: Polyvinyl Alcohol 1.4% Ophth Soln 15 ML Bottle EYEBOTH SCH ×2 (08:43→21:12)
[2022-04-12] MEDS: Azithromycin 500 MG in Sodium Chloride 0.9% 250 ML IV SCH (09:17)
[2022-04-12] MEDS: cefTRIAXone 1 GM in Sodium Chloride 0.9% 50 ML IV SCH (16:57)
[2022-04-12] MEDS: Mirtazapine 15 MG Tab PO SCH (21:10)
[2022-04-12] MEDS: Simvastatin 10 MG Tab PO SCH (21:11)
[2022-04-12] MEDS: Finasteride 5 MG Tab PO SCH (21:11)
[2022-04-13] MEDS: Insulin Lispro 100 Units/ML 3 ML Vial SUBCUT SCH ×3 (08:37→16:47)
[2022-04-13] MEDS: Carvedilol 25 MG Tab PO SCH ×3 (09:37→21:31)
[2022-04-13] MEDS: Pantoprazole 40 MG Tab.CR PO SCH ×2 (09:38→10:48)
[2022-04-13] MEDS: Multivitamins with Iron/Calcium/Folic Acid/Minerals Tab PO SCH ×2 (09:38→10:48)
[2022-04-13] MEDS: Cholecalciferol (Vitamin D3) 25 MCG Tab PO SCH ×2 (09:39→10:48)
[2022-04-13] MEDS: DULoxetine 30 MG Cap PO SCH ×2 (09:39→10:49)
[2022-04-13] MEDS: risperiDONE 0.5 MG Tab PO SCH ×2 (09:40→10:48)
[2022-04-13] MEDS: Ferrous Sulfate 325 MG Tab PO SCH ×2 (09:40→10:48)
[2022-04-13] MEDS: Insulin Glarg,Human.Rec.Analog 100 Unit/ML SUBCUT SCH ×2 (09:41→21:31)
[2022-04-13] MEDS: Azithromycin 500 MG in Sodium Chloride 0.9% 250 ML IV SCH (09:42)
[2022-04-13] MEDS: Polyvinyl Alcohol 1.4% Ophth Soln 15 ML Bottle EYEBOTH SCH ×2 (09:42→21:31)
[2022-04-13] MEDS ORDERED: Ziprasidone Mesylate 20 MG Vial IM PRN (10:46)
[2022-04-13] MEDS: cefTRIAXone 1 GM in Sodium Chloride 0.9% 50 ML IV SCH (16:47)
[2022-04-13] MEDS: Sodium Chloride 0.9% 10 ML Syringe FLUSH PRN (16:48)
[2022-04-13] MEDS: Finasteride 5 MG Tab PO SCH (21:31)
[2022-04-13] MEDS: Mirtazapine 15 MG Tab PO SCH (21:31)
[2022-04-13] MEDS: Simvastatin 10 MG Tab PO SCH (21:31)
[2022-04-14 06:58] VITALS: BP 145/65; PULSE 72
[2022-04-14 07:15] LABS: ANION GAP 11.7 mEq/L (7-13)
[2022-04-14] MEDS: Cholecalciferol (Vitamin D3) 25 MCG Tab PO SCH (08:15)
[2022-04-14] MEDS: risperiDONE 0.5 MG Tab PO SCH (08:16)
[2022-04-14] MEDS: Multivitamins with Iron/Calcium/Folic Acid/Minerals Tab PO SCH (08:16)
[2022-04-14] MEDS: Pantoprazole 40 MG Tab.CR PO SCH (08:17)
[2022-04-14] MEDS: DULoxetine 30 MG Cap PO SCH (08:17)
[2022-04-14] MEDS: Ferrous Sulfate 325 MG Tab PO SCH (08:19)
[2022-04-14] MEDS: Insulin Lispro 100 Units/ML 3 ML Vial SUBCUT SCH (08:20)
[2022-04-14] MEDS: Carvedilol 25 MG Tab PO SCH (08:20)
[2022-04-14] MEDS ORDERED: Magnesium Sulfate/Water 2 GM in Premix Bag 1 BAG IV ONE (08:22)
[2022-04-14] MEDS: Polyvinyl Alcohol 1.4% Ophth Soln 15 ML Bottle EYEBOTH SCH (08:24)
[2022-04-14] MEDS: Insulin Glarg,Human.Rec.Analog 100 Unit/ML SUBCUT SCH (08:24)
[2022-04-14] MEDS: Azithromycin 500 MG in Sodium Chloride 0.9% 250 ML IV SCH (08:30)
== END 2022-04-14 09:58 | disposition other institution (70) | DRG 871 ==
LOC: DL.ED 05:29 → DL.MS 07:53
PROVIDERS: ADMIT Internal Medicine; ATTEND Internal Medicine
DX: A41.9 Sepsis, unspecified organism (principal); G93.41 Metabolic encephalopathy; J18.9 Pneumonia, unspecified organism; I10 Essential (primary) hypertension; L89.154 Pressure ulcer of sacral region, stage 4; N39.0 Urinary tract infection, site not specified; R32 Unspecified urinary incontinence; N17.9 Acute kidney failure, unspecified; F03.918 Unspecified dementia, unspecified severity, with other behavioral disturbance; E11.9 Type 2 diabetes mellitus without complications; F32.A Depression, unspecified; Z66 Do not resuscitate; E87.20 Acidosis, unspecified; D72.829 Elevated white blood cell count, unspecified; E78.00 Pure hypercholesterolemia, unspecified; G30.9 Alzheimer's disease, unspecified; F02.80 Dementia in other diseases classified elsewhere, unspecified severity, without behavioral disturbance, psychotic disturbance, mood disturbance, and anxiety; Z20.822 Contact with and (suspected) exposure to COVID-19; N13.9 Obstructive and reflux uropathy, unspecified; N40.1 Benign prostatic hyperplasia with lower urinary tract symptoms; R33.8 Other retention of urine; Z96.0 Presence of urogenital implants; E11.65 Type 2 diabetes mellitus with hyperglycemia; J44.9 Chronic obstructive pulmonary disease, unspecified; E88.09 Other disorders of plasma-protein metabolism, not elsewhere classified; R13.12 Dysphagia, oropharyngeal phase; L89.619 Pressure ulcer of right heel, unspecified stage; B96.4 Proteus (mirabilis) (morganii) as the cause of diseases classified elsewhere; I25.10 Atherosclerotic heart disease of native coronary artery without angina pectoris; K80.20 Calculus of gallbladder without cholecystitis without obstruction; R79.89 Other specified abnormal findings of blood chemistry; E78.5 Hyperlipidemia, unspecified; I12.9 Hypertensive chronic kidney disease with stage 1 through stage 4 chronic kidney disease, or unspecified chronic kidney disease; N18.30 Chronic kidney disease, stage 3 unspecified; K59.09 Other constipation; K21.9 Gastro-esophageal reflux disease without esophagitis; M10.9 Gout, unspecified; F41.9 Anxiety disorder, unspecified; F32.9 Major depressive disorder, single episode, unspecified; R45.1 Restlessness and agitation; Z79.899 Other long term (current) drug therapy; Z79.4 Long term (current) use of insulin; Z86.16 Personal history of COVID-19
CPT/HCPCS: 36415; 70450; 71045; 71250; 80048; 80053; 81001; 82947; 83605; 83735; 83880; 84145; 84443; 85025; 86140; 87040; 87086; 87088; 87186; 93005; 96365; 99223; 99232; 99233; 99238; 99285-25; A9270-GY; J0456; J0696; J1815-GY; J3480; J3490; J7030; J7050; J7120; U0002

== ENCOUNTER 2022-07-14 06:28 | Observation (INO) | payer MEDICARE, BC ==
[2022-07-14 07:11] LABS: ANION GAP 12.7 mEq/L (7-13); CHLORIDE,CL 104 mmol/L (98-107); SODIUM,NA 140 mmol/L (136-145)
[2022-07-14 07:12] LABS: ESTIMATED GFR 44 mL/min (>=60)
[2022-07-14 07:41] LABS: CORONAVIRUS COVID-19 NAA NEGATIVE (NEGATIVE); RESPIRATORY SYNCYTIAL VIR NAA NEGATIVE (NEGATIVE)
[2022-07-14] MEDS ORDERED: Polyethylene Glycol 3350 Powder 17 GM Packet PO PRN (09:28)
[2022-07-14] MEDS ORDERED: Sodium Chloride 0.9% 10 ML Syringe FLUSH PRN (09:28)
[2022-07-14] MEDS ORDERED: Docusate Sodium 100 MG Cap PO PRN (09:28)
[2022-07-14] MEDS ORDERED: Magnesium Hydroxide 400 MG/5 ML Susp 30 ML Cup PO PRN ×2 (09:28→15:02)
[2022-07-14] MEDS ORDERED: Acetaminophen 325 MG Tab PO PRN (09:28)
[2022-07-14] MEDS ORDERED: Bisacodyl 5 MG Tab PO PRN (09:28)
[2022-07-14] MEDS ORDERED: Glucagon,Human Recombinant 1 MG Vial IM PRN (09:31)
[2022-07-14] MEDS ORDERED: 50% Dextrose in Water 50 ML Syringe IVPUSH PRN (09:31)
[2022-07-14] MEDS: Insulin Lispro 100 Units/ML 3 ML Vial SUBCUT SCH ×2 (12:55→17:30)
[2022-07-14] MEDS ORDERED: Atropine 1% Ophth Soln 5 ML Bottle SL PRN (15:02)
[2022-07-14] MEDS ORDERED: Calcium Carbonate 500 MG Tab.Chew PO PRN (15:02)
[2022-07-14] MEDS ORDERED: Loperamide 2 MG Cap PO PRN (16:01)
[2022-07-14] MEDS ORDERED: Dextrose 5%-0.9% NaCl 1,000 ML IV SCH (17:15)
[2022-07-14] MEDS ORDERED: Mirtazapine 15 MG Tab PO SCH (21:00)
[2022-07-14] MEDS ORDERED: Simvastatin 10 MG Tab PO SCH (21:00)
[2022-07-14] MEDS ORDERED: Ziprasidone Mesylate 20 MG Vial IM PRN (21:31)
[2022-07-14] MEDS: Sodium Chloride 0.9% 10 ML Syringe FLUSH SCH (21:49)
[2022-07-14] MEDS: Polyvinyl Alcohol 1.4% Ophth Soln 15 ML Bottle EYEBOTH SCH (21:50)
[2022-07-15] MEDS ORDERED: Pantoprazole 40 MG Tab.CR PO SCH (06:00)
[2022-07-15 07:10] LABS: ANION GAP 12.8 mEq/L (7-13)
[2022-07-15] MEDS ORDERED: Carvedilol 6.25 MG Tab PO SCH (08:00)
[2022-07-15] MEDS: Sodium Chloride 0.9% 10 ML Syringe FLUSH SCH (08:09)
[2022-07-15] MEDS: Insulin Lispro 100 Units/ML 3 ML Vial SUBCUT SCH ×2 (08:10→11:25)
[2022-07-15] MEDS: Polyvinyl Alcohol 1.4% Ophth Soln 15 ML Bottle EYEBOTH SCH (08:11)
[2022-07-15] MEDS ORDERED: Polyethylene Glycol 3350 Powder 17 GM Packet PO SCH (09:00)
[2022-07-15] MEDS ORDERED: Multivitamin Tab PO SCH (09:00)
[2022-07-15] MEDS ORDERED: Isosorbide Mononitrate 30 MG Tab.ER PO SCH (09:00)
[2022-07-15] MEDS ORDERED: Allopurinol 300 MG Tab PO SCH (09:00)
[2022-07-15] MEDS ORDERED: Ferrous Sulfate 325 MG Tab PO SCH (09:00)
[2022-07-15] MEDS ORDERED: Cholecalciferol (Vitamin D3) 25 MCG Tab PO SCH (09:00)
[2022-07-15] MEDS ORDERED: OLANZapine 5 MG Tab PO SCH (09:00)
[2022-07-15 11:53] VITALS: BP 103/53; PULSE 73
[2022-07-15] MEDS ORDERED: Finasteride 5 MG Tab PO SCH (21:00)
== END 2022-07-15 13:10 | disposition other institution (70) ==
LOC: DL.ED 06:28 → DL.MS 08:10 → DL.ED 09:15
PROVIDERS: ADMIT Internal Medicine; ATTEND Internal Medicine
DX: S09.90XA Unspecified injury of head, initial encounter (principal); I67.82 Cerebral ischemia; M47.812 Spondylosis without myelopathy or radiculopathy, cervical region; I12.9 Hypertensive chronic kidney disease with stage 1 through stage 4 chronic kidney disease, or unspecified chronic kidney disease; N18.30 Chronic kidney disease, stage 3 unspecified; E11.22 Type 2 diabetes mellitus with diabetic chronic kidney disease; I25.10 Atherosclerotic heart disease of native coronary artery without angina pectoris; E88.09 Other disorders of plasma-protein metabolism, not elsewhere classified; K21.9 Gastro-esophageal reflux disease without esophagitis; M10.9 Gout, unspecified; R33.9 Retention of urine, unspecified; N40.0 Benign prostatic hyperplasia without lower urinary tract symptoms; F41.9 Anxiety disorder, unspecified; F32.9 Major depressive disorder, single episode, unspecified; E78.00 Pure hypercholesterolemia, unspecified; Z79.4 Long term (current) use of insulin; Z79.899 Other long term (current) drug therapy; Z98.890 Other specified postprocedural states; Z20.822 Contact with and (suspected) exposure to COVID-19; W19.XXXA Unspecified fall, initial encounter
CPT/HCPCS: 0241U; 36415; 70450; 72125; 80053; 81001; 82947; 83605; 83735; 84484; 85025; 87040; 93005; 93010; 99284; 99285; A9270-GY; G0378; J3490; J7042

== ENCOUNTER 2022-07-28 16:45 | Emergency (ER) | payer MEDICARE, BC ==
[2022-07-28 17:11] VITALS: PULSE 85
[2022-07-28] MEDS ORDERED: cefTRIAXone 1 GM, Lidocaine 1% 2.1 ML IM ONE ×2 (17:11)
[2022-07-28 18:02] VITALS: BP 118/54
== END 2022-07-28 17:33 | disposition home or self-care (01) ==
LOC: DL.ED 16:45
DX: J18.9 Pneumonia, unspecified organism (principal); E78.00 Pure hypercholesterolemia, unspecified; E11.22 Type 2 diabetes mellitus with diabetic chronic kidney disease; I12.9 Hypertensive chronic kidney disease with stage 1 through stage 4 chronic kidney disease, or unspecified chronic kidney disease; N18.9 Chronic kidney disease, unspecified; K21.9 Gastro-esophageal reflux disease without esophagitis; M10.9 Gout, unspecified; Z79.899 Other long term (current) drug therapy; Z79.4 Long term (current) use of insulin
CPT/HCPCS: 96372; 99283; J0696; J3490

== ENCOUNTER 2022-08-31 04:09 | Emergency (ER) | payer MEDICARE, BC ==
[2022-08-31 04:38] LABS: ANION GAP 10.8 mEq/L (7-13); CHLORIDE,CL 102 mmol/L (98-107); SODIUM,NA 138 mmol/L (136-145)
[2022-08-31 04:39] LABS: ESTIMATED GFR 41 mL/min (>=60)
[2022-08-31] MEDS ORDERED: cefTRIAXone 1 GM Vial IVPUSH ONE (04:50)
[2022-08-31 04:52] VITALS: BP 157/84; PULSE 92
[2022-08-31] MEDS ORDERED: Sodium Chloride 0.9% 1,000 ML IV ONE (04:52)
[2022-08-31] MEDS ORDERED: Ciprofloxacin 500 MG Tab PO ONE (05:50)
[2022-08-31 06:05] LABS: CORONAVIRUS COVID-19 NAA NEGATIVE (NEGATIVE)
== END 2022-08-31 07:20 ==
LOC: DL.ED 04:09
DX: N39.0 Urinary tract infection, site not specified (principal); B96.89 Other specified bacterial agents as the cause of diseases classified elsewhere; E78.00 Pure hypercholesterolemia, unspecified; I12.9 Hypertensive chronic kidney disease with stage 1 through stage 4 chronic kidney disease, or unspecified chronic kidney disease; E11.22 Type 2 diabetes mellitus with diabetic chronic kidney disease; N18.9 Chronic kidney disease, unspecified; N40.0 Benign prostatic hyperplasia without lower urinary tract symptoms; K21.9 Gastro-esophageal reflux disease without esophagitis; Z79.4 Long term (current) use of insulin; Z79.899 Other long term (current) drug therapy; Z20.822 Contact with and (suspected) exposure to COVID-19
CPT/HCPCS: 0240U; 36415; 71045; 80053; 81001; 83605; 83735; 83880; 85025; 86140; 87040; 93005; 96361; 96374; 99285; A9270; J0696; J7030; 93010; 99284

== ENCOUNTER 2022-09-29 22:21 | Inpatient (IN) | payer MEDICARE, BC ==
[2022-09-29 22:50] LABS: BASOPHILS PERCENT AUTO 0.3 % (0.0-1.0); EOSINOPHILS PERCENT AUTO 3.1 % (1.0-3.0); HEMATOCRIT 32.9 % (40.0-54.0); HEMOGLOBIN 10.8 g/dL (14.0-18.0); LYMPHOCYTES PERCENT AUTO 6.9 % (20.5-50.1); MEAN CORPUSCULAR HEMOGLOBIN 28.9 pg (27.0-34.0); MEAN CORPUSCULAR HGB CONC 32.8 g/dL (33.0-35.0); MONOCYTES PERCENT AUTO 3.4 % (2-8); NEUTROPHILS PERCENT AUTO 86.3 % (42.2-75.2); PLATELET COUNT,PLT 254 10^3/uL (150-450); RED BLOOD CELL COUNT 3.74 10^6/uL (4.6-6.2); WHITE BLOOD CELL COUNT,WBC 14.4 10^3/uL (5.0-10.0)
[2022-09-29 22:55] LABS: O2 DELIVERY DEVICE NASAL CANNULA
[2022-09-29 22:56] LABS: BASE EXCESS VENOUS 1 mmol/l ((-2)-(+3)); BICARBONATE,VENOUS 27 mmol/l (19-25); O2 SATURATION VENOUS 19 % (60-80); PCO2 VENOUS 51 mmHg (41-51); PH,VENOUS 7.34 (7.31-7.41); PO2 VENOUS 16 mmHg (35-42)
[2022-09-29] MEDS ORDERED: cefTRIAXone 2 GM Vial IVPUSH ONE (23:06)
[2022-09-29] MEDS ORDERED: Azithromycin 500 MG in Sodium Chloride 0.9% 250 ML IV ONE (23:06)
[2022-09-29] MEDS ORDERED: Furosemide 20 MG/2 ML VIAL IVPUSH ONE (23:06)
[2022-09-29 23:15] LABS: APPEARANCE,URINE CLEAR (CLEAR); BILIRUBIN,URINE NEGATIVE (NEGATIVE); COLOR,URINE YELLOW (YELLOW); GLUCOSE,URINE NEGATIVE (NEGATIVE); KETONES,URINE NEGATIVE (NEGATIVE); LEUKOCYTE ESTERASE,URINE NEGATIVE (NEGATIVE); NITRITE,URINE NEGATIVE (NEGATIVE); OCCULT BLOOD,URINE TRACE-INTACT (NEGATIVE); PH,URINE 5.5 (5.0-9.0); PROTEIN,URINE 30 (NEGATIVE); UROBILINOGEN,URINE 0.2 mg/dL (0.2-1.0)
[2022-09-29 23:22] LABS: ALBUMIN 3.3 g/dL (3.4-5.0); ANION GAP 12.8 mEq/L (7-13); BILIRUBIN TOTAL 0.4 mg/dL (0.2-1.0); BUN/CREATININE RATIO 38.8 (No establ ref range); C-REACTIVE PROTEIN 1.6 mg/dL (0.0-0.9); CALCIUM 8.8 mg/dL (8.5-10.1); CREATININE 1.83 mg/dL (0.70-1.30); EST CRCL DRUG DOSING (CG) 32.58 mL/min; MAGNESIUM 1.9 mg/dL (1.8-2.4); POTASSIUM,K 4.8 mmol/L (3.5-5.1); PROTEIN TOTAL,TP 8.5 g/dL (6.4-8.2)
[2022-09-29 23:23] LABS: A/G RATIO 0.63; LACTIC ACID 1.5 mmol/L (0.4-2.0)
[2022-09-29 23:25] LABS: BACTERIA,URINE NOT SEEN /HPF (0-FEW/HPF); EPITHELIAL CELLS,URINE RARE /HPF (NOT SEEN); WBC,URINE NOT SEEN /HPF (0-5/HPF)
[2022-09-29 23:26] LABS: INR 0.9 (0.9-1.2); PROTHROMBIN TIME 9.3 SEC (9.0-12.0); PTT,PARTIAL THROMBOPLSTIN TIME 25.6 SEC (22.0-34.0)
[2022-09-29 23:57] LABS: CORONAVIRUS COVID-19 NAA NEGATIVE (NEGATIVE); INFLUENZA A NAA NEGATIVE (NEGATIVE); INFLUENZA B NAA NEGATIVE (NEGATIVE); RESPIRATORY SYNCYTIAL VIR NAA NEGATIVE (NEGATIVE)
[2022-09-30] MEDS ORDERED: Acetaminophen 500 MG Tab PO ONE (00:11)
[2022-09-30] MEDS ORDERED: Calcium Carbonate 500 MG Tab.Chew PO PRN (02:07)
[2022-09-30] MEDS ORDERED: oxyCODONE 5 MG Tab PO PRN (02:07)
[2022-09-30] MEDS ORDERED: Magnesium Hydroxide 400 MG/5 ML Susp 30 ML Cup PO PRN (02:07)
[2022-09-30] MEDS ORDERED: Bisacodyl 10 MG Supp RECTAL PRN (02:07)
[2022-09-30] MEDS ORDERED: Atropine 1% Ophth Soln 5 ML Bottle SL PRN (02:07)
[2022-09-30] MEDS ORDERED: Nystatin Topical Powder 30 GM Bottle TOP PRN (02:07)
[2022-09-30] MEDS ORDERED: Loperamide 2 MG Cap PO PRN (02:07)
[2022-09-30] MEDS ORDERED: Glucagon,Human Recombinant 1 MG Vial IM PRN (02:18)
[2022-09-30] MEDS ORDERED: 50% Dextrose in Water 50 ML Syringe IVPUSH PRN (02:18)
[2022-09-30] MEDS ORDERED: Ondansetron 4 MG/2 ML SDV IVPUSH PRN (02:20)
[2022-09-30] MEDS ORDERED: Docusate Sodium 100 MG Cap PO PRN (02:20)
[2022-09-30] MEDS ORDERED: Albuterol 0.083% 2.5 MG/3 ML Neb Soln NEB PRN (02:49)
[2022-09-30] MEDS ORDERED: Albuterol/Ipratropium 3.0-0.5 MG/3 ML Neb Soln NEB PRN (02:49)
[2022-09-30] MEDS ORDERED: Pantoprazole 40 MG Tab.CR PO SCH (06:00)
[2022-09-30 07:19] LABS: HEMATOCRIT 27.7 % (40.0-54.0); HEMOGLOBIN 9.2 g/dL (14.0-18.0); MEAN CORPUSCULAR HEMOGLOBIN 29.1 pg (27.0-34.0); MEAN CORPUSCULAR HGB CONC 33.2 g/dL (33.0-35.0); MEAN CORPUSCULAR VOLUME 87.7 fL (80-100); O2 DELIVERY DEVICE BIPAP; RED BLOOD CELL COUNT 3.16 10^6/uL (4.6-6.2); WHITE BLOOD CELL COUNT,WBC 15.4 10^3/uL (5.0-10.0)
[2022-09-30 07:34] LABS: BASE EXCESS VENOUS 0.2 mmol/l ((-2)-(+3)); BICARBONATE,VENOUS 26 mmol/l (19-25); O2 SATURATION VENOUS 76.9 % (60-80); PCO2 VENOUS 47 mmHg (41-51); PH,VENOUS 7.35 (7.31-7.41); PO2 VENOUS 46 mmHg (35-42)
[2022-09-30 07:40] LABS: ANION GAP 12.5 mEq/L (7-13); CALCIUM 8.5 mg/dL (8.5-10.1); CREATININE 2.08 mg/dL (0.70-1.30); EST CRCL DRUG DOSING (CG) 26.03 mL/min; POTASSIUM,K 4.5 mmol/L (3.5-5.1)
[2022-09-30] MEDS ORDERED: Carvedilol 25 MG Tab PO SCH (08:00)
[2022-09-30] MEDS ORDERED: Acetaminophen 325 MG Tab PO PRN (08:04)
[2022-09-30] MEDS ORDERED: [UNRECOGNIZED DRUG - OTHER] PO SCH (09:00)
[2022-09-30] MEDS ORDERED: NUT TX GLUC INTOLER LAC FR SOY PO SCH ×2 (09:00)
[2022-09-30] MEDS ORDERED: [UNRECOGNIZED DRUG - OTHER] PO SCH (09:00)
[2022-09-30] MEDS ORDERED: MENTHOL TOP SCH (09:00)
[2022-09-30] MEDS ORDERED: ZINC OXIDE TOP SCH (09:00)
[2022-09-30] MEDS: DULoxetine 30 MG Cap PO SCH (09:27)
[2022-09-30] MEDS: Isosorbide Mononitrate 30 MG Tab.ER PO SCH (09:29)
[2022-09-30] MEDS: Allopurinol 300 MG Tab PO SCH (09:30)
[2022-09-30] MEDS: Multivitamin Tab PO SCH (09:31)
[2022-09-30] MEDS: Ferrous Sulfate 325 MG Tab PO SCH (09:31)
[2022-09-30] MEDS: Cholecalciferol (Vitamin D3) 25 MCG Tab PO SCH (09:31)
[2022-09-30] MEDS: Insulin Lispro 100 Units/ML 3 ML Vial SUBCUT SCH ×4 (09:32→20:59)
[2022-09-30] MEDS: Heparin Sodium 5,000 Units/ML Vial SUBCUT SCH ×2 (09:32→21:06)
[2022-09-30] MEDS: OLANZapine 5 MG Tab PO SCH ×2 (09:32→21:11)
[2022-09-30] MEDS: Polyethylene Glycol 3350 Powder 17 GM Packet PO SCH (09:38)
[2022-09-30] MEDS: Sodium Chloride 0.9% 1,000 ML IV SCH (12:14)
[2022-09-30] MEDS ORDERED: cefTRIAXone 1 GM Vial IVPUSH SCH (17:00)
[2022-09-30] MEDS: Carvedilol 25 MG Tab PO SCH (17:22)
[2022-09-30] MEDS ORDERED: Mirtazapine 15 MG Tab PO SCH (21:00)
[2022-09-30] MEDS ORDERED: INSULIN DETEMIR 100 UNIT/ML SQ SCH (21:00)
[2022-09-30] MEDS ORDERED: Finasteride 5 MG Tab PO SCH (21:00)
[2022-09-30] MEDS ORDERED: Insulin Glarg,Human.Rec.Analog 100 Unit/ML SUBCUT SCH (21:00)
[2022-10-01] MEDS: Sodium Chloride 0.9% 1,000 ML IV SCH (05:29)
[2022-10-01 05:41] LABS: HEMATOCRIT 27.2 % (40.0-54.0); HEMOGLOBIN 8.9 g/dL (14.0-18.0); MEAN CORPUSCULAR HEMOGLOBIN 28.7 pg (27.0-34.0); MEAN CORPUSCULAR HGB CONC 32.7 g/dL (33.0-35.0); MEAN CORPUSCULAR VOLUME 87.7 fL (80-100); RED BLOOD CELL COUNT 3.1 10^6/uL (4.6-6.2); WHITE BLOOD CELL COUNT,WBC 10.1 10^3/uL (5.0-10.0)
[2022-10-01 05:54] LABS: ANION GAP 9.6 mEq/L (7-13); CALCIUM 8.1 mg/dL (8.5-10.1); CREATININE 1.63 mg/dL (0.70-1.30); EST CRCL DRUG DOSING (CG) 33.22 mL/min; POTASSIUM,K 3.6 mmol/L (3.5-5.1)
[2022-10-01] MEDS ORDERED: Pantoprazole 40 MG Tab.CR PO SCH ×2 (06:00→09:00)
[2022-10-01] MEDS ORDERED: cefTRIAXone 1 GM Vial IVPUSH SCH (07:00)
[2022-10-01] MEDS: Insulin Lispro 100 Units/ML 3 ML Vial SUBCUT SCH ×2 (08:05→12:35)
[2022-10-01] MEDS ORDERED: Azithromycin 250 MG Tab PO SCH (09:00)
[2022-10-01] MEDS: Allopurinol 300 MG Tab PO SCH (09:06)
[2022-10-01] MEDS: Cholecalciferol (Vitamin D3) 25 MCG Tab PO SCH (09:06)
[2022-10-01] MEDS: Carvedilol 25 MG Tab PO SCH (09:07)
[2022-10-01] MEDS: Isosorbide Mononitrate 30 MG Tab.ER PO SCH (09:08)
[2022-10-01] MEDS: Ferrous Sulfate 325 MG Tab PO SCH (09:08)
[2022-10-01] MEDS: Multivitamin Tab PO SCH (09:08)
[2022-10-01] MEDS: OLANZapine 5 MG Tab PO SCH (09:08)
[2022-10-01] MEDS: DULoxetine 30 MG Cap PO SCH (09:09)
[2022-10-01] MEDS: Heparin Sodium 5,000 Units/ML Vial SUBCUT SCH (09:09)
[2022-10-01 09:10] VITALS: BP 109/60; PULSE 82
[2022-10-01] MEDS: Polyethylene Glycol 3350 Powder 17 GM Packet PO SCH (11:46)
== END 2022-10-01 10:30 | DRG 871 ==
LOC: DL.ED 22:21 → DL.MS 09-30 00:32
PROVIDERS: ADMIT Internal Medicine; ATTEND Internal Medicine
PROC: 5A09457 Assistance with Respiratory Ventilation, 24-96 Consecutive Hours, Continuous Positive Airway Pressure (ICD-10-PCS; principal; 2022-09-29)
PROC: 3E03329 Introduction of Other Anti-infective into Peripheral Vein, Percutaneous Approach (ICD-10-PCS; 2022-10-01)
DX: A41.9 Sepsis, unspecified organism (principal); J18.9 Pneumonia, unspecified organism; J96.01 Acute respiratory failure with hypoxia; L89.154 Pressure ulcer of sacral region, stage 4; J96.02 Acute respiratory failure with hypercapnia; R65.10 Systemic inflammatory response syndrome (SIRS) of non-infectious origin without acute organ dysfunction; E78.00 Pure hypercholesterolemia, unspecified; K59.09 Other constipation; K21.9 Gastro-esophageal reflux disease without esophagitis; G89.29 Other chronic pain; M81.0 Age-related osteoporosis without current pathological fracture; Z66 Do not resuscitate; G30.9 Alzheimer's disease, unspecified; F02.80 Dementia in other diseases classified elsewhere, unspecified severity, without behavioral disturbance, psychotic disturbance, mood disturbance, and anxiety; E78.5 Hyperlipidemia, unspecified; Z96.659 Presence of unspecified artificial knee joint; N18.32 Chronic kidney disease, stage 3b; G47.00 Insomnia, unspecified; E11.65 Type 2 diabetes mellitus with hyperglycemia; Z20.822 Contact with and (suspected) exposure to COVID-19; M54.9 Dorsalgia, unspecified; F41.9 Anxiety disorder, unspecified; I25.10 Atherosclerotic heart disease of native coronary artery without angina pectoris; N40.0 Benign prostatic hyperplasia without lower urinary tract symptoms; E11.22 Type 2 diabetes mellitus with diabetic chronic kidney disease; M10.9 Gout, unspecified; F32.A Depression, unspecified; I12.9 Hypertensive chronic kidney disease with stage 1 through stage 4 chronic kidney disease, or unspecified chronic kidney disease; Z79.4 Long term (current) use of insulin; Z79.899 Other long term (current) drug therapy; Z86.16 Personal history of COVID-19; Z98.49 Cataract extraction status, unspecified eye
CPT/HCPCS: 0241U; 36415; 51702; 71045; 80048; 80053; 81001; 82803; 82947; 83605; 83735; 83880; 84145; 84484; 85025; 85027; 85610; 85730; 86140; 87040; 93005; 93010; 94660; 96365; 96375; 99223; 99239; 99285; 99285-25; A9270-GY; J0456; J0696; J1644; J1815-GY; J1940; J7030; J7050

== ENCOUNTER 2022-10-03 14:14 | Emergency (ER) | payer MEDICARE, BC ==
[2022-10-03] MEDS ORDERED: Albuterol/Ipratropium 3.0-0.5 MG/3 ML Neb Soln NEB ONE (14:33)
[2022-10-03 14:38] VITALS: BP 110/56
[2022-10-03 14:44] VITALS: PULSE 79
[2022-10-03] MEDS ORDERED: Acetaminophen 500 MG Tab PO ONE (15:28)
[2022-10-03 15:46] LABS: ALBUMIN 2.7 g/dL (3.4-5.0); ANION GAP 13.1 mEq/L (7-13); BILIRUBIN TOTAL 0.4 mg/dL (0.2-1.0); BUN/CREATININE RATIO 31.5 (No establ ref range); C-REACTIVE PROTEIN 4.9 mg/dL (0.0-0.9); CALCIUM 8.5 mg/dL (8.5-10.1); CREATININE 1.49 mg/dL (0.70-1.30); EST CRCL DRUG DOSING (CG) 36.34 mL/min; POTASSIUM,K 4.1 mmol/L (3.5-5.1); PROTEIN TOTAL,TP 7.3 g/dL (6.4-8.2)
[2022-10-03 15:49] LABS: A/G RATIO 0.59; LACTIC ACID 0.7 mmol/L (0.4-2.0)
[2022-10-03 16:05] LABS: BASOPHILS PERCENT AUTO 0.4 % (0.0-1.0); HEMATOCRIT 26.9 % (40.0-54.0); HEMOGLOBIN 8.8 g/dL (14.0-18.0); LYMPHOCYTES PERCENT AUTO 16.3 % (20.5-50.1); MEAN CORPUSCULAR HEMOGLOBIN 28.9 pg (27.0-34.0); MEAN CORPUSCULAR HGB CONC 32.7 g/dL (33.0-35.0); MEAN CORPUSCULAR VOLUME 88.2 fL (80-100); MONOCYTES PERCENT AUTO 7.8 % (2-8); NEUTROPHILS PERCENT AUTO 72.5 % (42.2-75.2); PLATELET COUNT,PLT 218 10^3/uL (150-450); RED BLOOD CELL COUNT 3.05 10^6/uL (4.6-6.2); WHITE BLOOD CELL COUNT,WBC 5.3 10^3/uL (5.0-10.0)
== END 2022-10-03 17:09 ==
LOC: DL.ED 14:14
DX: F03.90 Unspecified dementia, unspecified severity, without behavioral disturbance, psychotic disturbance, mood disturbance, and anxiety (principal); J18.9 Pneumonia, unspecified organism; E78.00 Pure hypercholesterolemia, unspecified; I12.9 Hypertensive chronic kidney disease with stage 1 through stage 4 chronic kidney disease, or unspecified chronic kidney disease; E11.22 Type 2 diabetes mellitus with diabetic chronic kidney disease; N18.9 Chronic kidney disease, unspecified; K21.9 Gastro-esophageal reflux disease without esophagitis; N40.0 Benign prostatic hyperplasia without lower urinary tract symptoms; Z79.4 Long term (current) use of insulin; Z86.16 Personal history of COVID-19; Z79.899 Other long term (current) drug therapy
CPT/HCPCS: 36415; 80053; 83605; 85025; 86140; 94640; 99284; 99285; A9270; J7620-GY

== ENCOUNTER 2022-10-12 20:56 | Emergency (ER) | payer MEDICARE, BC ==
[2022-10-12 21:14] LABS: BASOPHILS PERCENT AUTO 0.4 % (0.0-1.0); EOSINOPHILS PERCENT AUTO 3.8 % (1.0-3.0); HEMATOCRIT 33.1 % (40.0-54.0); HEMOGLOBIN 10.9 g/dL (14.0-18.0); LYMPHOCYTES PERCENT AUTO 11.4 % (20.5-50.1); MEAN CORPUSCULAR HEMOGLOBIN 28.8 pg (27.0-34.0); MEAN CORPUSCULAR HGB CONC 32.9 g/dL (33.0-35.0); MEAN CORPUSCULAR VOLUME 87.3 fL (80-100); MONOCYTES PERCENT AUTO 5.3 % (2-8); NEUTROPHILS PERCENT AUTO 79.1 % (42.2-75.2); PLATELET COUNT,PLT 324 10^3/uL (150-450); RED BLOOD CELL COUNT 3.79 10^6/uL (4.6-6.2); WHITE BLOOD CELL COUNT,WBC 11.1 10^3/uL (5.0-10.0)
[2022-10-12 21:32] LABS: A/G RATIO 0.6; ALANINE AMINOTRANSFERASE,ALT 21 U/L (16-63); ALBUMIN 3.4 g/dL (3.4-5.0); ALKALINE PHOSPHATASE 87 U/L (46-116); ANION GAP 13.1 mEq/L (7-13); ASPARTATE AMNIOTRANSFERASE,AST 29 U/L (15-37); BILIRUBIN TOTAL 0.4 mg/dL (0.2-1.0); BLOOD UREA NITROGEN,BUN 50 mg/dL (7-18); BUN/CREATININE RATIO 31.4 (No establ ref range); CALCIUM 9.5 mg/dL (8.5-10.1); CARBON DIOXIDE,CO2 28 mmol/L (21-32); CHLORIDE,CL 102 mmol/L (98-107); CREATININE 1.59 mg/dL (0.70-1.30); GLUCOSE RANDOM 111 mg/dL (70-99); POTASSIUM,K 4.1 mmol/L (3.5-5.1); PROTEIN TOTAL,TP 8.9 g/dL (6.4-8.2); SODIUM,NA 139 mmol/L (136-145)
[2022-10-12 21:41] LABS: ESTIMATED GFR 43 mL/min (>=60)
[2022-10-13 01:11] VITALS: BP 134/86; PULSE 75
== END 2022-10-13 01:32 ==
LOC: DL.ED 20:56
DX: S06.2XAA Diffuse traumatic brain injury with loss of consciousness status unknown, initial encounter (principal); E11.649 Type 2 diabetes mellitus with hypoglycemia without coma; E78.00 Pure hypercholesterolemia, unspecified; I12.9 Hypertensive chronic kidney disease with stage 1 through stage 4 chronic kidney disease, or unspecified chronic kidney disease; E11.22 Type 2 diabetes mellitus with diabetic chronic kidney disease; N18.9 Chronic kidney disease, unspecified; M10.9 Gout, unspecified; Z86.16 Personal history of COVID-19; Z79.4 Long term (current) use of insulin; Z79.899 Other long term (current) drug therapy; W05.0XXA Fall from non-moving wheelchair, initial encounter; Y92.129 Unspecified place in nursing home as the place of occurrence of the external cause
CPT/HCPCS: 36415; 70450; 71045; 72125; 80053; 82947; 85025; 93005; 99285

== ENCOUNTER 2023-02-17 14:34 | Inpatient (IN) | payer MEDICARE, BC ==
[2023-02-17 15:03] LABS: HEMATOCRIT 37.5 % (40.0-54.0); HEMOGLOBIN 11.3 g/dL (14.0-18.0); MEAN CORPUSCULAR HEMOGLOBIN 29.7 pg (27.0-34.0); MEAN CORPUSCULAR HGB CONC 30.1 g/dL (33.0-35.0); MEAN CORPUSCULAR VOLUME 98.7 fL (80-100); PLATELET COUNT,PLT 327 10^3/uL (150-450); WHITE BLOOD CELL COUNT,WBC 14.5 10^3/uL (5.0-10.0)
[2023-02-17 15:16] LABS: BASOPHILS PERCENT AUTO 0.7 % (0.0-1.0); LYMPHOCYTES PERCENT AUTO 9.6 % (20.5-50.1); MONOCYTES PERCENT AUTO 3.7 % (2-8)
[2023-02-17 15:26] LABS: LACTIC ACID 1.4 mmol/L (0.4-2.0)
[2023-02-17 15:32] LABS: ALANINE AMINOTRANSFERASE,ALT 18 U/L (16-63); ALBUMIN 2.5 g/dL (3.4-5.0); ALKALINE PHOSPHATASE 90 U/L (46-116); ANION GAP 15.6 mEq/L (7-13); ASPARTATE AMNIOTRANSFERASE,AST 23 U/L (15-37); BILIRUBIN TOTAL 0.4 mg/dL (0.2-1.0); BLOOD UREA NITROGEN,BUN 123 mg/dL (7-18); BUN/CREATININE RATIO 31.1 (No establ ref range); CALCIUM 9.9 mg/dL (8.5-10.1); CARBON DIOXIDE,CO2 28 mmol/L (21-32); CHLORIDE,CL 126 mmol/L (98-107); CREATININE 3.96 mg/dL (0.70-1.30); GLUCOSE RANDOM 141 mg/dL (70-99); POTASSIUM,K 4.6 mmol/L (3.5-5.1); PROTEIN TOTAL,TP 9.6 g/dL (6.4-8.2)
[2023-02-17 15:39] LABS: A/G RATIO 0.35; ESTIMATED GFR 14 mL/min (>=60); SODIUM,NA 165 mmol/L (136-145)
[2023-02-17 15:49] LABS: APPEARANCE,URINE CLOUDY (CLEAR); BILIRUBIN,URINE NEGATIVE (NEGATIVE); COLOR,URINE YELLOW (YELLOW); GLUCOSE,URINE NEGATIVE (NEGATIVE); KETONES,URINE NEGATIVE (NEGATIVE); LEUKOCYTE ESTERASE,URINE LARGE (NEGATIVE); NITRITE,URINE POSITIVE (NEGATIVE); OCCULT BLOOD,URINE SMALL (NEGATIVE); PROTEIN,URINE 100 (NEGATIVE); UROBILINOGEN,URINE 0.2 mg/dL (0.2-1.0)
[2023-02-17] MEDS ORDERED: Sodium Chloride 0.9% 1,000 ML IV ONE (15:51)
[2023-02-17] MEDS ORDERED: cefTRIAXone 2 GM Vial IVPUSH ONE (15:55)
[2023-02-17 16:03] LABS: BASOPHILS PERCENT MAN 1; EOSINOPHILS PERCENT MAN 5 % (1-3); LYMPHOCYTES PERCENT MAN 9 % (20-50); MONOCYTES PERCENT MAN 1 % (2-8); SEG NEUTROPHILS PERCENT MAN 84 % (42-75)
[2023-02-17 16:04] LABS: ANISOCYTOSIS 1+ SLIGHT; PLATELET COUNT ESTIMATE ADEQUATE
[2023-02-17 16:19] LABS: EPITHELIAL CELLS,URINE NOT SEEN /HPF (NOT SEEN)
[2023-02-17 16:20] LABS: AMORPHOUS SEDIMENT,URINE FEW /HPF (NOT SEEN); BACTERIA,URINE FEW /HPF (0-FEW/HPF)
[2023-02-17 16:21] LABS: RBC,URINE 0-5 /HPF (0-5); WBC,URINE SEMI-PACKED /HPF (0-5/HPF)
[2023-02-17] MEDS ORDERED: Acetaminophen 325 MG Tab PO PRN (16:27)
[2023-02-17] MEDS ORDERED: Ondansetron 4 MG/2 ML SDV IVPUSH PRN (16:27)
[2023-02-17] MEDS ORDERED: Sodium Chloride 0.9% 10 ML Syringe FLUSH PRN (16:27)
[2023-02-17] MEDS ORDERED: Polyethylene Glycol 3350 Powder 17 GM Packet PO PRN (16:27)
[2023-02-17] MEDS ORDERED: Albuterol/Ipratropium 3.0-0.5 MG/3 ML Neb Soln NEB PRN (16:27)
[2023-02-17] MEDS ORDERED: Magnesium Hydroxide 400 MG/5 ML Susp 30 ML Cup PO PRN (16:27)
[2023-02-17] MEDS ORDERED: HYDROmorphone 0.5 MG/0.5 ML Syringe IVPUSH PRN (16:27)
[2023-02-17] MEDS ORDERED: Bisacodyl 5 MG Tab PO PRN (16:27)
[2023-02-17] MEDS ORDERED: traMADol 50 MG Tab PO PRN (16:30)
[2023-02-17] MEDS ORDERED: LORazepam 2 MG/ML SDV IVPUSH PRN (16:34)
[2023-02-17] MEDS ORDERED: Hydrochlorothiazide 25 MG Tab PO ONE (16:36)
[2023-02-17 17:43] LABS: C-REACTIVE PROTEIN 5.22 ng/dL (<=0.30); PHOSPHORUS 4.9 mg/dL (2.6-4.7)
[2023-02-17 20:46] LABS: ANION GAP 19.3 mEq/L (7-13); CALCIUM 9.9 mg/dL (8.5-10.1); CREATININE 4.02 mg/dL (0.70-1.30); EST CRCL DRUG DOSING (CG) 14.38 mL/min; POTASSIUM,K 4.3 mmol/L (3.5-5.1)
[2023-02-18] MEDS ORDERED: Acetaminophen 650 MG Supp RECTAL PRN (00:12)
[2023-02-18] MEDS ORDERED: Dextrose 5% in Water 1,000 ML IV SCH (06:15)
[2023-02-18 07:45] VITALS: BP 112/57; PULSE 90
[2023-02-18 07:45] LABS: ALBUMIN 2.2 g/dL (3.4-5.0); ANION GAP 20.1 mEq/L (7-13); BILIRUBIN TOTAL 0.3 mg/dL (0.2-1.0); BUN/CREATININE RATIO 28.9 (No establ ref range); C-REACTIVE PROTEIN 9.25 ng/dL (<=0.30); CALCIUM 9.3 mg/dL (8.5-10.1); CREATININE 4.85 mg/dL (0.70-1.30); EST CRCL DRUG DOSING (CG) 11.92 mL/min; MAGNESIUM 2.6 mg/dL (1.8-2.4); POTASSIUM,K 5.1 mmol/L (3.5-5.1); PROTEIN TOTAL,TP 8.9 g/dL (6.4-8.2)
[2023-02-18 07:51] LABS: A/G RATIO 0.33
[2023-02-18] MEDS ORDERED: cefTRIAXone 2 GM Vial IVPUSH SCH (09:00)
[2023-02-18] MEDS ORDERED: Saccharomyces Boulardii (Probiotic) 250 MG Cap PO SCH (09:00)
[2023-02-18] MEDS ORDERED: Scopolamine 1.5 MG Transdermal Patch TOP ONE (09:50)
[2023-02-18] MEDS: Morphine 2 MG/ML SYRINGE IVPUSH PRN ×2 (15:48→20:51)
[2023-02-18] MEDS: Atropine 1% Ophth Soln 5 ML Bottle SL PRN ×2 (15:53→17:57)
[2023-02-18] MEDS: LORazepam 2 MG/ML SDV IVPUSH PRN ×2 (17:45→22:33)
[2023-02-18] MEDS ORDERED: Finasteride 5 MG Tab PO SCH (21:00)
[2023-02-19] MEDS: Morphine 2 MG/ML SYRINGE IVPUSH PRN ×8 (01:54→23:26)
[2023-02-19] MEDS: LORazepam 2 MG/ML SDV IVPUSH PRN ×5 (02:44→21:25)
[2023-02-20] MEDS: Morphine 2 MG/ML SYRINGE IVPUSH PRN ×9 (01:23→23:17)
[2023-02-20] MEDS: LORazepam 2 MG/ML SDV IVPUSH PRN ×4 (01:23→20:01)
[2023-02-20] MEDS: Atropine 1% Ophth Soln 5 ML Bottle SL PRN ×4 (06:25→23:23)
[2023-02-21] MEDS: LORazepam 2 MG/ML SDV IVPUSH PRN ×2 (03:43→07:39)
[2023-02-21] MEDS: Morphine 2 MG/ML SYRINGE IVPUSH PRN ×3 (03:44→10:12)
[2023-02-21] MEDS: Atropine 1% Ophth Soln 5 ML Bottle SL PRN ×3 (03:52→10:12)
== END 2023-02-21 10:48 | disposition swing bed (61) | DRG 640 ==
LOC: DL.ED 14:34 → DL.MS 16:22 → DL.ED 16:28 → DL.MS 02-18 11:19
PROVIDERS: ADMIT Internal Medicine; ATTEND Internal Medicine
DX: E87.1 Hypo-osmolality and hyponatremia (principal); G93.41 Metabolic encephalopathy; L89.154 Pressure ulcer of sacral region, stage 4; L89.614 Pressure ulcer of right heel, stage 4; E87.0 Hyperosmolality and hypernatremia; N17.9 Acute kidney failure, unspecified; F03.911 Unspecified dementia, unspecified severity, with agitation; F03.94 Unspecified dementia, unspecified severity, with anxiety; F03.93 Unspecified dementia, unspecified severity, with mood disturbance; N13.6 Pyonephrosis; Z66 Do not resuscitate; G30.9 Alzheimer's disease, unspecified; Z51.5 Encounter for palliative care; F02.80 Dementia in other diseases classified elsewhere, unspecified severity, without behavioral disturbance, psychotic disturbance, mood disturbance, and anxiety; K59.09 Other constipation; E11.22 Type 2 diabetes mellitus with diabetic chronic kidney disease; I12.9 Hypertensive chronic kidney disease with stage 1 through stage 4 chronic kidney disease, or unspecified chronic kidney disease; F41.9 Anxiety disorder, unspecified; J40 Bronchitis, not specified as acute or chronic; I25.10 Atherosclerotic heart disease of native coronary artery without angina pectoris; J44.9 Chronic obstructive pulmonary disease, unspecified; N18.30 Chronic kidney disease, stage 3 unspecified; D50.9 Iron deficiency anemia, unspecified; D63.1 Anemia in chronic kidney disease; E87.8 Other disorders of electrolyte and fluid balance, not elsewhere classified; E11.65 Type 2 diabetes mellitus with hyperglycemia; M10.9 Gout, unspecified; E83.52 Hypercalcemia; Z96.653 Presence of artificial knee joint, bilateral; R79.82 Elevated C-reactive protein (CRP); E88.09 Other disorders of plasma-protein metabolism, not elsewhere classified; F32.9 Major depressive disorder, single episode, unspecified; Z79.82 Long term (current) use of aspirin; E11.9 Type 2 diabetes mellitus without complications; I10 Essential (primary) hypertension; Z79.2 Long term (current) use of antibiotics; Z87.81 Personal history of (healed) traumatic fracture; Z98.890 Other specified postprocedural states; Z87.440 Personal history of urinary (tract) infections; E78.00 Pure hypercholesterolemia, unspecified; Z98.49 Cataract extraction status, unspecified eye; K21.9 Gastro-esophageal reflux disease without esophagitis; N40.0 Benign prostatic hyperplasia without lower urinary tract symptoms; Z79.4 Long term (current) use of insulin; Z79.899 Other long term (current) drug therapy; Z99.3 Dependence on wheelchair; Z86.16 Personal history of COVID-19
CPT/HCPCS: 36415; 51701; 71045; 76770; 80048; 80053; 81001; 82306; 82550; 82947; 83605; 83735; 84100; 85025; 86140; 87086; 96374; 99223; 99233; 99238; 99285; 99285-25; A9270-GY; C1758; J0696; J1170; J2060; J2270; J3490; J7030; J7060

== ENCOUNTER 2023-02-21 09:23 | Inpatient (IN) | payer MEDICARE, BC ==
[2023-02-21] MEDS ORDERED: Sodium Chloride 0.9% 10 ML Syringe FLUSH PRN (10:37)
[2023-02-21] MEDS: LORazepam 2 MG/ML SDV IVPUSH PRN ×3 (11:02→21:48)
[2023-02-21] MEDS: Morphine 2 MG/ML SYRINGE IVPUSH PRN ×4 (12:16→23:01)
[2023-02-21] MEDS: Atropine 1% Ophth Soln 5 ML Bottle SL PRN ×3 (12:18→21:50)
[2023-02-21] MEDS: Sodium Chloride 0.9% 10 ML Syringe FLUSH SCH (21:50)
[2023-02-22] MEDS: LORazepam 2 MG/ML SDV IVPUSH PRN ×3 (00:49→08:36)
[2023-02-22] MEDS: Morphine 2 MG/ML SYRINGE IVPUSH PRN ×5 (02:52→21:31)
[2023-02-22] MEDS: Atropine 1% Ophth Soln 5 ML Bottle SL PRN ×4 (06:00→21:40)
[2023-02-22] MEDS: Sodium Chloride 0.9% 10 ML Syringe FLUSH SCH (08:37)
== END 2023-02-23 00:20 | disposition expired | DRG 951 ==
LOC: DL.MS 10:25 → UNDOADMIN 10:48 → DL.MS 10:48 → UNDODISIN 02-23 00:20
PROVIDERS: ADMIT Internal Medicine; ATTEND Internal Medicine
DX: Z51.5 Encounter for palliative care (principal); L89.154 Pressure ulcer of sacral region, stage 4; F02.818 Dementia in other diseases classified elsewhere, unspecified severity, with other behavioral disturbance; I25.10 Atherosclerotic heart disease of native coronary artery without angina pectoris; J44.9 Chronic obstructive pulmonary disease, unspecified; E11.22 Type 2 diabetes mellitus with diabetic chronic kidney disease; Z66 Do not resuscitate; N40.0 Benign prostatic hyperplasia without lower urinary tract symptoms; N18.30 Chronic kidney disease, stage 3 unspecified; K59.09 Other constipation; I12.9 Hypertensive chronic kidney disease with stage 1 through stage 4 chronic kidney disease, or unspecified chronic kidney disease; K21.9 Gastro-esophageal reflux disease without esophagitis; M10.9 Gout, unspecified; F41.9 Anxiety disorder, unspecified; G89.29 Other chronic pain; M54.9 Dorsalgia, unspecified; F32.9 Major depressive disorder, single episode, unspecified; E87.8 Other disorders of electrolyte and fluid balance, not elsewhere classified; L89.619 Pressure ulcer of right heel, unspecified stage; E78.00 Pure hypercholesterolemia, unspecified; Z96.659 Presence of unspecified artificial knee joint; G30.9 Alzheimer's disease, unspecified; E11.65 Type 2 diabetes mellitus with hyperglycemia; Z79.899 Other long term (current) drug therapy; Z79.4 Long term (current) use of insulin; Z87.440 Personal history of urinary (tract) infections; Z86.16 Personal history of COVID-19; Z98.49 Cataract extraction status, unspecified eye
CPT/HCPCS: 99306; 99315; A9270-GY; J2060; J2270; J3490